=== PATIENT | female | born 1945 | race Caucasian/White ===

== ENCOUNTER 2017-08-15 09:37 | Day surgery (SDC) | payer MEDICARE, OTHER ==
[~2017-08-15 09:37] MED LIST: ALBU6.7H INH; HYCOS PO; MUCI600T PO; PRED20 PO
[2017-08-15 10:25] VITALS: BP 105/55; PULSE 77; RESP 14; TEMP 97.9; O2SAT 90
[2017-08-15 11:35] VITALS: BP 102/55; PULSE 76; RESP 18; TEMP 98.1; O2SAT 98
[2017-08-15 11:50] VITALS: BP 101/55; PULSE 75; RESP 18; O2SAT 98
[2017-08-15 12:15] VITALS: BP 106/58; PULSE 76; RESP 18; O2SAT 98
[2017-08-15 12:23] LABS: TOTAL PROTEIN,PERITONEAL FLUID 1.1 GM/DL
--- NOTE | 2017-08-15 12:52 | RADRPT ---
EXAM DATE/TIME: 08/15/2017 11:25 [place] COMPARISON: No previous studies available for comparison. INDICATIONS : Acites. MEDICAL HISTORY : Hepatitis A. Cirrhosis. GERD. SURGICAL HISTORY : Total knee replacement, left. Tonsillectomy. Cholecystectomy. Back surgery. Hysterectomy. ENCOUNTER: Subsequent ACUITY: 4 - 6 months PAIN SCORE: 0/10 LOCATION: Right lower quadrant FLUID: Total volume of 6200 cc of clear, yellow fluid was removed. Fluid was sent to lab for ordered studies. Post procedure scanning reveals no hematoma or other complication. TECHNIQUE: 1. Ultrasound guidance for abdominal paracentesis. 2. Paracentesis. The risks, benefits, and alternatives to ultrasound guided paracentesis were explained to the patient in detail including the risk of bleeding and infection. Written and verbal informed consent was obt ained. With the patient on the ultrasound table, ultrasound imaging was used to select the most appropriate approach for paracentesis. Overlying skin was prepped and draped in the usual sterile fashion and wi th a local anesthetic, a dermatotomy was made with an 11 blade scalpel. A 6 [place] [id number] ca theter was introduced into the peritoneal cavity and fluid was collected. The patient tolerated the procedure well and left the ultrasound suite in stable condition. CONCLUSION: Uncomplicated ultrasound guided paracentesis. Patient received albumin per protocol. Wilver Terrazas MD FACR on August 15, 2017 at 12:50 Board Certified Radiologist. This report was verified electronically.
[2017-08-15] MEDS ORDERED: ALBUMIN 25% INJ 0 ML IV ONE (13:00)
[2017-08-15 13:03] LABS: PERITONEAL BASO 1 %; PERITONEAL HISTIOCYTES 20 %; PERITONEAL LYMPHS 54 %; PERITONEAL MESOTHELIAL 1 %; PERITONEAL MONOS 11 %; PERITONEAL POLYS(SEGS) 13 %; PERITONEAL RBC 922 /MM3 (0-0)
[2017-08-15] MEDS ORDERED: LIDOCAINE HCL 1% 20 ML VIAL ONE (14:24)
== END 2017-08-15 13:17 | disposition home or self-care (01) ==
LOC: HRAD 09:37 → HRIP 09:39 → HRAD 13:17
PROVIDERS: ATTEND Internal Medicine Gastroenterology
DX: K74.60 Unspecified cirrhosis of liver (principal); B15.9 Hepatitis A without hepatic coma; K21.9 Gastro-esophageal reflux disease without esophagitis
CPT/HCPCS: 49083; 82042; 84157; 87070; 87205; 89051; 96365; C1729; P9047

== ENCOUNTER 2018-01-11 23:22 | Inpatient (IN) ==
[2018-01-11] MEDS ORDERED: Sod Chloride 0.9% Inj 1,000 ML IV.SIG ONE (23:38)
[2018-01-11] MEDS ORDERED: Pantoprazole Inj 40 MG Vial IV.PUSH ONE (23:38)
[2018-01-12 00:18] LABS: Baso % (Auto) 0.3 % (0.0-2.0); Eos % (Auto) 0.6 % (0.0-4.0); Hematocrit 25.8 % (35.0-46.0); Lymph # (Auto) 1.6 th/mm3 (1.0-4.8); Lymph % (Auto) 21.9 % (9.0-44.0); Mean Corpuscular HGB Conc 34.8 % (32.0-36.0); Mean Corpuscular Hemoglobin 35.5 pg (27.0-34.0); Mean Corpuscular Volume 102.2 fL (80.0-100.0); Mean Platelet Volume 8.1 fL (7.0-11.0); Mono # (Auto) 0.7 th/mm3 (0.0-0.9); Mono % (Auto) 10.3 % (0.0-8.0); Neut # (Auto) 4.8 th/mm3 (1.8-7.7); Neut % (Auto) 66.9 % (16.0-70.0); Platelet Count 87 th/mm3 (150-450); Red Blood Count 2.52 mil/mm3 (4.00-5.30); Red Cell Distribution Width 14.5 % (11.6-17.2); White Blood Count 7.1 th/mm3 (4.0-11.0)
[2018-01-12 00:23] LABS: Activated Partial Thrombo Time 21.4 sec (24.3-30.1); INR 1.3 Ratio; Prothrombin Time 13.4 sec (9.8-11.6)
[2018-01-12] MEDS: Octreotide Inj 500 MCG in Sodium Chlor 0.9% Inj 500 ML IV.CONT SCH ×3 (00:26→21:07)
[2018-01-12 00:27] LABS: Alanine Aminotransferase 36 U/L (10-53); Albumin 2.4 g/dL (3.4-5.0); Anion Gap 11 meq/L (5-15); Aspartate Aminotransferase 36 U/L (15-37); Blood Urea Nitrogen 57 mg/dL (7-18); Calcium 7.6 mg/dL (8.5-10.1); Carbon Dioxide 22.3 meq/L (21.0-32.0); Chloride 106 meq/L (98-107); Glomerular Filtration Rate 63 mL/min (>89); Glucose,Random 145 mg/dL (74-106); Lipase 158 U/L (73-393); Potassium 3.6 meq/L (3.5-5.1); Sodium 139 meq/L (136-145)
[2018-01-12 00:29] LABS: Alkaline Phosphatase 92 U/L (45-117); Total Protein 5.6 g/dL (6.4-8.2)
[2018-01-12] MEDS: Sod Chloride 0.9% Inj 1,000 ML IV.CONT SCH ×3 (00:30→16:31)
--- NOTE | 2018-01-12 00:46 | ED ---
HPI General Chief complaint: GI Bleed Stated complaint: ABD Pain Time Seen by Provider: 01/11/18 23:38 Source: patient and family Mode of arrival: EMS History of Present Illness HPI narrative: Is a 72-year-old woman with a history of cirrhosis who presents to the emergency department complaining hematemesis and melena. She is a history of cirrhosis. She has had 2 episodes of GI bleed in the past. This was attributed to gastric ulcers at the time, but she has been following up with [facility] that she had variceal bleeding. She was feeling well until earlier today she started her stools. Shortly before she called [facility], she started having vomiting of dark coffee-ground emesis. Some mild abdominal pain rating into the back accompanying this. Symptoms been worsening since onset. No other aggravating or alleviating factors. No other complaints. Related Data Home Medications Medication Instructions Recorded Confirmed amantadine HCl 100 mg PO BID 01/12/18 01/12/18 furosemide 80 mg PO DAILY 01/12/18 01/12/18 lactulose 10 g PO BID 01/12/18 01/12/18 sertraline 50 mg PO DAILY 01/12/18 01/12/18 spironolactone 200 mg PO DAILY 01/12/18 01/12/18 valacyclovir 1,000 mg PO BID 01/12/18 01/12/18 Allergies Allergy/AdvReac Type Severity Reaction Status Date / Time No Known Allergies Allergy Unverified 08/15/17 11:51 Review of Systems ROS Unobtainable All other systems reviewed negative except as stated in HPI [facility] Medical History Medical History Cirrhosis of liver (Acute) H/O: hysterectomy (Acute) Hepatitis A (Acute) Surgical History Surgical History History of back surgery (Acute) History of left knee replacement (Acute) Hx of cholecystectomy (Acute) Social History Social History Substance History: No History of Abuse Second Hand Smoke Exposure: No Smoking Status: Former smoker How Often Do You Have a Drink Containing Alcohol: Never Recent Travel in [facility] within the Last 8 Weeks: No Recent Out of Country Travel within the Last 8 Weeks: No Immunization History Tetanus Immunization: >5 Years Hx Influenza Vaccine This Season: Yes Exam Narrative Exam Narrative: GENERAL: 72-year-old woman, little bit pale appearing, nontoxic. SKIN: Focused skin assessment warm/dry. HEAD: Atraumatic. Normocephalic. EYES: Pupils equal and round. No scleral icterus. No injection or drainage. Pale conjunctiva. ENT: No nasal bleeding or discharge. Mucous membranes pink and moist. NECK: Trachea midline. No JVD. CARDIOVASCULAR: Regular rate and rhythm. No murmur appreciated. RESPIRATORY: No accessory muscle use. Clear to auscultation. Breath sounds equal bilaterally. GASTROINTESTINAL: Abdomen flat and soft. Minimal epigastric tenderness. RECTAL: Dark black stool in the rectal vault. Guaiac positive. MUSCULOSKELETAL: No obvious deformities. No clubbing. No cyanosis. No edema. NEUROLOGICAL: Awake and alert. No obvious cranial nerve deficits. Motor grossly within normal limits. Normal speech. PSYCHIATRIC: Appropriate mood and affect; insight and judgment normal. Procedures Hemaprompt Stool Procedural Steps Taken: specimen placed in appropriate test area, developer placed on specimen and control areas and controls appropriately positive and negative Hemaprompt Stool Result: positive Course Initial Documented Vital Signs Temperature 97.6 F 01/11/18 23:27 Pulse Rate 96 H 01/11/18 23:27 Respiratory Rate 15 01/11/18 23:27 Blood Pressure 89/45 L 01/11/18 23:27 Pulse Oximetry 100 01/11/18 23:27 Last Documented Vital Signs Temperature 97.6 F 01/11/18 23:27 Pulse Rate 94 H 01/12/18 01:28 Respiratory Rate 15 01/12/18 01:28 Blood Pressure 98/52 L 01/12/18 01:28 Pulse Oximetry 100 01/12/18 01:28 Medical Decision Making [facility] Narrative Medical decision making narrative: 72-year-old woman presents emergency department with. Hypotensive initially, responded well to IV fluids. Couple episodes of hematemesis since arrival. Was given PPI bolus and drip, octreotide drip, type and crossmatch for blood. Likely need transfusion, ICU admission, GI consultation. Lab Data Lab results reviewed: Yes I reviewed the patient's lab results. Result diagrams: 01/11/18 23:40 01/11/18 23:40 Lab Results 01/11/18 01/11/18 01/11/18 Range/Units 23:40 23:40 23:40 WBC 7.1 (4.0-11.0) th/mm3 RBC 2.52 L (4.00-5.30) mil/mm3 Hgb 9.0 L (11.6-15.3) gm/dL Hct 25.8 L (35.0-46.0) % MCV 102.2 H (80.0-100.0) fL MCH 35.5 H (27.0-34.0) pg MCHC 34.8 (32.0-36.0) % RDW 14.5 (11.6-17.2) % Plt Count 87 L (150-450) th/mm3 MPV 8.1 (7.0-11.0) fL Prelim Diff (Auto) Slide review pending Neut % (Auto) 66.9 (16.0-70.0) % Lymph % (Auto) 21.9 (9.0-44.0) % [place] % (Auto) 10.3 H (0.0-8.0) % Eos % (Auto) 0.6 (0.0-4.0) % Baso % (Auto) 0.3 (0.0-2.0) % Neut # (Auto) 4.8 (1.8-7.7) th/mm3 Lymph # (Auto) 1.6 (1.0-4.8) th/mm3 [place] # (Auto) 0.7 (0.0-0.9) th/mm3 Eos # (Auto) 0.0 (0.0-0.4) th/mm3 Baso # (Auto) 0.0 (0.0-0.2) th/mm3 WBC Differential . Diff Scan Auto diff confirmed Differential Comment . Platelet Estimate Low L (Normal) Platelet Morphology Normal (Normal) Ovalocytes 1+ H (None) Keratocytes Occ H (None) PT 13.4 H (9.8-11.6) sec INR 1.3 Ratio APTT 21.4 L (24.3-30.1) sec Sodium (136-145) meq/L Potassium (3.5-5.1) meq/L Chloride (98-107) meq/L Carbon Dioxide (21.0-32.0) meq/L Anion Gap (5-15) meq/L BUN (7-18) mg/dL Creatinine (0.50-1.00) mg/dL Estimated GFR (>89) mL/min Random Glucose (74-106) mg/dL Calcium (8.5-10.1) mg/dL Total Bilirubin (0.2-1.0) mg/dL AST (15-37) U/L ALT (10-53) U/L Alkaline Phosphatase (45-117) U/L Total Protein (6.4-8.2) g/dL Albumin (3.4-5.0) g/dL Lipase (73-393) U/L Blood Type O Positive Blood Type Recheck Required Antibody Screen Negative MTS Gel Crossmatch See Detail 01/11/18 Range/Units 23:40 WBC (4.0-11.0) th/mm3 RBC (4.00-5.30) mil/mm3 Hgb (11.6-15.3) gm/dL Hct (35.0-46.0) % MCV (80.0-100.0) fL MCH (27.0-34.0) pg MCHC (32.0-36.0) % RDW (11.6-17.2) % Plt Count (150-450) th/mm3 MPV (7.0-11.0) fL Prelim Diff (Auto) Neut % (Auto) (16.0-70.0) % Lymph % (Auto) (9.0-44.0) % [place] % (Auto) (0.0-8.0) % Eos % (Auto) (0.0-4.0) % Baso % (Auto) (0.0-2.0) % Neut # (Auto) (1.8-7.7) th/mm3 Lymph # (Auto) (1.0-4.8) th/mm3 [place] # (Auto) (0.0-0.9) th/mm3 Eos # (Auto) (0.0-0.4) th/mm3 Baso # (Auto) (0.0-0.2) th/mm3 WBC Differential Diff Scan Differential Comment Platelet Estimate (Normal) Platelet Morphology (Normal) Ovalocytes (None) Keratocytes (None) PT (9.8-11.6) sec INR Ratio APTT (24.3-30.1) sec Sodium 139 (136-145) meq/L Potassium 3.6 (3.5-5.1) meq/L Chloride 106 (98-107) meq/L Carbon Dioxide 22.3 (21.0-32.0) meq/L Anion Gap 11 (5-15) meq/L BUN 57 H (7-18) mg/dL Creatinine 0.88 (0.50-1.00) mg/dL Estimated GFR 63 L (>89) mL/min Random Glucose 145 H (74-106) mg/dL Calcium 7.6 L (8.5-10.1) mg/dL Total Bilirubin 0.9 (0.2-1.0) mg/dL AST 36 (15-37) U/L ALT 36 (10-53) U/L Alkaline Phosphatase 92 (45-117) U/L Total Protein 5.6 L (6.4-8.2) g/dL Albumin 2.4 L (3.4-5.0) g/dL Lipase 158 (73-393) U/L Blood Type Blood Type Recheck Antibody Screen MTS Gel Crossmatch Discharge Plan Physicians Team ED Provider: Fernandez Gottlieb Primary Care Provider: Isaias Monzon V Other Providers: Sabino Fuchs Rxs /Orders / Referrals /Forms Prescriptions: No Action amantadine HCl 100 mg Tablet 100 mg PO BID RF: 0 valacyclovir 1 gram Tablet 1,000 mg PO BID RF: 0 spironolactone 100 mg Tablet 200 mg PO DAILY RF: 0 furosemide 80 mg Tablet 80 mg PO DAILY RF: 0 sertraline 50 mg Tablet 50 mg PO DAILY RF: 0 lactulose 10 gram/15 mL Solution 10 g PO BID RF: 0 Discharge Interventions Interventions: Vital Signs Last Done: 01/12/18 01:28 Status ED Status: With Doctor
[2018-01-12 01:00] LABS: Ovalocytes 1+; Platelet Morphology Normal (Normal)
[2018-01-12] MEDS ORDERED: Acetaminophen 325 MG Tablet PO PRN (01:31)
[2018-01-12] MEDS ORDERED: Bisacodyl 10 MG Supp RECTAL PRN (01:31)
--- NOTE | 2018-01-12 01:37 | P.HPCC ---
History of Present Illness Primary Care Physician: Isaias Monzon MD History of Present Illness: 72-year-old woman with a history of liver cirrhosis presents complaining of hematemesis and melena. She has had 2 episodes of GI bleed in the past. This was attributed to gastric ulcers at the time, but she has been following up with [facility] for variceal bleeding. She was feeling well until earlier today when she has noted melanotic stool and started having vomiting of dark coffee-ground emesis. Some mild abdominal pain radiating into the her back accompanying this. Symptoms been worsening since onset. No other aggravating or alleviating factors. No other complaints. Review of Systems All other systems reviewed negative except as stated in HPI PMFSH - History History Provided By: Patient - Medical History Medical History: Medical History (Last Reviewed 01/12/18 @ 00:56 by Fernandez Gottlieb MD) Cirrhosis of liver H/O: hysterectomy Hepatitis A - Surgical History Surgical History: Surgical History (Last Reviewed 01/12/18 @ 00:56 by Fernandez Gottlieb MD) History of back surgery History of left knee replacement Hx of cholecystectomy - Tobacco History Second Hand Smoke Exposure: No Smoking Status: Former smoker - Alcohol History How Often Do You Have a Drink Containing Alcohol: Never - Substance Use History Substance History: No History of Abuse - Travel History Recent Travel in the [place] Within the Last 8 Weeks: No Recent Travel Out of the Country Within the Last 8 Weeks: No - Immunization History Tetanus Immunization: >5 Years Hx Influenza Vaccine This Season: Yes Medications and Allergies Active Medications: Active Medications Acetaminophen (Tylenol) 650 mg PO Q6H PRN PRN Reason: PAIN 1-10 AND/OR FEVER >101F Al Hydroxide/Mg Hydroxide (Milk Of Ana Liq) 30 ml PO Q12H PRN PRN Reason: Mild Constipation Albuterol (Duoneb Neb (Prn)) 1 ampul NEB Q2HR NEB PRN PRN Reason: WHEEZING Bisacodyl (Dulcolax Supp) 10 mg RECTAL DAILY PRN PRN Reason: SEVERE CONSITIPATION Chlorhexidine Gluconate (Chlorhexidine 2% Cloth) 3 pack TOPICAL DAILY@0400 SHARAN Stop: 01/17/18 03:59 Chlorhexidine Gluconate (Chlorhexidine 2% Cloth) 3 pack TOPICAL DAILY@0400 PRN PRN Reason: Extra cloth needed Stop: 01/17/18 03:59 Famotidine (Pepcid) 20 mg PO BID [facility] Pantoprazole Sodium 80 mg/ (Sodium Chloride) 100 mls @ 10 mls/hr IV.CONT CONT [facility] Octreotide Acetate 500 mcg/ (Sodium Chloride) 500.5 mls @ 50.05 mls/hr IV.CONT .Q10H SHARAN Last Admin: 01/12/18 00:26 Dose: 50 mcg/hr, 50.05 mls/hr Sodium Chloride (Ns Inj) 1,000 mls @ 154 mls/hr IV.CONT .Q6H30M [facility] Lactulose (Lactulose Liq) 30 ml PO DAILY PRN PRN Reason: SEVERE CONSITIPATION Morphine Sulfate (Morphine Inj) 2 mg IV.PUSH Q2H PRN PRN Reason: PAIN SCALE 6 TO 10 Ondansetron HCl (Zofran Inj) 4 mg IV.PUSH Q6H PRN PRN Reason: NAUSEA OR VOMITING Senna/Docusate Sodium (Mirian-Colace) 1 tab PO BID [facility] Sennosides (Senokot) 17.2 mg PO Q12H PRN PRN Reason: Moderate Constipation Sodium Chloride (Ns Flush) 2 ml IV.FLUSH PRN PRN PRN Reason: FLUSH AFTER USING IV ACCESS Sodium Chloride (Ns Flush) 2 ml IV.FLUSH BID [facility] Sodium Chloride (Ns Flush) 2 ml IV.FLUSH PRN PRN PRN Reason: FLUSH AFTER USING IV ACCESS Allergies Allergy/AdvReac Type Severity Reaction Status Date / Time No Known Allergies Allergy Unverified 08/15/17 11:51 Home Medications Medication Instructions Recorded Confirmed Type amantadine HCl 100 mg PO BID 01/12/18 01/12/18 History furosemide 80 mg PO DAILY 01/12/18 01/12/18 History lactulose 10 g PO BID 01/12/18 01/12/18 History sertraline 50 mg PO DAILY 01/12/18 01/12/18 History spironolactone 200 mg PO DAILY 01/12/18 01/12/18 History valacyclovir 1,000 mg PO BID 01/12/18 01/12/18 History Results - Labs CBC & Chem 7: 01/11/18 23:40 01/11/18 23:40 Labs: Short CBC 01/11/18 Range/Units 23:40 WBC 7.1 (4.0-11.0) th/mm3 Hgb 9.0 L (11.6-15.3) gm/dL Hct 25.8 L (35.0-46.0) % Plt Count 87 L (150-450) th/mm3 BMP 01/11/18 23:40 Sodium 139 Potassium 3.6 Chloride 106 Carbon Dioxide 22.3 BUN 57 H Creatinine 0.88 Calcium 7.6 L Liver Function 01/11/18 Range/Units 23:40 Total Bilirubin 0.9 (0.2-1.0) mg/dL AST 36 (15-37) U/L ALT 36 (10-53) U/L Alkaline Phosphatase 92 (45-117) U/L Albumin 2.4 L (3.4-5.0) g/dL Exam Vital signs: Vital Signs 01/11/18 23:27 01/11/18 23:43 01/11/18 23:44 Temperature 97.6 F Pulse Rate 96 H 94 H 96 H Respiratory Rate 15 20 Blood Pressure 89/45 L 99/54 L Pulse Oximetry 100 100 100 01/12/18 01:28 Temperature Pulse Rate 94 H Respiratory Rate 15 Blood Pressure 98/52 L Pulse Oximetry 100 Intake & Output 01/11/18 01/11/18 01/12/18 06:59 18:59 06:59 Weight 58.967 kg - Constitutional no acute distress - Routine HEENT Exam Head: Present: normocephalic, atraumatic Eye: Present: EOMI, PERRL, normal accommodation, conjunctivae pink - Routine Neck Exam Present: supple, full ROM. Absent: JVD, carotid bruit - Routine Respiratory Exam Absent: accessory muscle use, rales, respiratory distress, rhonchi, stridor, wheezes - Routine Cardiovascular Exam Present: RRR, S1, S2 - Routine Abdominal Exam Present: soft, normoactive bowel sounds. Absent: tenderness, distended - Routine Extremities Exam Absent: cyanosis, clubbing, edema - Routine Skin Exam Present: intact, dry. Absent: cyanosis, erythema - Routine Neurological Exam Present: alert, oriented X3, normal reflexes - Detailed Neurological Exam: Coma Scale Eye Opening: Spontaneous Verbal Response: Oriented Motor Response: Obey commands [place] Coma Scale Total: 15 Caprini VTE Risk Assessment Caprini VTE Risk Assessment: Moderate/High Risk (score >= 2) VTE Pharmacological Exception Reason: Hemorrhage Caprini Risk Assessment Model: Point Value = 1 Point Value = 2 Point Value = 3 Point Value = 5 Age 41-60 Minor surgery BMI > 25 kg/m2 Swollen legs Varicose veins or History of unexplained or recurrent spontaneous Oral contraceptives or hormone replacement Sepsis (< 1 month) Serious lung disease, including pneumonia (< 1 month) Abnormal pulmonary function Acute myocardial infarction Congestive heart failure (< 1 month) History of inflammatory bowel disease Medical patient at bed rest Age 61-74 Arthroscopic surgery Major open surgery (> 45 min) Laparoscopic surgery (> 45 min) Malignancy Confined to bed (> 72 hours) Immobilizing plaster cast Central venous access Age >= 75 History of VTE Family history of VTE Factor V Leiden Prothrombin [id number] Lupus anticoagulant Anticardiolipin antibodies Elevated serum homocysteine Heparin-induced thrombocytopenia Other congenital or acquired thrombophilia Stroke (< 1 month) Elective arthroplasty Hip, pelvis, or leg fracture Acute spinal cord injury (< 1 month) Prophylaxis Regimen: Total Risk Factor Score Risk Level Prophylaxis Regimen 0-1 Low Early ambulation 2 Moderate Order ONE of the following: *Sequential Compression Device (SCD) *Heparin 5000 units SQ BID 3-4 Higher Order ONE of the following medications: *Heparin 5000 units SQ TID *Enoxaparin/Lovenox 40 mg SQ daily (WT < 150 kg, CrCl > 30 mL/min) *Enoxaparin/Lovenox 30 mg SQ daily (WT < 150 kg, CrCl > 10-29 mL/min) *Enoxaparin/Lovenox 30 mg SQ BID (WT < 150 kg, CrCl > 30 mL/min) AND/OR *Sequential Compression Device (SCD) 5 or more Highest Order ONE of the following medications: *Heparin 5000 units SQ TID (Preferred with Epidurals) *Enoxaparin/Lovenox 40 mg SQ daily (WT < 150 kg, CrCl > 30 mL/min) *Enoxaparin/Lovenox 30 mg SQ daily (WT < 150 kg, CrCl > 10-29 mL/min) *Enoxaparin/Lovenox 30 mg SQ BID (WT < 150 kg, CrCl > 30 mL/min) AND *Sequential Compression Device (SCD) Assessment and Plan - Assessment and Plan Plan: Hematemesis -History of variceal bleed and liver cirrhosis -Questionable history of gastric ulcer -Protonix drip -Octreotide drip -Gastroenterology consultation -Rocephin SBP prophylaxis at the variceal bleed Anemia -Due to blood loss -Series of H&H -Transfuse to keep hemoglobin above 8 Thrombocytopenia -Underlying liver cirrhosis -Monitor trend -Transfuse if continues to bleed or platelets below 20 Hypoalbuminemia -Due to above -[employer] consultation DVT GI prophylaxis -Teds SCDs -No pharmacological DVT prophylaxis due to acute GI bleed -Protonix drip Critical Care: The total critical care time was 35 minutes. Time to perform other separately billable procedures was not included in the critical care time.
[2018-01-12] MEDS: Pantoprazole Inj 80 MG in Sodium Chlor 0.9% Inj 100 ML IV.CONT SCH ×3 (01:38→21:50)
[2018-01-12] MEDS: Chlorhexidine Gluconate 2% 1 Pack (2 Cloths) TOPICAL SCH (04:00)
[2018-01-12] MEDS ORDERED: Chlorhexidine Gluconate 2% 1 Pack (2 Cloths) TOPICAL PRN (04:00)
[2018-01-12] MEDS ORDERED: Dextrose 50% in Water 50 ML Vial IV.PUSH PRN (06:45)
[2018-01-12] MEDS: Senna/Docusate Sodium 8.6/50 MG Tablet PO SCH ×2 (08:13→21:52)
[2018-01-12] MEDS ORDERED: Famotidine 20 MG Tablet PO SCH (09:00)
--- NOTE | 2018-01-12 09:14 | P.CONGI ---
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 She has been seen by our service outpatient but currently follows up with [facility], last seen there last and is supposed to have a scheduled appt tomorrow for results regarding a MRI and labs. She states she is not a candidate for a liver transplant because she is not sick enough at this point. Pt presented to the ER last night with complaints of black, tarry stools and coffee ground emesis. Pt states she began not feeling well yesterday morning, had a gnawing, constant abdominal pain located across the entire middle of her abdomen. States pain was worse when she was about to have BM and relieved some after BMs for a short period of time. She had one episode of hematochezia and then states multiple episodes of melena that began around 10 pm last night. Also began having multiple episodes of coffee ground emesis at that time. Last EGD done by our service in Mar 2017 --> Gastritis in the antrum and hiatal hernia. Last colonoscopy in Feb 2017 --> Hemorrhoids, sigmoid diverticulosis and cecal polyp with pathology revealing tubular adenoma. Of note, pt has been taking Tylenol multiple times a day for back pain since March, states was told by [facility] to take Tylenol instead of Ibuprofen. Has not had any ETOH since March. <Thais Shipman - Last Filed: 01/12/18 09:01> Review of Systems Gastrointestinal: Reports abdominal pain, Reports black, tarry stools, Reports bright, red blood in stools, Reports nausea, Reports vomiting <Thais Shipman - Last Filed: 01/12/18 09:01> PMFSH - History History Provided By: Patient - Medical History Medical History: Medical History (Last Reviewed 01/12/18 @ 00:56 by Fernandez Gottlieb MD) Cirrhosis of liver H/O: hysterectomy Hepatitis A - Surgical History Surgical History: Surgical History (Last Reviewed 01/12/18 @ 00:56 by Fernandez Gottlieb MD) History of back surgery History of left knee replacement Hx of cholecystectomy - Tobacco History Second Hand Smoke Exposure: No Smoking Status: Former smoker - Alcohol History How Often Do You Have a Drink Containing Alcohol: Never - Substance Use History Substance History: No History of Abuse - Travel History Recent Travel in the [place] Within the Last 8 Weeks: No Recent Travel Out of the Country Within the Last 8 Weeks: No - Immunization History Tetanus Immunization: >5 Years Hx Influenza Vaccine This Season: Yes <GeriThais torres - Last Filed: 01/12/18 09:01> - Medical History Medical History: Medical History (Last Reviewed 01/12/18 @ 00:56 by Fernandez Gottlieb MD) Cirrhosis of liver H/O: hysterectomy Hepatitis A - Surgical History Surgical History: Surgical History (Last Reviewed 01/12/18 @ 00:56 by Fernandez Gottlieb MD) History of back surgery History of left knee replacement Hx of cholecystectomy <Sabino Fuchs - Last Filed: 01/12/18 14:46> Medications and Allergies Active Medications: Active Medications Acetaminophen (Tylenol) 650 mg PO Q6H PRN PRN Reason: PAIN 1-10 AND/OR FEVER >101F Al Hydroxide/Mg Hydroxide (Milk Of Ana Liliam) 30 ml PO Q12H PRN PRN Reason: Mild Constipation Albuterol (Duoneb Neb (Prn)) 1 ampul NEB Q2HR NEB PRN PRN Reason: WHEEZING Bisacodyl (Dulcolax Supp) 10 mg RECTAL DAILY PRN PRN Reason: SEVERE CONSITIPATION Chlorhexidine Gluconate (Chlorhexidine 2% Cloth) 3 pack TOPICAL DAILY@0400 [facility] Stop: 01/17/18 03:59 Last Admin: 01/12/18 04:00 Dose: 3 pack Chlorhexidine Gluconate (Chlorhexidine 2% Cloth) 3 pack TOPICAL DAILY@0400 PRN PRN Reason: Extra cloth needed Stop: 01/17/18 03:59 Dextrose (D50w Vial) 50 ml IV.PUSH UNSCH PRN PRN Reason: PER HYPOGLYCEMIA PROTOCOL Glucagon (Glucagon Inj) 1 mg OTHER PRN PRN PRN Reason: for Hypoglycemia Protocol Pantoprazole Sodium 80 mg/ (Sodium Chloride) 100 mls @ 10 mls/hr IV.CONT CONT [facility] Last Admin: 01/12/18 01:38 Dose: 10 mls/hr Octreotide Acetate 500 mcg/ (Sodium Chloride) 500.5 mls @ 50.05 mls/hr IV.CONT .Q10H [facility] Last Admin: 01/12/18 00:26 Dose: 50 mcg/hr, 50.05 mls/hr Sodium Chloride (Ns Inj) 1,000 mls @ 154 mls/hr IV.CONT .Q6H30M [facility] Last Admin: 01/12/18 08:12 Dose: 154 mls/hr Ceftriaxone Sodium 2,000 mg/ (Sodium Chloride) 100 mls @ 200 mls/hr IV.SIG Q12H [facility] Last Infusion: 01/12/18 07:25 Dose: Infused Insulin Human Regular (Novolin R Correctional Sugar Inj) 0 units SQ Q6HR [facility]; Protocol Lactulose (Lactulose Liq) 30 ml PO DAILY PRN PRN Reason: SEVERE CONSITIPATION Morphine Sulfate (Morphine Inj) 2 mg IV.PUSH Q2H PRN PRN Reason: PAIN SCALE 6 TO 10 Ondansetron HCl (Zofran Odt) 4 mg PO Q6H PRN PRN Reason: NAUSEA OR VOMITING Senna/Docusate Sodium (Mirian-Colace) 1 tab PO BID [facility] Last Admin: 01/12/18 08:13 Dose: Not Given Sennosides (Senokot) 17.2 mg PO Q12H PRN PRN Reason: Moderate Constipation Sodium Chloride (Ns Flush) 2 ml IV.FLUSH PRN PRN PRN Reason: FLUSH AFTER USING IV ACCESS Sodium Chloride (Ns Flush) 2 ml IV.FLUSH BID [facility] Last Admin: 01/12/18 08:13 Dose: 2 ml Sodium Chloride (Ns Flush) 2 ml IV.FLUSH PRN PRN PRN Reason: FLUSH AFTER USING IV ACCESS <Thais Shipman - Last Filed: 01/12/18 09:01> Active Medications: Active Medications Acetaminophen (Tylenol) 650 mg PO Q6H PRN PRN Reason: PAIN 1-10 AND/OR FEVER >101F Al Hydroxide/Mg Hydroxide (Milk Of Magnesia Liq) 30 ml PO Q12H PRN PRN Reason: Mild Constipation Albuterol (Duoneb Neb (Prn)) 1 ampul NEB Q2HR NEB PRN PRN Reason: WHEEZING Bisacodyl (Dulcolax Supp) 10 mg RECTAL DAILY PRN PRN Reason: SEVERE CONSITIPATION Chlorhexidine Gluconate (Chlorhexidine 2% Cloth) 3 pack TOPICAL DAILY@0400 [facility] Stop: 01/17/18 03:59 Last Admin: 01/12/18 04:00 Dose: 3 pack Chlorhexidine Gluconate (Chlorhexidine 2% Cloth) 3 pack TOPICAL DAILY@0400 PRN PRN Reason: Extra cloth needed Stop: 01/17/18 03:59 Dextrose (D50w Vial) 50 ml IV.PUSH UNSCH PRN PRN Reason: PER HYPOGLYCEMIA PROTOCOL Glucagon (Glucagon Inj) 1 mg OTHER PRN PRN PRN Reason: for Hypoglycemia Protocol Pantoprazole Sodium 80 mg/ (Sodium Chloride) 100 mls @ 10 mls/hr IV.CONT CONT [facility] Last Admin: 01/12/18 11:08 Dose: 10 mls/hr Octreotide Acetate 500 mcg/ (Sodium Chloride) 500.5 mls @ 50.05 mls/hr IV.CONT .Q10H [facility] Last Admin: 01/12/18 11:07 Dose: 50 mcg/hr, 50.05 mls/hr Sodium Chloride (Ns Inj) 1,000 mls @ 75 mls/hr IV.CONT .[id number] [facility] Last Infusion: 01/12/18 12:10 Dose: 154 mls/hr Ceftriaxone Sodium 2,000 mg/ (Sodium Chloride) 100 mls @ 200 mls/hr IV.SIG Q12H [facility] Last Admin: 01/12/18 14:01 Dose: 200 mls/hr Insulin Human Regular (Novolin R Correctional Sugar Inj) 0 units SQ Q6HR [facility]; Protocol Last Admin: 01/12/18 13:58 Dose: Not Given Lactulose (Lactulose Liq) 30 ml PO DAILY PRN PRN Reason: SEVERE CONSITIPATION Miscellaneous Information (Misc Nursing Information) 1 each OTHER UNSCH PRN PRN Reason: SEE LABEL COMMENTS Stop: 01/13/18 12:20 Morphine Sulfate (Morphine Inj) 2 mg IV.PUSH Q2H PRN PRN Reason: PAIN SCALE 6 TO 10 Ondansetron HCl (Zofran Odt) 4 mg PO Q6H PRN PRN Reason: NAUSEA OR VOMITING Senna/Docusate Sodium (Mirian-Colace) 1 tab PO BID [facility] Last Admin: 01/12/18 08:13 Dose: Not Given Sennosides (Senokot) 17.2 mg PO Q12H PRN PRN Reason: Moderate Constipation Sodium Chloride (Ns Flush) 2 ml IV.FLUSH BID [facility] Last Admin: 01/12/18 08:13 Dose: 2 ml Sodium Chloride (Ns Flush) 2 ml IV.FLUSH PRN PRN PRN Reason: FLUSH AFTER USING IV ACCESS <Sabino Fuchs - Last Filed: 01/12/18 14:46> Allergies Allergy/AdvReac Type Severity Reaction Status Date / Time No Known Allergies Allergy Unverified 08/15/17 11:51 Home Medications Medication Instructions Recorded Confirmed Type amantadine HCl 100 mg PO BID 01/12/18 01/12/18 History furosemide 80 mg PO DAILY 01/12/18 01/12/18 History lactulose 10 g PO BID 01/12/18 01/12/18 History sertraline 50 mg PO DAILY 01/12/18 01/12/18 History spironolactone 200 mg PO DAILY 01/12/18 01/12/18 History valacyclovir 1,000 mg PO BID 01/12/18 01/12/18 History Exam Vital signs: Vital Signs 01/11/18 23:27 01/11/18 23:43 01/11/18 23:44 Temperature 97.6 F Pulse Rate 96 H 94 H 96 H Respiratory Rate 15 20 Blood Pressure 89/45 L 99/54 L Pulse Oximetry 100 100 100 01/12/18 01:28 01/12/18 01:56 01/12/18 04:00 Temperature 98.5 F Pulse Rate 94 H 97 H 96 H Respiratory Rate 15 15 17 Blood Pressure 98/52 L 101/54 L 104/56 L Pulse Oximetry 100 99 100 01/12/18 07:00 Temperature Pulse Rate Respiratory Rate Blood Pressure Pulse Oximetry 100 Intake & Output 01/11/18 01/12/18 01/12/18 18:59 06:59 18:59 Intake Total 1000 / 1000 1100 / 1100 Output Total 400 / 400 Balance 600 / 600 1100 / 1100 Weight 66 kg Intake: IV 1000 / 1000 1100 / 1100 NS Inj 1,000 ML @ 154 mls/hr IV 1000 / 1000 .CONT .Q6H30M [facility] Rx#:[id number] NS Inj 1,000 ML @ Wide Open IV. 1000 / 1000 SIG [facility] Rx#:[id number] Rocephin Inj 2,000 MG In NS Inj 100 / 100 100 ML @ 200 mls/hr IV.SIG Q12H [facility] Rx#:[id number] Output: Urine 400 / 400 Other: Date of Last Bowel Movement 01/11/18 Weight On Admission 66 kg - Routine HEENT Exam Head: Present: normocephalic, atraumatic - Routine Respiratory Exam Absent: accessory muscle use - Routine Cardiovascular Exam Present: RRR - Routine Abdominal Exam Present: soft, normoactive bowel sounds, distended. Absent: tenderness Comments: NG to LIWS - Routine Skin Exam Present: dry, warm - Routine Neurological Exam Present: alert, oriented X3 <Thais Shipman - Last Filed: 01/12/18 09:01> Vital signs: Vital Signs 01/11/18 23:27 01/11/18 23:43 01/11/18 23:44 Temperature 97.6 F Pulse Rate 96 H 94 H 96 H Respiratory Rate 15 20 Blood Pressure 89/45 L 99/54 L Pulse Oximetry 100 100 100 01/12/18 01:28 01/12/18 01:56 01/12/18 04:00 Temperature 98.5 F Pulse Rate 94 H 97 H 96 H Respiratory Rate 15 15 17 Blood Pressure 98/52 L 101/54 L 104/56 L Pulse Oximetry 100 99 100 01/12/18 07:00 01/12/18 08:00 01/12/18 09:00 Temperature 97.7 F Pulse Rate 89 93 H Respiratory Rate Blood Pressure 101/58 L Pulse Oximetry 100 100 01/12/18 09:04 01/12/18 11:26 01/12/18 12:17 Temperature 98.4 F 97.7 F Pulse Rate 105 H 89 Respiratory Rate 12 20 Blood Pressure 100/54 L 99/54 L Pulse Oximetry 99 100 95 01/12/18 12:30 01/12/18 12:40 Temperature 97.7 F Pulse Rate 90 107 H Respiratory Rate 20 20 Blood Pressure 95/48 L 105/53 L Pulse Oximetry 95 95 Intake & Output 01/11/18 01/12/18 01/12/18 18:59 06:59 18:59 Intake Total 1000 / 1000 1900.5 / 1900.5 Output Total 400 / 400 Balance 600 / 600 1900.5 / 1900.5 Weight 66 kg Intake: IV 1000 / 1000 1900.5 / 1900.5 SandoSTATIN Inj 500 MCG In NS 500.5 / 500.5 Inj 500 ML @ 50 MCG/HR 50.05 mls/hr IV.CONT .Q10H [facility] Rx#: [id number] Protonix Inj 80 MG In NS Inj 100 / 100 100 ML @ 10 mls/hr IV.CONT CONT [facility] Rx#:[id number] NS Inj 1,000 ML @ 154 mls/hr IV 1200 / 1200 .CONT .Q6H30M [facility] Rx#:[id number] NS Inj 1,000 ML @ Wide Open IV. 1000 / 1000 SIG BOLUS ONE Rx#:[id number] Rocephin Inj 2,000 MG In NS Inj 100 / 100 100 ML @ 200 mls/hr IV.SIG Q12H [facility] Rx#:[id number] Output: Urine 400 / 400 Other: Date of Last Bowel Movement 01/11/18 01/11/18 Weight On Admission 66 kg <Sabino Fuchs - Last Filed: 01/12/18 14:46> Results - Labs CBC & Chem 7: 01/11/18 23:40 01/11/18 23:40 Labs: Laboratory Results - last 24 hr 01/11/18 01/11/18 01/11/18 23:40 23:40 23:40 WBC 7.1 RBC 2.52 L Hgb 9.0 L Hct 25.8 L MCV 102.2 H MCH 35.5 H MCHC 34.8 RDW 14.5 Plt Count 87 L MPV 8.1 Prelim Diff (Auto) Slide review pending Neut % (Auto) 66.9 Lymph % (Auto) 21.9 [place] % (Auto) 10.3 H Eos % (Auto) 0.6 Baso % (Auto) 0.3 Neut # (Auto) 4.8 Lymph # (Auto) 1.6 [place] # (Auto) 0.7 Eos # (Auto) 0.0 Baso # (Auto) 0.0 WBC Differential . Diff Scan Auto diff confirmed Differential Comment . Platelet Estimate Low L Platelet Morphology Normal Ovalocytes 1+ H Keratocytes Occ H PT 13.4 H INR 1.3 APTT 21.4 L Sodium Potassium Chloride Carbon Dioxide Anion Gap BUN Creatinine Estimated GFR Random Glucose Calcium Total Bilirubin AST ALT Alkaline Phosphatase Total Protein Albumin Lipase Nasal Screen MRSA (PCR) Blood Type O Positive Blood Type Recheck Required Antibody Screen Negative MTS Gel Crossmatch See Detail 01/11/18 01/12/18 23:40 03:40 WBC RBC Hgb Hct MCV MCH MCHC RDW Plt Count MPV Prelim Diff (Auto) Neut % (Auto) Lymph % (Auto) [place] % (Auto) Eos % (Auto) Baso % (Auto) Neut # (Auto) Lymph # (Auto) [place] # (Auto) Eos # (Auto) Baso # (Auto) WBC Differential Diff Scan Differential Comment Platelet Estimate Platelet Morphology Ovalocytes Keratocytes PT INR APTT Sodium 139 Potassium 3.6 Chloride 106 Carbon Dioxide 22.3 Anion Gap 11 BUN 57 H Creatinine 0.88 Estimated GFR 63 L Random Glucose 145 H Calcium 7.6 L Total Bilirubin 0.9 AST 36 ALT 36 Alkaline Phosphatase 92 Total Protein 5.6 L Albumin 2.4 L Lipase 158 Nasal Screen MRSA (PCR) Not detected Blood Type Blood Type Recheck Antibody Screen MTS Gel Crossmatch <Thais Shipman - Last Filed: 01/12/18 09:01> - Labs CBC & Chem 7: 01/12/18 09:50 01/12/18 09:50 Labs: Laboratory Results - last 24 hr 01/11/18 01/11/18 01/11/18 23:40 23:40 23:40 WBC 7.1 RBC 2.52 L Hgb 9.0 L Hct 25.8 L MCV 102.2 H MCH 35.5 H MCHC 34.8 RDW 14.5 Plt Count 87 L MPV 8.1 Prelim Diff (Auto) Slide review pending Neut % (Auto) 66.9 Lymph % (Auto) 21.9 [place] % (Auto) 10.3 H Eos % (Auto) 0.6 Baso % (Auto) 0.3 Neut # (Auto) 4.8 Lymph # (Auto) 1.6 [place] # (Auto) 0.7 Eos # (Auto) 0.0 Baso # (Auto) 0.0 WBC Differential . Diff Scan Auto diff confirmed Differential Comment . Platelet Estimate Low L Platelet Morphology Normal Ovalocytes 1+ H Keratocytes Occ H PT 13.4 H INR 1.3 APTT 21.4 L Sodium Potassium Chloride Carbon Dioxide Anion Gap BUN Creatinine Estimated GFR POC Glucose Random Glucose Calcium Phosphorus Magnesium Total Bilirubin AST ALT Alkaline Phosphatase Total Protein Albumin Lipase Nasal Screen MRSA (PCR) Acetaminophen Blood Type O Positive Blood Type Recheck Required Antibody Screen Negative MTS Gel Crossmatch See Detail 01/11/18 01/12/18 01/12/18 23:40 03:40 09:50 WBC 6.9 RBC 2.34 L Hgb 8.3 L Hct 24.2 L MCV 103.0 H MCH 35.5 H MCHC 34.4 RDW 14.4 Plt Count 82 L MPV 8.3 Prelim Diff (Auto) Slide review pending Neut % (Auto) 60.6 Lymph % (Auto) 25.7 [place] % (Auto) 12.8 H Eos % (Auto) 0.6 Baso % (Auto) 0.3 Neut # (Auto) 4.1 Lymph # (Auto) 1.8 [place] # (Auto) 0.9 Eos # (Auto) 0.0 Baso # (Auto) 0.0 WBC Differential . Diff Scan Auto diff confirmed Differential Comment . Platelet Estimate Platelet Morphology Ovalocytes Keratocytes PT INR APTT Sodium 139 Potassium 3.6 Chloride 106 Carbon Dioxide 22.3 Anion Gap 11 BUN 57 H Creatinine 0.88 Estimated GFR 63 L POC Glucose Random Glucose 145 H Calcium 7.6 L Phosphorus Magnesium Total Bilirubin 0.9 AST 36 ALT 36 Alkaline Phosphatase 92 Total Protein 5.6 L Albumin 2.4 L Lipase 158 Nasal Screen MRSA (PCR) Not detected Acetaminophen Blood Type Blood Type Recheck Antibody Screen MTS Gel Crossmatch 01/12/18 01/12/18 01/12/18 09:50 09:50 12:32 WBC RBC Hgb Hct MCV MCH MCHC RDW Plt Count MPV Prelim Diff (Auto) Neut % (Auto) Lymph % (Auto) [place] % (Auto) Eos % (Auto) Baso % (Auto) Neut # (Auto) Lymph # (Auto) [place] # (Auto) Eos # (Auto) Baso # (Auto) WBC Differential Diff Scan Differential Comment Platelet Estimate Platelet Morphology Ovalocytes Keratocytes PT INR APTT Sodium 140 Potassium 4.3 Chloride 108 H Carbon Dioxide 22.7 Anion Gap 9 BUN 57 H Creatinine 0.74 Estimated GFR 77 L POC Glucose 119 H Random Glucose 134 H Calcium 7.6 L Phosphorus 3.0 Magnesium 1.8 Total Bilirubin 0.6 AST 39 H ALT 38 Alkaline Phosphatase 86 Total Protein 5.9 L Albumin 2.6 L Lipase Nasal Screen MRSA (PCR) Acetaminophen Less than 2.0 L Blood Type Blood Type Recheck Antibody Screen MTS Gel Crossmatch <Sabino Fuchs Filed: 01/12/18 14:46> Assessment and Plan - Plan Assessment: - GIB Presented to the ER last night with complaints of black, tarry stools and coffee ground emesis. Pt states she began not feeling well yesterday morning, had a gnawing, constant abdominal pain located across the entire middle of her abdomen. States pain was worse when she was about to have BM and relieved some after BMs for a short period of time. She had one episode of hematochezia and then states multiple episodes of melena that began around 10 pm last night. Also began having multiple episodes of coffee ground emesis at that time. EGD done by our service in Mar 2017 --> Gastritis in the antrum and hiatal hernia. Colonoscopy in Feb 2017 --> Hemorrhoids, sigmoid diverticulosis and cecal polyp with pathology revealing tubular adenoma. Of note, pt has been taking Tylenol multiple times a day for back pain since March, states was told by [facility] to take Tylenol instead of Ibuprofen. Has not had any ETOH since March. - Cirrhosis with portal HTN- secondary to ETOH and she states Hepatitis A as a child Has been followed by our service outpatient but most recently seen by [facility] last and was supposed to have a follow up appt regarding lab and MRI results tomorrow. States not a candidate for a liver transplant because she is not sick enough - Thrombocytopenia- secondary to above - platelets 87 Plan: EGD today Obtain consent Keep NPO NG to LIWS Protonix gtt Octreotide gtt Monitor H/H Stool studies Further recommendations to follow Pt has been seen and examined by myself and Dr. Fuchs and this note is written on his behalf <Thais Shipman - Last Filed: 01/12/18 09:01> - Plan Agree with above. Monitor labs. EGD today. PPI/Octreotide drip. - Attending Attestation The exam, history, and the medical decision-making described in the above note were completed with the assistance of the mid-level provider. I reviewed and agree with the findings presented. I attest that I had a [id number] encounter with the patient on the same day, and personally performed and documented my assessment and findings in the medical record. <Sabino Fuchs - Last Filed: 01/12/18 14:46>
[2018-01-12 11:20] LABS: Baso % (Auto) 0.3 % (0.0-2.0); Eos % (Auto) 0.6 % (0.0-4.0); Hematocrit 24.2 % (35.0-46.0); Hemoglobin 8.3 gm/dL (11.6-15.3); Lymph # (Auto) 1.8 th/mm3 (1.0-4.8); Lymph % (Auto) 25.7 % (9.0-44.0); Mean Corpuscular HGB Conc 34.4 % (32.0-36.0); Mean Corpuscular Hemoglobin 35.5 pg (27.0-34.0); Mean Platelet Volume 8.3 fL (7.0-11.0); Mono # (Auto) 0.9 th/mm3 (0.0-0.9); Mono % (Auto) 12.8 % (0.0-8.0); Neut # (Auto) 4.1 th/mm3 (1.8-7.7); Neut % (Auto) 60.6 % (16.0-70.0); Platelet Count 82 th/mm3 (150-450); Red Blood Count 2.34 mil/mm3 (4.00-5.30); Red Cell Distribution Width 14.4 % (11.6-17.2); White Blood Count 6.9 th/mm3 (4.0-11.0)
[2018-01-12 11:41] LABS: Alanine Aminotransferase 38 U/L (10-53); Albumin 2.6 g/dL (3.4-5.0); Anion Gap 9 meq/L (5-15); Aspartate Aminotransferase 39 U/L (15-37); Blood Urea Nitrogen 57 mg/dL (7-18); Calcium 7.6 mg/dL (8.5-10.1); Carbon Dioxide 22.7 meq/L (21.0-32.0); Chloride 108 meq/L (98-107); Glomerular Filtration Rate 77 mL/min (>89); Glucose,Random 134 mg/dL (74-106); Magnesium 1.8 mg/dL (1.5-2.5); Potassium 4.3 meq/L (3.5-5.1); Sodium 140 meq/L (136-145)
[2018-01-12 11:43] LABS: Alkaline Phosphatase 86 U/L (45-117); Total Protein 5.9 g/dL (6.4-8.2)
[2018-01-12] MEDS ORDERED: Succinylcholine Inj 100 MG/5 ML Syringe IV.PUSH ONE (12:00)
[2018-01-12] MEDS ORDERED: Lidocaine PF 1% Inj 5 ML Syringe INFILTRATN ONE (12:00)
--- NOTE | 2018-01-12 12:08 | GIPROC ---
[facility] [address] [facility]. [facility], [address] EGD PROCEDURE REPORT EXAM DATE: 01/12/2018 PATIENT NAME: Court Pierce MR #: [id number] BIRTHDATE: 1945 ATTENDING: Sabino Fuchs MD ORDER #: [id number] COMPUTER ENGINEERING PROFESSOR: Teetee Cardoso and Renetta Leigh STATUS: inpatient INDICATIONS: The patient is a 72 yr old female here for an EGD due to acute post hemorrhagic anemia and melena PROCEDURE PERFORMED: EGD, diagnostic MEDICATIONS: None and Per Anesthesia. TOPICAL ANESTHETIC: CONSENT: The patient understands the risks and benefits of the procedure and understands that these risks include, but are not limited to: sedation, allergic reaction, infection, perforation and/or bleeding. Alternative means of evaluation and treatment include, among others: physical exam, x-rays, and/or surgical intervention. The patient elects to proceed with this endoscopic procedure. medical equipment was checked for proper function. Hand hygiene and appropriate measures for infection prevention was taken. After the risks, benefits and alternatives of the procedure were thoroughly explained, Informed consent was verified, confirmed and timeout was successfully executed by the treatment team. The patient was anesthetized with topical anesthesia and the Pentax [id number] endoscope was introduced through the mouth and advanced to the second portion of the duodenum. Retroflexed views revealed large food bolus with old blood The gastroscope was then slowly withdrawn and removed. ESOPHAGUS: There was a single small varix in the distal esophagus. There was evidence of prior scarring. STOMACH: Coffee grounds and large food bolus mixed with old blood in the fundus/body. No active bleeding seen. ADVERSE EVENTS: There were no complications. IMPRESSIONS: 1. Coffee grounds and large food bolus mixed with old blood in the fundus/body. No active bleeding seen 2. Retroflexed views revealed large food bolus with old blood RECOMMENDATIONS: 1. Anti-reflux regimen 2. Continue PPI PATIENT CONDITION: stable DISPOSITION: Inpatient REPEAT EXAM: Return 1 day EGD Sabino Fuchs MD eSigned: Sabino Fuchs MD 01/12/2018 12:08 PM cc: PATIENT NAME: Court Pierce MR#: [id number]
[2018-01-12] MEDS ORDERED: fentaNYL Citrate Inj 100 MCG/2 ML Ampul ONE (12:43)
[2018-01-12] MEDS: Insulin NovoLIN Regular Correctional Sugar Inj SQ SCH ×2 (13:58→18:17)
[2018-01-12 19:33] LABS: Hematocrit 24.9 % (35.0-46.0); Hemoglobin 8.5 gm/dL (11.6-15.3)
[2018-01-13] MEDS: Insulin NovoLIN Regular Correctional Sugar Inj SQ SCH ×4 (00:53→18:08)
[2018-01-13] MEDS: Chlorhexidine Gluconate 2% 1 Pack (2 Cloths) TOPICAL SCH (06:10)
[2018-01-13] MEDS: Sod Chloride 0.9% Inj 1,000 ML IV.CONT SCH ×2 (06:11→18:12)
[2018-01-13] MEDS: Octreotide Inj 500 MCG in Sodium Chlor 0.9% Inj 500 ML IV.CONT SCH ×2 (06:21→17:07)
[2018-01-13 06:24] LABS: Baso % (Auto) 0.2 % (0.0-2.0); Eos % (Auto) 0.1 % (0.0-4.0); Hematocrit 21.7 % (35.0-46.0); Hemoglobin 7.3 gm/dL (11.6-15.3); Lymph # (Auto) 1.3 th/mm3 (1.0-4.8); Lymph % (Auto) 17.6 % (9.0-44.0); Mean Corpuscular HGB Conc 33.8 % (32.0-36.0); Mean Corpuscular Hemoglobin 34.9 pg (27.0-34.0); Mean Corpuscular Volume 103.1 fL (80.0-100.0); Mean Platelet Volume 7.7 fL (7.0-11.0); Mono # (Auto) 0.7 th/mm3 (0.0-0.9); Mono % (Auto) 9.9 % (0.0-8.0); Neut # (Auto) 5.4 th/mm3 (1.8-7.7); Neut % (Auto) 72.2 % (16.0-70.0); Platelet Count 79 th/mm3 (150-450); Red Blood Count 2.11 mil/mm3 (4.00-5.30); Red Cell Distribution Width 14.9 % (11.6-17.2); White Blood Count 7.4 th/mm3 (4.0-11.0)
[2018-01-13 06:25] LABS: Activated Partial Thrombo Time 25.7 sec (24.3-30.1); INR 1.2 Ratio; Prothrombin Time 12.4 sec (9.8-11.6)
[2018-01-13 07:04] LABS: Alanine Aminotransferase 38 U/L (10-53); Albumin 2.6 g/dL (3.4-5.0); Alkaline Phosphatase 77 U/L (45-117); Anion Gap 9 meq/L (5-15); Aspartate Aminotransferase 39 U/L (15-37); Blood Urea Nitrogen 35 mg/dL (7-18); Calcium 7.7 mg/dL (8.5-10.1); Carbon Dioxide 20.7 meq/L (21.0-32.0); Chloride 110 meq/L (98-107); Glomerular Filtration Rate 75 mL/min (>89); Glucose,Random 134 mg/dL (74-106); Magnesium 1.8 mg/dL (1.5-2.5); Phosphorus 2.6 mg/dL (2.5-4.9); Potassium 4.1 meq/L (3.5-5.1); Sodium 140 meq/L (136-145); Total Protein 6.1 g/dL (6.4-8.2)
[2018-01-13 07:45] LABS: Platelet Morphology Normal (Normal)
[2018-01-13] MEDS: Senna/Docusate Sodium 8.6/50 MG Tablet PO SCH ×2 (08:37→22:23)
[2018-01-13] MEDS: Pantoprazole Inj 80 MG in Sodium Chlor 0.9% Inj 100 ML IV.CONT SCH ×2 (08:55→22:23)
--- NOTE | 2018-01-13 10:24 | P.PNCC ---
Subjective Subjective Remarks/Hospital Course: 72-year-old woman with a history of liver cirrhosis presents complaining of hematemesis and melena. She has had 2 episodes of GI bleed in the past. This was attributed to gastric ulcers at the time, but she has been following up with [place] for variceal bleeding. She was feeling well until earlier today when she has noted melanotic stool and started having vomiting of dark coffee-ground emesis. Some mild abdominal pain radiating into the her back accompanying this. Symptoms been worsening since onset. No other aggravating or alleviating factors. No other complaints. Subjective 01/13: Patient complaining of headache, intermittent chest pain, abdominal pain and insomnia. Notified of small varix esophagus overnight with old blood/coffee -ground. No acute signs of bleeding. Plan for colonoscopy today. Objective Vital Signs / I&O: Vital Signs 01/12/18 11:26 01/12/18 12:17 01/12/18 12:30 Temperature 98.4 F 97.7 F Pulse Rate 105 H 89 90 Respiratory Rate 12 20 20 Blood Pressure 100/54 L 99/54 L 95/48 L Pulse Oximetry 100 95 95 01/12/18 12:40 01/12/18 16:00 01/12/18 19:00 Temperature 97.7 F 97.6 F Pulse Rate 107 H 89 Respiratory Rate 20 Blood Pressure 105/53 L 103/54 L Pulse Oximetry 95 100 100 01/12/18 20:00 01/13/18 00:00 01/13/18 04:00 Temperature 97.4 F L 98.5 F 98.2 F Pulse Rate 91 H 96 H 91 H Respiratory Rate 22 21 16 Blood Pressure 111/55 L 121/60 115/58 L Pulse Oximetry 100 98 98 01/13/18 07:00 01/13/18 08:00 01/13/18 09:00 Temperature 98.5 F Pulse Rate 92 H 95 H Respiratory Rate 25 H Blood Pressure 92/54 L Pulse Oximetry 100 95 Intake & Output 01/12/18 01/13/18 01/13/18 18:59 06:59 18:59 Intake Total 3280.5 / 3280.5 2200 / 2200 100 / 100 Output Total 1200 / 1200 400 / 400 Balance 2080.5 / 2080.5 1800 / 1800 100 / 100 Weight 70.5 kg Intake: IV 2800.5 / 2800.5 2200 / 2200 100 / 100 SandoSTATIN Inj 500 MCG In NS 500.5 / 500.5 1000 / 1000 Inj 500 ML @ 50 MCG/HR 50.05 mls/hr IV.CONT .Q10H [facility] Rx#: [id number] Protonix Inj 80 MG In NS Inj 100 / 100 100 / 100 100 / 100 100 ML @ 10 mls/hr IV.CONT CONT [facility] Rx#:[id number] NS Inj 1,000 ML @ 75 mls/hr IV. 1999 1000 / 1000 CONT .[id number] [facility] Rx#:[id number] Rocephin Inj 2,000 MG In NS Inj 200 / 200 100 / 100 100 ML @ 200 mls/hr IV.SIG Q12H [facility] Rx#:[id number] Oral 480 / 480 Output: Urine 1200 / 1200 400 / 400 Stool 0 / 0 0 / 0 Other: Date of Last Bowel Movement 01/11/18 01/11/18 01/11/18 # Incontinent Bowel Movements 0 Result Diagrams: 01/13/18 05:58 01/13/18 05:58 Objective Remarks: GENERAL: 72 year female resting in bed on room air no acute distress with halitosis SKIN: Warm and dry. No rash HEAD: Atraumatic. Normocephalic. EYES: Pupils equal and round. No scleral icterus. No injection or drainage. ENT: No nasal bleeding or discharge. Mucous membranes pink and moist. NECK: Trachea midline. No JVD. CARDIOVASCULAR: Regular rate and rhythm. S1, S2. No S4. RESPIRATORY: No accessory muscle use. Clear to auscultation. Breath sounds equal bilaterally. GASTROINTESTINAL: Abdomen soft, non-tender, nondistended. Hepatic and splenic margins not palpable. MUSCULOSKELETAL: Extremities trace bilateral lower extremity edema. No obvious deformities. NEUROLOGICAL: Awake and alert. No obvious cranial nerve deficits. Motor grossly within normal limits. Five out of 5 muscle strength in the arms and legs. Normal speech. PSYCHIATRIC: Appropriate mood and affect; insight and judgment normal. Assessment and Plan - Assessment and Plan Plan: Neuro/Psych: Insomnia Acetaminophen 650 mg p.o. every 6 hours as needed fever Melatonin 5 mg at night as needed insomnia. Will give diphenhydramine 25 mg in a as needed breakthrough insomnia per patient request Patient states she does not take sertraline 50 mg daily. CV: Lactic acidosis Currently on normal saline at 84 cc an hour Not requiring antihypertensives and/or vasopressors Serial lactates until cleared Resp: Nasal cannula to maintain saturations greater than equal 92% Incentive spirometry while awake Albuterol/ipratropium aerosols every 4 hours with albuterol aerosols every 2 hours as needed for dyspnea GI: Hematemesis Single distal esophageal varix Hiatal hernia Liver cirrhosis History of hepatitis A History of tubular adenoma History of sigmoid diverticulosis Hypoalbuminemia Low total protein Elevated AST Abdominal ascites EGD 01/12 revealed distal esophageal varix. Coffee-ground. Food bolus. No overt bleeding. Plan for colonoscopy 01/13 Continue pantoprazole drip at 8 mg/h and octreotide drip at 50 mcg an hour N.p.o. status currently. Advance diet per GI Holding furosemide 80 mg daily and spironolactone 200 mg daily. Resume when clinically indicated : No indication for Stout catheter Endo: aCute hyperglycemia Sliding scale insulin with novulin r with every 6 Accu-Cheks to maintain euglycemia Renal: Creatinine currently within normal limits Heme: Acute blood loss anemia/macrocytic History of thrombocytopenia We will transfuse one PRBC now. Recheck hemoglobin at 1800 hrs. and in a.m. ID: Patient states she is currently not on valacyclovir or amantadine Monitor for signs and since hematology infection Continue ceftriaxone 1 g daily prophylaxis daily 7 days currently day #2 FEN: Replace electrolytes as clinically indicated MSK: Access -Utilize peripheral IV. Central line if indicated Prophylaxis -GI -pantoprazole drip. -DVT -SCD/pharmacological prophylaxis contraindicated with acute bleeding Level 3 follow-up
[2018-01-13] MEDS ORDERED: Lidocaine PF 1% Inj 5 ML Syringe INFILTRATN ONE (12:00)
--- NOTE | 2018-01-13 13:00 | GIPROC ---
[facility] [address] [facility]. 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 TOPICAL ANESTHETIC: CONSENT: The patient understands the risks and benefits of the procedure and understands that these risks include, but are not limited to: sedation, allergic reaction, infection, perforation and/or bleeding. Alternative means of evaluation and treatment include, among others: physical exam, x-rays, and/or surgical intervention. The patient elects to proceed with this endoscopic procedure. medical equipment was checked for proper function. Hand hygiene and appropriate measures for infection prevention was taken. After the risks, benefits and alternatives of the procedure were thoroughly explained, Informed consent was verified, confirmed and timeout was successfully executed by the treatment team. The patient was anesthetized with topical anesthesia and the Pentax EG-[id number] endoscope was introduced through the mouth and advanced to the second portion of the duodenum. Retroflexed views revealed no abnormalities The gastroscope was then slowly withdrawn and removed. ESOPHAGUS: There were 2 columns of small varices in the distal esophagus. There was evidence of prior scarring. STOMACH: There was erythematous moderate gastritis in the gastric antrum. A biopsy was performed using cold forceps. Sample sent for histology. Moderate portal hypertensive gastropathy was found in the gastric antrum and gastric fundus. DUODENUM: The duodenal mucosa appeared normal in the bulb and second portion of the duodenum. ADVERSE EVENTS: There were no complications. IMPRESSIONS: 1. There was erythematous gastritis in the gastric antrum; biopsy was performed 2. Portal hypertensive gastropathy was found in the gastric antrum and gastric fundus 3. Normal duodenal mucosa in the bulb and second portion of the duodenum 4. Retroflexed views revealed no abnormalities RECOMMENDATIONS: 1. Await biopsy results. Biopsy results will not be ready for 7-10 days. If you don't hear from us in two weeks, call our office for biopsy results. 2. Continue PPI 3. Avoid NSAIDS 4. Colonoscopy if H/H drops further PATIENT CONDITION: stable DISPOSITION: Inpatient REPEAT EXAM: Return 6 months EGD pending biopsy results Sabino Fuchs MD eSigned: Sabino Fuchs MD 01/13/2018 12:59 PM cc: PATIENT NAME: Court Pierce MR#: [id number]
[2018-01-13 20:55] LABS: Hematocrit 26.8 % (35.0-46.0); Hemoglobin 9.1 gm/dL (11.6-15.3); Mean Corpuscular HGB Conc 34.1 % (32.0-36.0); Mean Corpuscular Volume 99.6 fL (80.0-100.0); Mean Platelet Volume 7.8 fL (7.0-11.0); Platelet Count 84 th/mm3 (150-450); Red Blood Count 2.69 mil/mm3 (4.00-5.30); Red Cell Distribution Width 17.9 % (11.6-17.2); White Blood Count 8.2 th/mm3 (4.0-11.0)
[2018-01-13] MEDS ORDERED: Non-Formulary Drug (Valacyclovir [Valacyclovir] 1,000 MG) PO SCH (21:00)
[2018-01-13] MEDS ORDERED: AMANTADINE HCL 100 MG PO SCH (21:00)
[2018-01-14] MEDS: Insulin NovoLIN Regular Correctional Sugar Inj SQ SCH ×4 (00:36→18:15)
[2018-01-14] MEDS: Octreotide Inj 500 MCG in Sodium Chlor 0.9% Inj 500 ML IV.CONT SCH ×2 (03:54→15:05)
[2018-01-14] MEDS: Chlorhexidine Gluconate 2% 1 Pack (2 Cloths) TOPICAL SCH (03:56)
[2018-01-14] MEDS: Sod Chloride 0.9% Inj 1,000 ML IV.CONT SCH ×2 (06:24→19:59)
--- NOTE | 2018-01-14 07:14 | P.PNCC ---
Subjective Subjective Remarks/Hospital Course: 72-year-old woman with a history of liver cirrhosis presents complaining of hematemesis and melena. She has had 2 episodes of GI bleed in the past. This was attributed to gastric ulcers at the time, but she has been following up with [place] for variceal bleeding. She was feeling well until earlier today when she has noted melanotic stool and started having vomiting of dark coffee-ground emesis. Some mild abdominal pain radiating into the her back accompanying this. Symptoms been worsening since onset. No other aggravating or alleviating factors. No other complaints. Subjective 01/13: Patient complaining of headache, intermittent chest pain, abdominal pain and insomnia. Notified of small varix esophagus overnight with old blood/coffee -ground. No acute signs of bleeding. Plan for colonoscopy today. 01/14 No events overnight. On Protonix and Octreotide drips. Afebrile. Objective Vital Signs / I&O: Vital Signs 01/13/18 08:00 01/13/18 09:00 01/13/18 10:22 Temperature 98.5 F Pulse Rate 92 H 95 H Respiratory Rate 25 H Blood Pressure 92/54 L Pulse Oximetry 95 97 01/13/18 11:23 01/13/18 12:47 01/13/18 12:51 Temperature 97.8 F Pulse Rate 89 85 Respiratory Rate 22 Blood Pressure 102/53 L 111/55 L 108/55 L Pulse Oximetry 97 96 01/13/18 12:54 01/13/18 12:57 01/13/18 13:00 Temperature Pulse Rate 86 86 84 Respiratory Rate Blood Pressure 105/55 L 94/46 L 111/51 L Pulse Oximetry 97 100 100 01/13/18 13:08 01/13/18 13:12 01/13/18 13:15 Temperature Pulse Rate 85 84 83 Respiratory Rate 16 18 Blood Pressure 102/50 L 93/51 L 97/49 L Pulse Oximetry 94 L 100 99 01/13/18 13:18 01/13/18 13:21 01/13/18 13:24 Temperature Pulse Rate 85 83 81 Respiratory Rate 21 18 21 Blood Pressure 104/51 L 98/52 L 95/49 L Pulse Oximetry 98 100 100 01/13/18 13:27 01/13/18 13:30 01/13/18 13:40 Temperature Pulse Rate 81 79 83 Respiratory Rate 21 19 22 Blood Pressure 95/49 L 99/50 L 98/53 L Pulse Oximetry 100 100 100 01/13/18 13:42 01/13/18 13:45 01/13/18 13:48 Temperature Pulse Rate 82 85 82 Respiratory Rate 20 20 17 Blood Pressure 107/53 L 100/56 L 103/55 L Pulse Oximetry 100 100 100 01/13/18 13:51 01/13/18 13:54 01/13/18 13:57 Temperature Pulse Rate 85 83 83 Respiratory Rate 22 20 20 Blood Pressure 100/57 L 97/53 L 97/55 L Pulse Oximetry 100 100 100 01/13/18 14:00 01/13/18 14:10 01/13/18 14:12 Temperature 98.5 F Pulse Rate 85 85 87 Respiratory Rate 23 20 23 Blood Pressure 108/53 L 108/53 L Pulse Oximetry 100 100 100 01/13/18 14:16 01/13/18 14:25 01/13/18 14:28 Temperature 98.0 F Pulse Rate 91 H 86 86 Respiratory Rate 27 H 22 24 Blood Pressure 108/53 L 104/54 L 104/54 L Pulse Oximetry 100 100 01/13/18 15:00 01/13/18 16:00 01/13/18 16:15 Temperature 99.0 F Pulse Rate 86 88 86 Respiratory Rate 21 24 26 H Blood Pressure 96/46 L 98/53 L Pulse Oximetry 100 100 01/13/18 19:00 01/13/18 20:00 01/13/18 20:26 Temperature 98.5 F Pulse Rate 91 H 90 Respiratory Rate 24 16 Blood Pressure 113/54 L Pulse Oximetry 100 100 01/14/18 00:00 01/14/18 04:00 Temperature 98.7 F 98.6 F Pulse Rate 91 H 82 Respiratory Rate 20 20 Blood Pressure 98/52 L 101/51 L Pulse Oximetry 100 98 Intake & Output 01/13/18 01/14/18 01/14/18 18:59 06:59 18:59 Intake Total 2730 / 2730 1800 / 1800 Output Total 925 / 925 800 / 800 Balance 1805 / 1805 1000 / 1000 Intake: IV 1800 / 1800 1500 / 1500 SandoSTATIN Inj 500 MCG In NS 500 / 500 500 / 500 Inj 500 ML @ 50 MCG/HR 50.05 mls/hr IV.CONT .Q10H [facility] Rx#: [id number] Protonix Inj 80 MG In NS Inj 200 / 200 100 ML @ 10 mls/hr IV.CONT CONT [facility] Rx#:[id number] NS Inj 1,000 ML @ 75 mls/hr IV. 1000 / 1000 1000 / 1000 CONT .[id number] [facility] Rx#:[id number] Rocephin Inj 1,000 MG In NS Inj 100 / 100 100 ML @ 200 mls/hr IV.SIG Q24H [facility] Rx#:[id number] Oral 480 / 480 300 / 300 Anesthesia Amount 50 / 50 Intake (Blood Product) Amt 400 / 400 Rbc As-3 Leukoreduced Unit 400 / 400 [id number] Output: Urine 925 / 925 800 / 800 Stool 0 / 0 0 / 0 Other: Date of Last Bowel Movement 01/11/18 01/11/18 # Bowel Movements 0 # Incontinent Bowel Movements 0 Result Diagrams: 01/14/18 06:58 01/14/18 06:58 Other Results: Laboratory Results - last 12 hr 01/13/18 01/14/18 01/14/18 20:21 00:32 06:19 WBC 8.2 RBC 2.69 L Hgb 9.1 L Hct 26.8 L MCV 99.6 D MCH 34.0 MCHC 34.1 RDW 17.9 H D Plt Count 84 L MPV 7.8 POC Glucose 153 H 145 H Objective Remarks: GENERAL: 72 year female resting in bed on room air no acute distress with halitosis SKIN: Warm and dry. No rash HEAD: Atraumatic. Normocephalic. EYES: Pupils equal and round. No scleral icterus. No injection or drainage. ENT: No nasal bleeding or discharge. Mucous membranes pink and moist. NECK: Trachea midline. No JVD. CARDIOVASCULAR: Regular rate and rhythm. S1, S2. No S4. RESPIRATORY: No accessory muscle use. Clear to auscultation. Breath sounds equal bilaterally. GASTROINTESTINAL: Mild tenderness on palpation, distended MUSCULOSKELETAL: Extremities trace bilateral lower extremity edema. No obvious deformities. NEUROLOGICAL: Awake and alert. No obvious cranial nerve deficits. Motor grossly within normal limits. Five out of 5 muscle strength in the arms and legs. Normal speech. PSYCHIATRIC: Appropriate mood and affect; insight and judgment normal. Assessment and Plan - Assessment and Plan Plan: Neuro/Psych: Insomnia Acetaminophen 650 mg p.o. every 6 hours as needed fever Melatonin 5 mg at night as needed insomnia. diphenhydramine 25 mg in a as needed breakthrough insomnia per patient request CV: Mild Lactic acidosis Currently on normal saline at 84 cc an hour Monitor HR and BP keep MAP>65mmHg Serial lactates until cleared Resp: Continue with oxygen keep sats > 92% Incentive spirometry while awake Albuterol/ipratropium aerosols every 4 hours with albuterol aerosols every 2 hours as needed for dyspnea GI: Hematemesis Single distal esophageal varix Hiatal hernia Liver cirrhosis History of hepatitis A History of tubular adenoma History of sigmoid diverticulosis Hypoalbuminemia Low total protein Elevated AST Abdominal ascites EGD 01/12 revealed distal esophageal varix. Coffee-ground. Food bolus. No overt bleeding. Repeat EGD 01/13: There was erythematous gastritis in the gastric antrum; Portal hypertensive gastropathy was found in the gastric antrum and gastric fundus Normal duodenal mucosa in the bulb and second portion of the duodenum Continue pantoprazole drip at 8 mg/h and octreotide drip at 50 mcg an hour N.p.o. status currently. Holding furosemide 80 mg daily and spironolactone 200 mg daily. Resume when clinically indicated Place NGT to LIWS, check CT abd/pelvis : No indication for Stout catheter Monitor renal function, electrolytes replacement per protocol. Endo: aCute hyperglycemia Sliding scale insulin with novulin r with every 6 Accu-Cheks to maintain euglycemia Heme: Acute blood loss anemia/macrocytic History of thrombocytopenia Monitor CBC s/p transfusion 1u PRBC 01/13 ID: Patient states she is currently not on valacyclovir or amantadine Monitor for signs of infection Continue ceftriaxone 1 g daily prophylaxis daily 7 days MSK: Access -Utilize peripheral IV. Central line if indicated Prophylaxis -GI -pantoprazole drip. -DVT -SCD/pharmacological prophylaxis contraindicated with acute bleeding Level 2 follow-up Follow up on labs
[2018-01-14 07:16] LABS: Baso % (Auto) 0.3 % (0.0-2.0); Eos # (Auto) 0.1 th/mm3 (0.0-0.4); Eos % (Auto) 1.5 % (0.0-4.0); Hematocrit 23.7 % (35.0-46.0); Hemoglobin 8.2 gm/dL (11.6-15.3); Lymph # (Auto) 1.7 th/mm3 (1.0-4.8); Lymph % (Auto) 29.3 % (9.0-44.0); Mean Corpuscular HGB Conc 34.6 % (32.0-36.0); Mean Corpuscular Hemoglobin 34.5 pg (27.0-34.0); Mean Corpuscular Volume 99.9 fL (80.0-100.0); Mean Platelet Volume 7.2 fL (7.0-11.0); Mono # (Auto) 0.6 th/mm3 (0.0-0.9); Neut # (Auto) 3.3 th/mm3 (1.8-7.7); Neut % (Auto) 57.9 % (16.0-70.0); Platelet Count 63 th/mm3 (150-450); Red Blood Count 2.38 mil/mm3 (4.00-5.30); Red Cell Distribution Width 18.1 % (11.6-17.2); White Blood Count 5.7 th/mm3 (4.0-11.0)
[2018-01-14 07:27] LABS: Activated Partial Thrombo Time 24.7 sec (24.3-30.1); INR 1.3 Ratio; Prothrombin Time 13.2 sec (9.8-11.6)
[2018-01-14 07:52] LABS: Alanine Aminotransferase 45 U/L (10-53); Albumin 2.5 g/dL (3.4-5.0); Alkaline Phosphatase 87 U/L (45-117); Anion Gap 9 meq/L (5-15); Aspartate Aminotransferase 46 U/L (15-37); Blood Urea Nitrogen 24 mg/dL (7-18); Calcium 7.5 mg/dL (8.5-10.1); Carbon Dioxide 20.1 meq/L (21.0-32.0); Chloride 112 meq/L (98-107); Glomerular Filtration Rate 84 mL/min (>89); Glucose,Random 123 mg/dL (74-106); Magnesium 1.8 mg/dL (1.5-2.5); Phosphorus 2.3 mg/dL (2.5-4.9); Potassium 3.7 meq/L (3.5-5.1); Sodium 141 meq/L (136-145); Total Protein 5.5 g/dL (6.4-8.2)
[2018-01-14 08:40] LABS: Acanthocytes Occ; Platelet Morphology Normal (Normal)
[2018-01-14] MEDS ORDERED: Sertraline 50 MG Tablet PO SCH (09:00)
[2018-01-14] MEDS: Senna/Docusate Sodium 8.6/50 MG Tablet PO SCH ×2 (09:12→19:59)
[2018-01-14] MEDS: Pantoprazole Inj 80 MG in Sodium Chlor 0.9% Inj 100 ML IV.CONT SCH ×2 (09:16→22:03)
--- NOTE | 2018-01-14 10:34 | P.PNGI ---
Subjective Interval history: Pt sitting up in bed, appears to be in mild distress. Complaining of a pain in her stomach and chest that radiates into her ear. Denies nausea and vomiting, was able to tolerate breakfast this morning. Unsure when the last time she passed gas was, has not had a BM since admission. <Thais Shipman - Last Filed: 01/14/18 10:27> Physical Exam Vital signs: Vital Signs 01/13/18 11:23 01/13/18 12:47 01/13/18 12:51 Temperature 97.8 F Pulse Rate 89 85 Respiratory Rate 22 Blood Pressure 102/53 L 111/55 L 108/55 L Pulse Oximetry 97 96 01/13/18 12:54 01/13/18 12:57 01/13/18 13:00 Temperature Pulse Rate 86 86 84 Respiratory Rate Blood Pressure 105/55 L 94/46 L 111/51 L Pulse Oximetry 97 100 100 01/13/18 13:08 01/13/18 13:12 01/13/18 13:15 Temperature Pulse Rate 85 84 83 Respiratory Rate 16 18 Blood Pressure 102/50 L 93/51 L 97/49 L Pulse Oximetry 94 L 100 99 01/13/18 13:18 01/13/18 13:21 01/13/18 13:24 Temperature Pulse Rate 85 83 81 Respiratory Rate 21 18 21 Blood Pressure 104/51 L 98/52 L 95/49 L Pulse Oximetry 98 100 100 01/13/18 13:27 01/13/18 13:30 01/13/18 13:40 Temperature Pulse Rate 81 79 83 Respiratory Rate 21 19 22 Blood Pressure 95/49 L 99/50 L 98/53 L Pulse Oximetry 100 100 100 01/13/18 13:42 01/13/18 13:45 01/13/18 13:48 Temperature Pulse Rate 82 85 82 Respiratory Rate 20 20 17 Blood Pressure 107/53 L 100/56 L 103/55 L Pulse Oximetry 100 100 100 01/13/18 13:51 01/13/18 13:54 01/13/18 13:57 Temperature Pulse Rate 85 83 83 Respiratory Rate 22 20 20 Blood Pressure 100/57 L 97/53 L 97/55 L Pulse Oximetry 100 100 100 01/13/18 14:00 01/13/18 14:10 01/13/18 14:12 Temperature 98.5 F Pulse Rate 85 85 87 Respiratory Rate 23 20 23 Blood Pressure 108/53 L 108/53 L Pulse Oximetry 100 100 100 01/13/18 14:16 01/13/18 14:25 01/13/18 14:28 Temperature 98.0 F Pulse Rate 91 H 86 86 Respiratory Rate 27 H 22 24 Blood Pressure 108/53 L 104/54 L 104/54 L Pulse Oximetry 100 100 01/13/18 15:00 01/13/18 16:00 01/13/18 16:15 Temperature 99.0 F Pulse Rate 86 88 86 Respiratory Rate 21 24 26 H Blood Pressure 96/46 L 98/53 L Pulse Oximetry 100 100 01/13/18 19:00 01/13/18 20:00 01/13/18 20:26 Temperature 98.5 F Pulse Rate 91 H 90 Respiratory Rate 24 16 Blood Pressure 113/54 L Pulse Oximetry 100 100 01/14/18 00:00 01/14/18 04:00 01/14/18 07:00 Temperature 98.7 F 98.6 F Pulse Rate 91 H 82 Respiratory Rate 20 20 Blood Pressure 98/52 L 101/51 L Pulse Oximetry 100 98 100 01/14/18 08:00 01/14/18 09:00 Temperature Pulse Rate 80 80 Respiratory Rate Blood Pressure Pulse Oximetry 98 Intake & Output 01/13/18 01/14/18 01/14/18 18:59 06:59 18:59 Intake Total 2730 / 2730 1800 / 1800 100 / 100 Output Total 925 / 925 800 / 800 Balance 1805 / 1805 1000 / 1000 100 / 100 Intake: IV 1800 / 1800 1500 / 1500 100 / 100 SandoSTATIN Inj 500 MCG In NS 500 / 500 500 / 500 Inj 500 ML @ 50 MCG/HR 50.05 mls/hr IV.CONT .Q10H [facility] Rx#: [id number] Protonix Inj 80 MG In NS Inj 200 / 200 100 / 100 100 ML @ 10 mls/hr IV.CONT CONT [facility] Rx#:[id number] NS Inj 1,000 ML @ 75 mls/hr IV. 1000 / 1000 1000 / 1000 CONT .[id number] [facility] Rx#:[id number] Rocephin Inj 1,000 MG In NS Inj 100 / 100 100 ML @ 200 mls/hr IV.SIG Q24H [facility] Rx#:[id number] Oral 480 / 480 300 / 300 Anesthesia Amount 50 / 50 Intake (Blood Product) Amt 400 / 400 Rbc As-3 Leukoreduced Unit 400 / 400 [id number] Output: Urine 925 / 925 800 / 800 Stool 0 / 0 0 / 0 Other: Date of Last Bowel Movement 01/11/18 01/11/18 01/11/18 # Bowel Movements 0 # Incontinent Bowel Movements 0 - Constitutional mild distress - Routine HEENT Exam Head: Present: normocephalic, atraumatic - Routine Respiratory Exam Comments: tachypneic - Routine Abdominal Exam Present: soft, normoactive bowel sounds, distended. Absent: tenderness - Routine Skin Exam Present: dry, warm - Routine Neurological Exam Present: alert, oriented X3 <Thais Shipman - Last Filed: 01/14/18 10:27> Vital signs: Vital Signs 01/13/18 16:00 01/13/18 16:15 01/13/18 19:00 Temperature 99.0 F Pulse Rate 88 86 Respiratory Rate 24 26 H Blood Pressure 98/53 L Pulse Oximetry 100 100 01/13/18 20:00 01/13/18 20:26 01/14/18 00:00 Temperature 98.5 F 98.7 F Pulse Rate 91 H 90 91 H Respiratory Rate 24 16 20 Blood Pressure 113/54 L 98/52 L Pulse Oximetry 100 100 01/14/18 04:00 01/14/18 07:00 01/14/18 08:00 Temperature 98.6 F 98.4 F Pulse Rate 82 80 Respiratory Rate 20 15 Blood Pressure 101/51 L 105/55 L Pulse Oximetry 98 100 100 01/14/18 09:00 Temperature Pulse Rate 80 Respiratory Rate Blood Pressure Pulse Oximetry Intake & Output 01/13/18 01/14/18 01/14/18 18:59 06:59 18:59 Intake Total 2730 / 2730 1800 / 1800 600 / 600 Output Total 925 / 925 800 / 800 Balance 1805 / 1805 1000 / 1000 600 / 600 Intake: IV 1800 / 1800 1500 / 1500 600 / 600 SandoSTATIN Inj 500 MCG In NS 500 / 500 500 / 500 500 / 500 Inj 500 ML @ 50 MCG/HR 50.05 mls/hr IV.CONT .Q10H [facility] Rx#: [id number] Protonix Inj 80 MG In NS Inj 200 / 200 100 / 100 100 ML @ 10 mls/hr IV.CONT CONT [facility] Rx#:[id number] NS Inj 1,000 ML @ 75 mls/hr IV. 1000 / 1000 1000 / 1000 CONT .[id number] [facility] Rx#:[id number] Rocephin Inj 1,000 MG In NS Inj 100 / 100 100 ML @ 200 mls/hr IV.SIG Q24H [facility] Rx#:[id number] Oral 480 / 480 300 / 300 Anesthesia Amount 50 / 50 Intake (Blood Product) Amt 400 / 400 Rbc As-3 Leukoreduced Unit 400 / 400 [id number] Output: Urine 925 / 925 800 / 800 Stool 0 / 0 0 / 0 Other: Date of Last Bowel Movement 01/11/18 01/11/18 01/11/18 # Bowel Movements 0 # Incontinent Bowel Movements 0 <Sabino Fuchs - Last Filed: 01/14/18 15:24> Results - Labs CBC & Chem 7: 01/14/18 06:58 01/14/18 06:58 Laboratory Results - last 24 hr 01/11/18 01/13/18 01/13/18 23:40 17:30 20:21 WBC 8.2 RBC 2.69 L Hgb 9.1 L Hct 26.8 L MCV 99.6 D MCH 34.0 MCHC 34.1 RDW 17.9 H D Plt Count 84 L MPV 7.8 Prelim Diff (Auto) Neut % (Auto) Lymph % (Auto) [place] % (Auto) Eos % (Auto) Baso % (Auto) Neut # (Auto) Lymph # (Auto) [place] # (Auto) Eos # (Auto) Baso # (Auto) WBC Differential Diff Scan Differential Comment Platelet Estimate Platelet Morphology Polychromasia Acanthocytes (Spur) PT INR APTT Sodium Potassium Chloride Carbon Dioxide Anion Gap BUN Creatinine Estimated GFR POC Glucose 124 H Random Glucose Lactic Acid Calcium Phosphorus Magnesium Total Bilirubin AST ALT Alkaline Phosphatase Ammonia Total Protein Albumin Blood Type O Positive Blood Type Recheck Required Antibody Screen Negative MTS Gel Crossmatch See Detail 01/14/18 01/14/18 01/14/18 00:32 06:19 06:58 WBC 5.7 RBC 2.38 L Hgb 8.2 L Hct 23.7 L MCV 99.9 MCH 34.5 H MCHC 34.6 RDW 18.1 H Plt Count 63 L MPV 7.2 Prelim Diff (Auto) Slide review pending Neut % (Auto) 57.9 Lymph % (Auto) 29.3 [place] % (Auto) 11.0 H Eos % (Auto) 1.5 Baso % (Auto) 0.3 Neut # (Auto) 3.3 Lymph # (Auto) 1.7 [place] # (Auto) 0.6 Eos # (Auto) 0.1 Baso # (Auto) 0.0 WBC Differential . Diff Scan Auto diff confirmed Differential Comment . Platelet Estimate Low L Platelet Morphology Normal Polychromasia 2.0 H Acanthocytes (Spur) Occ H PT INR APTT Sodium Potassium Chloride Carbon Dioxide Anion Gap BUN Creatinine Estimated GFR POC Glucose 153 H 145 H Random Glucose Lactic Acid Calcium Phosphorus Magnesium Total Bilirubin AST ALT Alkaline Phosphatase Ammonia Total Protein Albumin Blood Type Blood Type Recheck Antibody Screen MTS Gel Crossmatch 01/14/18 01/14/18 01/14/18 06:58 06:58 06:58 WBC RBC Hgb Hct MCV MCH MCHC RDW Plt Count MPV Prelim Diff (Auto) Neut % (Auto) Lymph % (Auto) [place] % (Auto) Eos % (Auto) Baso % (Auto) Neut # (Auto) Lymph # (Auto) [place] # (Auto) Eos # (Auto) Baso # (Auto) WBC Differential Diff Scan Differential Comment Platelet Estimate Platelet Morphology Polychromasia Acanthocytes (Spur) PT 13.2 H INR 1.3 APTT 24.7 Sodium 141 Potassium 3.7 Chloride 112 H Carbon Dioxide 20.1 L Anion Gap 9 BUN 24 H Creatinine 0.69 Estimated GFR 84 L POC Glucose Random Glucose 123 H Lactic Acid Calcium 7.5 L Phosphorus 2.3 L Magnesium 1.8 Total Bilirubin 0.7 AST 46 H ALT 45 Alkaline Phosphatase 87 Ammonia 36 H Total Protein 5.5 L D Albumin 2.5 L Blood Type Blood Type Recheck Antibody Screen MTS Gel Crossmatch 01/14/18 06:58 WBC RBC Hgb Hct MCV MCH MCHC RDW Plt Count MPV Prelim Diff (Auto) Neut % (Auto) Lymph % (Auto) [place] % (Auto) Eos % (Auto) Baso % (Auto) Neut # (Auto) Lymph # (Auto) [place] # (Auto) Eos # (Auto) Baso # (Auto) WBC Differential Diff Scan Differential Comment Platelet Estimate Platelet Morphology Polychromasia Acanthocytes (Spur) PT INR APTT Sodium Potassium Chloride Carbon Dioxide Anion Gap BUN Creatinine Estimated GFR POC Glucose Random Glucose Lactic Acid 1.6 Calcium Phosphorus Magnesium Total Bilirubin AST ALT Alkaline Phosphatase Ammonia Total Protein Albumin Blood Type Blood Type Recheck Antibody Screen MTS Gel Crossmatch <Thais Shipman - Last Filed: 01/14/18 10:27> - Labs CBC & Chem 7: 01/14/18 13:28 01/14/18 06:58 Laboratory Results - last 24 hr 01/11/18 01/13/18 01/13/18 23:40 17:30 20:21 WBC 8.2 RBC 2.69 L Hgb 9.1 L Hct 26.8 L MCV 99.6 D MCH 34.0 MCHC 34.1 RDW 17.9 H D Plt Count 84 L MPV 7.8 Prelim Diff (Auto) Neut % (Auto) Lymph % (Auto) [place] % (Auto) Eos % (Auto) Baso % (Auto) Neut # (Auto) Lymph # (Auto) [place] # (Auto) Eos # (Auto) Baso # (Auto) WBC Differential Diff Scan Differential Comment Platelet Estimate Platelet Morphology Polychromasia Acanthocytes (Spur) PT INR APTT Sodium Potassium Chloride Carbon Dioxide Anion Gap BUN Creatinine Estimated GFR POC Glucose 124 H Random Glucose Lactic Acid Calcium Phosphorus Magnesium Total Bilirubin AST ALT Alkaline Phosphatase Ammonia Total Protein Albumin MTS Gel Crossmatch See Detail 01/14/18 01/14/18 01/14/18 00:32 06:19 06:58 WBC 5.7 RBC 2.38 L Hgb 8.2 L Hct 23.7 L MCV 99.9 MCH 34.5 H MCHC 34.6 RDW 18.1 H Plt Count 63 L MPV 7.2 Prelim Diff (Auto) Slide review pending Neut % (Auto) 57.9 Lymph % (Auto) 29.3 [place] % (Auto) 11.0 H Eos % (Auto) 1.5 Baso % (Auto) 0.3 Neut # (Auto) 3.3 Lymph # (Auto) 1.7 [place] # (Auto) 0.6 Eos # (Auto) 0.1 Baso # (Auto) 0.0 WBC Differential . Diff Scan Auto diff confirmed Differential Comment . Platelet Estimate Low L Platelet Morphology Normal Polychromasia 2.0 H Acanthocytes (Spur) Occ H PT INR APTT Sodium Potassium Chloride Carbon Dioxide Anion Gap BUN Creatinine Estimated GFR POC Glucose 153 H 145 H Random Glucose Lactic Acid Calcium Phosphorus Magnesium Total Bilirubin AST ALT Alkaline Phosphatase Ammonia Total Protein Albumin MTS Gel Crossmatch 01/14/18 01/14/18 01/14/18 06:58 06:58 06:58 WBC RBC Hgb Hct MCV MCH MCHC RDW Plt Count MPV Prelim Diff (Auto) Neut % (Auto) Lymph % (Auto) [place] % (Auto) Eos % (Auto) Baso % (Auto) Neut # (Auto) Lymph # (Auto) [place] # (Auto) Eos # (Auto) Baso # (Auto) WBC Differential Diff Scan Differential Comment Platelet Estimate Platelet Morphology Polychromasia Acanthocytes (Spur) PT 13.2 H INR 1.3 APTT 24.7 Sodium 141 Potassium 3.7 Chloride 112 H Carbon Dioxide 20.1 L Anion Gap 9 BUN 24 H Creatinine 0.69 Estimated GFR 84 L POC Glucose Random Glucose 123 H Lactic Acid Calcium 7.5 L Phosphorus 2.3 L Magnesium 1.8 Total Bilirubin 0.7 AST 46 H ALT 45 Alkaline Phosphatase 87 Ammonia 36 H Total Protein 5.5 L D Albumin 2.5 L MTS Gel Crossmatch 01/14/18 01/14/18 01/14/18 06:58 13:28 13:51 WBC RBC Hgb 9.5 L Hct 27.5 L MCV MCH MCHC RDW Plt Count MPV Prelim Diff (Auto) Neut % (Auto) Lymph % (Auto) [place] % (Auto) Eos % (Auto) Baso % (Auto) Neut # (Auto) Lymph # (Auto) [place] # (Auto) Eos # (Auto) Baso # (Auto) WBC Differential Diff Scan Differential Comment Platelet Estimate Platelet Morphology Polychromasia Acanthocytes (Spur) PT INR APTT Sodium Potassium Chloride Carbon Dioxide Anion Gap BUN Creatinine Estimated GFR POC Glucose 145 H Random Glucose Lactic Acid 1.6 Calcium Phosphorus Magnesium Total Bilirubin AST ALT Alkaline Phosphatase Ammonia Total Protein Albumin MTS Gel Crossmatch <Sabino Fuchs - Last Filed: 01/14/18 15:24> Assessment and Plan - Plan Assessment: - GIB Presented to the ER last night with complaints of black, tarry stools and coffee ground emesis. Pt states she began not feeling well yesterday morning, had a gnawing, constant abdominal pain located across the entire middle of her abdomen. States pain was worse when she was about to have BM and relieved some after BMs for a short period of time. She had one episode of hematochezia and then states multiple episodes of melena that began around 10 pm last night. Also began having multiple episodes of coffee ground emesis at that time. EGD done by our service in Mar 2017 --> Gastritis in the antrum and hiatal hernia. Colonoscopy in Feb 2017 --> Hemorrhoids, sigmoid diverticulosis and cecal polyp with pathology revealing tubular adenoma. Of note, pt has been taking Tylenol multiple times a day for back pain since March, states was told by [place] to take Tylenol instead of Ibuprofen. Has not had any ETOH since March. 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 States not a candidate for a liver transplant because she is not sick enough - Thrombocytopenia- secondary to above - platelets 87 (01/14) Pt now S/P EGD x 2- the first one revealed coffee ground material and food bolus so procedure was repeated yesterday which revealed --> There was erythematous gastritis in the gastric antrum; biopsy was performed. Portal hypertensive gastropathy was found in the gastric antrum and gastric fundus. Normal duodenal mucosa in the bulb and second portion of the duodenum. Retroflexed views revealed no abnormalities. Pt appears in mild distress today, complaining of abdominal and chest pain radiating up to her ear. Abdomen is distended, she is unsure when the last time she passed gas was. Last BM was prior to admission. H/H trended down more today. Pt denies nausea, vomiting. Tolerated full liquid breakfast Plan: STAT CT Abdomen and pelvis Colonoscopy tomorrow if above negative Obtain consent Clear liquids today Golytely prep NPO after MN Monitor H/H Further recommendations to follow Pt has been seen and examined by myself and Dr. Fuchs and this note is written on his behalf <Thais Shipman - Last Filed: 01/14/18 10:27> - Plan Seen and examined, more abdominal distension today. STAT CT ordered. ? colonoscopy this week if ct -ve. NG to L.I.S - Attending Attestation The exam, history, and the medical decision-making described in the above note were completed with the assistance of the mid-level provider. I reviewed and agree with the findings presented. I attest that I had a [id number] encounter with the patient on the same day, and personally performed and documented my assessment and findings in the medical record. <Sabino Fuchs - Last Filed: 01/14/18 15:24>
[2018-01-14] MEDS ORDERED: Diatrizoate Meglum/Diatrizoate Sod Liq 9 ML UDC PO SCH (11:45)
[2018-01-14] MEDS: Morphine Sulfate Inj 2 MG/ML Vial IV.PUSH PRN ×4 (11:52→23:27)
[2018-01-14 13:38] LABS: Hematocrit 27.5 % (35.0-46.0); Hemoglobin 9.5 gm/dL (11.6-15.3)
--- NOTE | 2018-01-14 16:07 | CT ---
EXAM DATE: 01/14/2018 3:59 PM EDT AGE/SEX: 72 years / Female INDICATIONS: Abdomen pain and distention CLINICAL DATA: This is the patient's initial encounter. Patient reports that signs and symptoms have been present for 1 day and indicates a pain score of 6/10. MEDICAL/SURGICAL HISTORY: Cirrhosis. Hepatitis A. Hysterectomy. back surgery ORAL CONTRAST: No oral contrast ingested. RADIATION DOSE: 7.77 CTDI (mGy) COMPARISON: No prior exams available for comparison. TECHNIQUE: Multiple contiguous axial images were obtained through the abdomen and pelvis following b olus infusion of 80 ml Omnipaque 350 (iohexol) nonionic water-soluble contrast as a single exam dos e. No oral contrast ingested. Using automated exposure control and adjustment of the mA and/or kV ac cording to patient size, radiation dose was kept as low as reasonably achievable to obtain optimal di agnostic quality images. DICOM format image data is available electronically for review and comparis on. FINDINGS: There is consolidation within the lower lobes, cirrhosis and portal hypertension with cirrhotic appea ring liver, splenomegaly, large volume of ascites. There is scarring at the midpole of the left kidne y with focal parenchymal thinning seen. The pancreas, adrenal glands are unremarkable. NG tube is see n within the stomach. There is gastric wall thickening suspected, and gastric varices are suspected b ut not well evaluated on this study. There are varices in the periesophageal region and gastrohepatic ligament. There is a right inguinal hernia containing peritoneal fluid. There is no evidence of homero l obstruction. There is diverticulosis throughout the colon without definite evidence of diverticulit is. Atherosclerotic calcifications of the aorta and iliac vessels are seen. There are varices seen in the retroperitoneum. Body wall edema. Osseous structures are intact. Postsurgical changes and degen erative changes are noted of the lower lumbar spine. Status post hysterectomy. CONCLUSION: 1. Cirrhosis and portal hypertension with large volume of ascites. 2. Bilateral lower lobe consolidation. Electronically signed by: Montez Carson MD 01/14/2018 4:06 PM EDT
[2018-01-15] MEDS: Insulin NovoLIN Regular Correctional Sugar Inj SQ SCH ×4 (00:49→18:34)
[2018-01-15] MEDS: Octreotide Inj 500 MCG in Sodium Chlor 0.9% Inj 500 ML IV.CONT SCH ×2 (00:50→02:50)
[2018-01-15] MEDS: Morphine Sulfate Inj 2 MG/ML Vial IV.PUSH PRN ×3 (03:39→23:46)
[2018-01-15] MEDS: Chlorhexidine Gluconate 2% 1 Pack (2 Cloths) TOPICAL SCH (03:39)
[2018-01-15 04:44] LABS: Baso % (Auto) 0.4 % (0.0-2.0); Eos # (Auto) 0.1 th/mm3 (0.0-0.4); Eos % (Auto) 2.1 % (0.0-4.0); Hematocrit 25.7 % (35.0-46.0); Hemoglobin 8.9 gm/dL (11.6-15.3); Lymph # (Auto) 1.4 th/mm3 (1.0-4.8); Mean Corpuscular HGB Conc 34.7 % (32.0-36.0); Mean Corpuscular Hemoglobin 34.7 pg (27.0-34.0); Mean Corpuscular Volume 100.2 fL (80.0-100.0); Mean Platelet Volume 7.7 fL (7.0-11.0); Mono # (Auto) 0.7 th/mm3 (0.0-0.9); Mono % (Auto) 12.2 % (0.0-8.0); Neut # (Auto) 3.2 th/mm3 (1.8-7.7); Neut % (Auto) 59.3 % (16.0-70.0); Platelet Count 79 th/mm3 (150-450); Red Blood Count 2.57 mil/mm3 (4.00-5.30); Red Cell Distribution Width 17.7 % (11.6-17.2); White Blood Count 5.5 th/mm3 (4.0-11.0)
[2018-01-15 05:03] LABS: Alanine Aminotransferase 51 U/L (10-53); Albumin 2.6 g/dL (3.4-5.0); Anion Gap 9 meq/L (5-15); Aspartate Aminotransferase 49 U/L (15-37); Blood Urea Nitrogen 17 mg/dL (7-18); Calcium 7.7 mg/dL (8.5-10.1); Carbon Dioxide 20.8 meq/L (21.0-32.0); Chloride 109 meq/L (98-107); Glomerular Filtration Rate Greater Than 89 mL/min (>89); Glucose,Random 114 mg/dL (74-106); Magnesium 1.8 mg/dL (1.5-2.5); Phosphorus 2.3 mg/dL (2.5-4.9); Potassium 3.7 meq/L (3.5-5.1); Sodium 139 meq/L (136-145)
[2018-01-15 05:06] LABS: Alkaline Phosphatase 98 U/L (45-117); Total Protein 5.8 g/dL (6.4-8.2)
[2018-01-15 05:37] LABS: Platelet Morphology Normal (Normal)
[2018-01-15] MEDS ORDERED: Potassium Chloride 25 MEQ Effervescent Tablet PO PRN (07:19)
[2018-01-15] MEDS ORDERED: Magnesium Sulfate Inj 4 GM in Sodium Chlor 0.9% Inj 92 ML IV.SIG PRN (07:19)
[2018-01-15] MEDS ORDERED: Potassium Chlor 40 mEq Premix 40 MEQ/100 ML PIGGYBACK IV.SIG PRN ×2 (07:19)
[2018-01-15] MEDS ORDERED: Potassium Chlor 20 mEq Premix 20 MEQ/100 ML PIGGYBACK IV.SIG PRN ×2 (07:19)
[2018-01-15] MEDS ORDERED: Sodium Phosphate Inj 30 MMOL in Sodium Chlor 0.9% Inj 250 ML IV.SIG PRN (07:19)
[2018-01-15] MEDS ORDERED: Magnesium Oxide 400 MG Tablet PO PRN (07:19)
[2018-01-15] MEDS ORDERED: Magnesium Sulfate Inj 2 GM in Sodium Chlor 0.9% Inj 96 ML IV.SIG PRN (07:19)
[2018-01-15] MEDS ORDERED: Potassium Phosphate 500 MG Soluble Tablet PO PRN (07:19)
[2018-01-15] MEDS ORDERED: Potassium Phosphate Inj 30 MMOL in Sodium Chlor 0.9% Inj 250 ML IV.SIG PRN (07:19)
--- NOTE | 2018-01-15 07:19 | P.PNCC ---
Subjective Subjective Remarks/Hospital Course: 72-year-old woman with a history of liver cirrhosis presents complaining of hematemesis and melena. She has had 2 episodes of GI bleed in the past. This was attributed to gastric ulcers at the time, but she has been following up with [facility] for variceal bleeding. She was feeling well until earlier today when she has noted melanotic stool and started having vomiting of dark coffee-ground emesis. Some mild abdominal pain radiating into the her back accompanying this. Symptoms been worsening since onset. No other aggravating or alleviating factors. No other complaints. Subjective 01/13: Patient complaining of headache, intermittent chest pain, abdominal pain and insomnia. Notified of small varix esophagus overnight with old blood/coffee -ground. No acute signs of bleeding. Plan for colonoscopy today. 01/14 No events overnight. On Protonix and Octreotide drips. Afebrile. 01/15 No events overnight. For Protonix and Octreotide drips. Afebrile. CT abdomen /pelvis showed cirrhosis of liver, portal HTN and ascites. Objective Vital Signs / I&O: Vital Signs 01/14/18 08:00 01/14/18 09:00 01/14/18 10:00 Temperature 98.4 F Pulse Rate 81 76 82 Respiratory Rate 20 14 25 H Blood Pressure 102/51 L 113/55 L 105/55 L Pulse Oximetry 93 L 95 98 01/14/18 11:00 01/14/18 12:00 01/14/18 13:00 Temperature Pulse Rate 81 76 82 Respiratory Rate 24 33 H 20 Blood Pressure 114/58 L 109/59 L 119/63 Pulse Oximetry 97 95 96 01/14/18 14:00 01/14/18 15:00 01/14/18 16:00 Temperature Pulse Rate 81 83 87 Respiratory Rate 23 14 13 Blood Pressure 111/59 L 112/57 L 102/53 L Pulse Oximetry 96 96 95 01/14/18 16:02 01/14/18 17:00 01/14/18 18:00 Temperature Pulse Rate 86 84 85 Respiratory Rate 14 16 18 Blood Pressure 102/53 L 105/59 L 113/59 L Pulse Oximetry 95 93 L 93 L 01/14/18 19:00 01/14/18 20:00 01/14/18 21:00 Temperature 97.6 F Pulse Rate 82 80 81 Respiratory Rate 16 17 20 Blood Pressure 108/55 L 107/57 L Pulse Oximetry 95 97 97 01/14/18 21:01 01/14/18 22:00 01/14/18 23:00 Temperature Pulse Rate 83 81 81 Respiratory Rate 17 18 15 Blood Pressure 126/59 L 109/57 L 111/56 L Pulse Oximetry 97 97 94 L 01/15/18 00:00 01/15/18 01:00 01/15/18 02:00 Temperature 98 F Pulse Rate 79 81 82 Respiratory Rate 13 11 L 22 Blood Pressure 110/56 L 129/60 105/56 L Pulse Oximetry 95 100 99 01/15/18 03:00 01/15/18 04:00 Temperature 98.2 F Pulse Rate 79 80 Respiratory Rate 23 37 H Blood Pressure 122/56 L 117/61 Pulse Oximetry 98 97 Intake & Output 01/14/18 01/15/18 01/15/18 18:59 06:59 18:59 Intake Total 1660 / 1660 2080 / 2080 Output Total 1050 / 1050 600 / 600 Balance 610 / 610 1480 / 1480 Weight 79 kg Intake: IV 700 / 700 1600 / 1600 SandoSTATIN Inj 500 MCG In NS 500 / 500 500 / 500 Inj 500 ML @ 50 MCG/HR 50.05 mls/hr IV.CONT .Q10H [facility] Rx#: [id number] Protonix Inj 80 MG In NS Inj 100 / 100 100 / 100 100 ML @ 10 mls/hr IV.CONT CONT SHARAN Rx#:[id number] NS Inj 1,000 ML @ 75 mls/hr IV. 1000 / 1000 CONT .[id number] SHARAN Rx#:[id number] Rocephin Inj 1,000 MG In NS Inj 100 / 100 100 ML @ 200 mls/hr IV.SIG Q24H SHARAN Rx#:[id number] Oral 960 / 960 480 / 480 Output: Urine 800 / 800 Gastric Drainage 250 / 250 600 / 600 Right Nare Orogastric Tube 250 / 250 600 / 600 Other: # Voids 1 Date of Last Bowel Movement 01/11/18 01/11/18 # Bowel Movements 0 Result Diagrams: 01/15/18 03:30 01/15/18 03:30 Other Results: Abnormal Lab Results 01/11/18 01/14/18 01/14/18 23:40 06:58 06:58 WBC 5.7 RBC 2.38 L Hgb 8.2 L Hct 23.7 L MCV 99.9 MCH 34.5 H MCHC 34.6 RDW 18.1 H Plt Count 63 L MPV 7.2 Prelim Diff (Auto) Slide review pending Neut % (Auto) 57.9 Lymph % (Auto) 29.3 [place] % (Auto) 11.0 H Eos % (Auto) 1.5 Baso % (Auto) 0.3 Neut # (Auto) 3.3 Lymph # (Auto) 1.7 [place] # (Auto) 0.6 Eos # (Auto) 0.1 Baso # (Auto) 0.0 WBC Differential . Diff Scan Auto diff confirmed Differential Comment . Platelet Estimate Low L Platelet Morphology Normal Polychromasia 2.0 H Acanthocytes (Spur) Occ H PT 13.2 H INR 1.3 APTT 24.7 Sodium Potassium Chloride Carbon Dioxide Anion Gap BUN Creatinine Estimated GFR POC Glucose Random Glucose Lactic Acid Calcium Phosphorus Magnesium Total Bilirubin AST ALT Alkaline Phosphatase Ammonia Total Protein Albumin MTS Gel Crossmatch See Detail 01/14/18 01/14/18 01/14/18 06:58 06:58 06:58 WBC RBC Hgb Hct MCV MCH MCHC RDW Plt Count MPV Prelim Diff (Auto) Neut % (Auto) Lymph % (Auto) [place] % (Auto) Eos % (Auto) Baso % (Auto) Neut # (Auto) Lymph # (Auto) [place] # (Auto) Eos # (Auto) Baso # (Auto) WBC Differential Diff Scan Differential Comment Platelet Estimate Platelet Morphology Polychromasia Acanthocytes (Spur) PT INR APTT Sodium 141 Potassium 3.7 Chloride 112 H Carbon Dioxide 20.1 L Anion Gap 9 BUN 24 H Creatinine 0.69 Estimated GFR 84 L POC Glucose Random Glucose 123 H Lactic Acid 1.6 Calcium 7.5 L Phosphorus 2.3 L Magnesium 1.8 Total Bilirubin 0.7 AST 46 H ALT 45 Alkaline Phosphatase 87 Ammonia 36 H Total Protein 5.5 L D Albumin 2.5 L MTS Gel Crossmatch 01/14/18 01/14/18 01/14/18 13:28 13:51 18:02 WBC RBC Hgb 9.5 L Hct 27.5 L MCV MCH MCHC RDW Plt Count MPV Prelim Diff (Auto) Neut % (Auto) Lymph % (Auto) [place] % (Auto) Eos % (Auto) Baso % (Auto) Neut # (Auto) Lymph # (Auto) [place] # (Auto) Eos # (Auto) Baso # (Auto) WBC Differential Diff Scan Differential Comment Platelet Estimate Platelet Morphology Polychromasia Acanthocytes (Spur) PT INR APTT Sodium Potassium Chloride Carbon Dioxide Anion Gap BUN Creatinine Estimated GFR POC Glucose 145 H 127 H Random Glucose Lactic Acid Calcium Phosphorus Magnesium Total Bilirubin AST ALT Alkaline Phosphatase Ammonia Total Protein Albumin MTS Gel Crossmatch 01/15/18 01/15/18 01/15/18 00:06 03:30 03:30 WBC 5.5 RBC 2.57 L Hgb 8.9 L Hct 25.7 L MCV 100.2 H MCH 34.7 H MCHC 34.7 RDW 17.7 H Plt Count 79 L MPV 7.7 Prelim Diff (Auto) Slide review pending Neut % (Auto) 59.3 Lymph % (Auto) 26.0 [place] % (Auto) 12.2 H Eos % (Auto) 2.1 Baso % (Auto) 0.4 Neut # (Auto) 3.2 Lymph # (Auto) 1.4 [place] # (Auto) 0.7 Eos # (Auto) 0.1 Baso # (Auto) 0.0 WBC Differential . Diff Scan Differential Comment . Platelet Estimate Low L Platelet Morphology Normal Polychromasia Acanthocytes (Spur) PT INR APTT Sodium 139 Potassium 3.7 Chloride 109 H Carbon Dioxide 20.8 L Anion Gap 9 BUN 17 Creatinine 0.60 Estimated GFR Greater than 89 POC Glucose 118 H Random Glucose 114 H Lactic Acid Calcium 7.7 L Phosphorus 2.3 L Magnesium 1.8 Total Bilirubin 0.8 AST 49 H ALT 51 Alkaline Phosphatase 98 Ammonia Total Protein 5.8 L Albumin 2.6 L MTS Gel Crossmatch 01/15/18 05:20 WBC RBC Hgb Hct MCV MCH MCHC RDW Plt Count MPV Prelim Diff (Auto) Neut % (Auto) Lymph % (Auto) [place] % (Auto) Eos % (Auto) Baso % (Auto) Neut # (Auto) Lymph # (Auto) [place] # (Auto) Eos # (Auto) Baso # (Auto) WBC Differential Diff Scan Differential Comment Platelet Estimate Platelet Morphology Polychromasia Acanthocytes (Spur) PT INR APTT Sodium Potassium Chloride Carbon Dioxide Anion Gap BUN Creatinine Estimated GFR POC Glucose 126 H Random Glucose Lactic Acid Calcium Phosphorus Magnesium Total Bilirubin AST ALT Alkaline Phosphatase Ammonia Total Protein Albumin MTS Gel Crossmatch Imaging: Abdomen/Pelvis CT 01/14/18 10:31 CONCLUSION: 1. Cirrhosis and portal hypertension with large volume of ascites. 2. Bilateral lower lobe consolidation. Objective Remarks: GENERAL: 72 year female resting in bed on room air no acute distress with halitosis SKIN: Warm and dry. No rash HEAD: Atraumatic. Normocephalic. EYES: Pupils equal and round. No scleral icterus. No injection or drainage. ENT: No nasal bleeding or discharge. Mucous membranes pink and moist. NECK: Trachea midline. No JVD. CARDIOVASCULAR: Regular rate and rhythm. S1, S2. No S4. RESPIRATORY: No accessory muscle use. Clear to auscultation. Breath sounds equal bilaterally. GASTROINTESTINAL: Mild tenderness on palpation, distended MUSCULOSKELETAL: Extremities trace bilateral lower extremity edema. No obvious deformities. NEUROLOGICAL: Awake and alert. No obvious cranial nerve deficits. Motor grossly within normal limits. Five out of 5 muscle strength in the arms and legs. Normal speech. PSYCHIATRIC: Appropriate mood and affect; insight and judgment normal. Assessment and Plan - Assessment and Plan Plan: Neuro/Psych: Insomnia Acetaminophen 650 mg p.o. every 6 hours as needed fever Melatonin 5 mg at night as needed insomnia. diphenhydramine 25 mg in a as needed breakthrough insomnia per patient request CV: Mild Lactic acidosis Monitor HR and BP keep MAP>65mmHg Lactic acid 1.6 Resp: Continue with oxygen keep sats > 92% Incentive spirometry while awake Albuterol/ipratropium aerosols every 4 hours with albuterol aerosols every 2 hours as needed for dyspnea GI: Hematemesis Single distal esophageal varix Hiatal hernia Liver cirrhosis History of hepatitis A History of tubular adenoma History of sigmoid diverticulosis Hypoalbuminemia Low total protein Elevated AST Abdominal ascites EGD 01/12 revealed distal esophageal varix. Coffee-ground. Food bolus. No overt bleeding. Repeat EGD 01/13: There was erythematous gastritis in the gastric antrum; Portal hypertensive gastropathy was found in the gastric antrum and gastric fundus Normal duodenal mucosa in the bulb and second portion of the duodenum Continue pantoprazole drip at 8 mg/h and octreotide drip at 50 mcg an hour NGT to [facility], CT abdomen/pelvis showed cirrhosis of liver, portal HTN and ascites. s/p US guided paracentesis today with removal 4.4L, place on Albumin, follow up fluid analysis/cx : No indication for Stout catheter Monitor renal function, electrolytes replacement per protocol. d/c IVF, diurese with Lasix 40mg x1 Endo: Acute hyperglycemia Sliding scale insulin with novulin r with every 6 Accu-Cheks to maintain euglycemia Heme: Acute blood loss anemia/macrocytic History of thrombocytopenia Monitor CBC s/p transfusion 1u PRBC 01/13 ID: Patient states she is currently not on valacyclovir or amantadine Monitor for signs of infection Continue ceftriaxone 1 g daily prophylaxis daily 7 days MSK: Access -Utilize peripheral IV. Central line if indicated Prophylaxis -GI -pantoprazole drip. -DVT -SCD/pharmacological prophylaxis contraindicated with acute bleeding Level 2 follow-up
[2018-01-15] MEDS ORDERED: Lidocaine PF 1% Inj 10 ML Amp ONE (08:57)
--- NOTE | 2018-01-15 09:33 | US ---
EXAM DATE: 01/15/2018 9:18 AM EDT AGE/SEX: 72 years / Female INDICATIONS: Ascites. CLINICAL DATA: This is the patient's subsequent encounter. Patient reports that signs and symptoms h ave been present for 2 months and indicates a pain score of 0/10. MEDICAL/SURGICAL HISTORY: Cirrhosis. Hepatitis A. Hysterectomy. Total knee replacement, left. Cholecystectomy. Back surgery. COMPARISON: [facility] – [place], CT ABDOMEN & PELVIS W CONTRAST, 01/14/2018. . FLUID: Total volume of 4400 cc of clear, yellow fluid was removed. Fluid was sent to lab for ordered studies . . . TECHNIQUE: Ultrasound guidance for abdominal paracentesis. Paracentesis. The risks, benefits, and alternatives to ultrasound guided paracentesis were explained to the patient in detail including the risk of bleeding and infection. Written and verbal informed consent was obt ained. With the patient on the ultrasound table, ultrasound imaging was used to select the most appropriate approach for paracentesis. Overlying skin was prepped and draped in the usual sterile fashion and wi th a local anesthetic, a dermatotomy was made with an 11 blade scalpel. A 6 Telugu Xpx-[id number]-baimcyam ca theter was introduced into the peritoneal cavity and fluid was collected. Post procedure scanning reveals no hematoma or other complication. The patient tolerated the procedu re well and left the ultrasound suite in stable condition. FINDINGS: Large amount of ascites. CONCLUSION: 1. Uncomplicated ultrasound-guided paracentesis. Electronically signed by: Adan Farooq MD 01/15/2018 9:32 AM EDT
[2018-01-15] MEDS: Albumin Human 5% Inj 250 ML IV.SIG SCH ×2 (10:21→20:03)
[2018-01-15] MEDS: Senna/Docusate Sodium 8.6/50 MG Tablet PO SCH ×2 (10:22→20:04)
[2018-01-15 10:50] LABS: Total Protein,Peritoneal Fluid 0.2 gm/dL
[2018-01-15 10:53] LABS: Neutrophils,Peritoneal Fluid 21 %; RBC,Peritoneal Fluid 74 /mm3 (0-0)
--- NOTE | 2018-01-15 13:24 | P.PNGI ---
Subjective Interval history: Pt sitting up in bed, appears to be more comfortable today. Had CT yesterday which showed large volume ascites, went for paracentesis this morning and had over 4 liters of fluid removed, feeling much better. Denies nausea, vomiting. Tolerating clear liquid and would like diet advanced. No BM in 2 days. Does not want colonoscopy at this time. <Thais Shipman - Last Filed: 01/15/18 13:11> Physical Exam Vital signs: Vital Signs 01/14/18 14:00 01/14/18 15:00 01/14/18 16:00 Temperature Pulse Rate 81 83 87 Respiratory Rate 23 14 13 Blood Pressure 111/59 L 112/57 L 102/53 L Pulse Oximetry 96 96 95 01/14/18 16:02 01/14/18 17:00 01/14/18 18:00 Temperature Pulse Rate 86 84 85 Respiratory Rate 14 16 18 Blood Pressure 102/53 L 105/59 L 113/59 L Pulse Oximetry 95 93 L 93 L 01/14/18 19:00 01/14/18 20:00 01/14/18 21:00 Temperature 97.6 F Pulse Rate 82 80 81 Respiratory Rate 16 17 20 Blood Pressure 108/55 L 107/57 L Pulse Oximetry 95 97 97 01/14/18 21:01 01/14/18 22:00 01/14/18 23:00 Temperature Pulse Rate 83 81 81 Respiratory Rate 17 18 15 Blood Pressure 126/59 L 109/57 L 111/56 L Pulse Oximetry 97 97 94 L 01/15/18 00:00 01/15/18 01:00 01/15/18 02:00 Temperature 98 F Pulse Rate 79 81 82 Respiratory Rate 13 11 L 22 Blood Pressure 110/56 L 129/60 105/56 L Pulse Oximetry 95 100 99 01/15/18 03:00 01/15/18 04:00 01/15/18 07:00 Temperature 98.2 F Pulse Rate 79 80 Respiratory Rate 23 37 H Blood Pressure 122/56 L 117/61 Pulse Oximetry 98 97 100 01/15/18 08:00 01/15/18 08:24 01/15/18 09:15 Temperature 98.9 F Pulse Rate 84 82 86 Respiratory Rate 16 18 16 Blood Pressure 124/66 122/66 Pulse Oximetry 100 96 98 01/15/18 09:32 01/15/18 12:00 Temperature 98.4 F 98.4 F Pulse Rate 90 93 H Respiratory Rate 18 17 Blood Pressure 114/64 125/59 L Pulse Oximetry 97 96 Intake & Output 01/14/18 01/15/18 01/15/18 18:59 06:59 18:59 Intake Total 1660 / 1660 2080 / 2080 Output Total 1050 / 1050 600 / 600 Balance 610 / 610 1480 / 1480 Weight 79 kg Intake: IV 700 / 700 1600 / 1600 SandoSTATIN Inj 500 MCG In NS 500 / 500 500 / 500 Inj 500 ML @ 50 MCG/HR 50.05 mls/hr IV.CONT .Q10H [facility] Rx#: [id number] Protonix Inj 80 MG In NS Inj 100 / 100 100 / 100 100 ML @ 10 mls/hr IV.CONT CONT [facility] Rx#:[id number] NS Inj 1,000 ML @ 75 mls/hr IV. 1000 / 1000 CONT .[id number] [facility] Rx#:[id number] Rocephin Inj 1,000 MG In NS Inj 100 / 100 100 ML @ 200 mls/hr IV.SIG Q24H [facility] Rx#:[id number] Oral 960 / 960 480 / 480 Output: Urine 800 / 800 Gastric Drainage 250 / 250 600 / 600 Right Nare Orogastric Tube 250 / 250 600 / 600 Other: # Voids 1 Date of Last Bowel Movement 01/11/18 01/11/18 01/11/18 # Bowel Movements 0 - Constitutional no acute distress - Routine HEENT Exam Head: Present: normocephalic, atraumatic - Routine Respiratory Exam Absent: accessory muscle use - Routine Abdominal Exam Present: soft, normoactive bowel sounds, distended. Absent: tenderness - Routine Skin Exam Present: dry, warm - Routine Neurological Exam Present: alert, oriented X3 <Thais Shipman - Last Filed: 01/15/18 13:11> Vital signs: Vital Signs 01/14/18 18:00 01/14/18 19:00 01/14/18 20:00 Temperature 97.6 F Pulse Rate 85 82 80 Respiratory Rate 18 16 17 Blood Pressure 113/59 L 108/55 L 107/57 L Pulse Oximetry 93 L 95 97 01/14/18 21:00 01/14/18 21:01 01/14/18 22:00 Temperature Pulse Rate 81 83 81 Respiratory Rate 20 17 18 Blood Pressure 126/59 L 109/57 L Pulse Oximetry 97 97 97 01/14/18 23:00 01/15/18 00:00 01/15/18 01:00 Temperature 98 F Pulse Rate 81 79 81 Respiratory Rate 15 13 11 L Blood Pressure 111/56 L 110/56 L 129/60 Pulse Oximetry 94 L 95 100 01/15/18 02:00 01/15/18 03:00 01/15/18 04:00 Temperature 98.2 F Pulse Rate 82 79 80 Respiratory Rate 22 23 37 H Blood Pressure 105/56 L 122/56 L 117/61 Pulse Oximetry 99 98 97 01/15/18 07:00 01/15/18 08:00 01/15/18 08:24 Temperature 98.9 F Pulse Rate 84 82 Respiratory Rate 16 18 Blood Pressure 124/66 Pulse Oximetry 100 100 96 01/15/18 09:15 01/15/18 09:32 01/15/18 12:00 Temperature 98.4 F 98.4 F Pulse Rate 86 90 93 H Respiratory Rate 16 18 17 Blood Pressure 122/66 114/64 125/59 L Pulse Oximetry 98 97 96 01/15/18 16:00 Temperature Pulse Rate 96 H Respiratory Rate 15 Blood Pressure 105/58 L Pulse Oximetry 97 Intake & Output 01/14/18 01/15/18 01/15/18 18:59 06:59 18:59 Intake Total 1660 / 1660 2080 / 2080 250 / 250 Output Total 1050 / 1050 600 / 600 Balance 610 / 610 1480 / 1480 250 / 250 Weight 79 kg Intake: IV 700 / 700 1600 / 1600 250 / 250 SandoSTATIN Inj 500 MCG In NS 500 / 500 500 / 500 Inj 500 ML @ 50 MCG/HR 50.05 mls/hr IV.CONT .Q10H [facility] Rx#: [id number] Protonix Inj 80 MG In NS Inj 100 / 100 100 / 100 100 ML @ 10 mls/hr IV.CONT CONT [facility] Rx#:[id number] NS Inj 1,000 ML @ 75 mls/hr IV. 1000 / 1000 CONT .[id number] [facility] Rx#:[id number] Buminate 5% Inj 250 ML @ 250 250 / 250 mls/hr IV.SIG Q12H [facility] Rx#: [id number] Rocephin Inj 1,000 MG In NS Inj 100 / 100 100 ML @ 200 mls/hr IV.SIG Q24H [facility] Rx#:[id number] Oral 960 / 960 480 / 480 Output: Urine 800 / 800 Gastric Drainage 250 / 250 600 / 600 Right Nare Orogastric Tube 250 / 250 600 / 600 Other: # Voids 1 Date of Last Bowel Movement 01/11/18 01/11/18 01/11/18 # Bowel Movements 0 <Sabino Fuchs - Last Filed: 01/15/18 17:15> Results - Labs CBC & Chem 7: 01/15/18 03:30 01/15/18 03:30 Laboratory Results - last 24 hr 01/14/18 01/14/18 01/14/18 13:28 13:51 18:02 WBC RBC Hgb 9.5 L Hct 27.5 L MCV MCH MCHC RDW Plt Count MPV Prelim Diff (Auto) Neut % (Auto) Lymph % (Auto) [place] % (Auto) Eos % (Auto) Baso % (Auto) Neut # (Auto) Lymph # (Auto) [place] # (Auto) Eos # (Auto) Baso # (Auto) WBC Differential Differential Comment Platelet Estimate Platelet Morphology Sodium Potassium Chloride Carbon Dioxide Anion Gap BUN Creatinine Estimated GFR POC Glucose 145 H 127 H Random Glucose Calcium Phosphorus Magnesium Total Bilirubin AST ALT Alkaline Phosphatase Total Protein Albumin Peritoneal RBC Periton Nuc Cells Periton Neutrophils Periton Lymphocytes Peritoneal Monocytes Periton Histiocytes Peritoneal Tot Protein Peritoneal LDH Peritoneal Glucose 01/15/18 01/15/18 01/15/18 00:06 03:30 03:30 WBC 5.5 RBC 2.57 L Hgb 8.9 L Hct 25.7 L MCV 100.2 H MCH 34.7 H MCHC 34.7 RDW 17.7 H Plt Count 79 L MPV 7.7 Prelim Diff (Auto) Slide review pending Neut % (Auto) 59.3 Lymph % (Auto) 26.0 [place] % (Auto) 12.2 H Eos % (Auto) 2.1 Baso % (Auto) 0.4 Neut # (Auto) 3.2 Lymph # (Auto) 1.4 [place] # (Auto) 0.7 Eos # (Auto) 0.1 Baso # (Auto) 0.0 WBC Differential . Differential Comment . Platelet Estimate Low L Platelet Morphology Normal Sodium 139 Potassium 3.7 Chloride 109 H Carbon Dioxide 20.8 L Anion Gap 9 BUN 17 Creatinine 0.60 Estimated GFR Greater than 89 POC Glucose 118 H Random Glucose 114 H Calcium 7.7 L Phosphorus 2.3 L Magnesium 1.8 Total Bilirubin 0.8 AST 49 H ALT 51 Alkaline Phosphatase 98 Total Protein 5.8 L Albumin 2.6 L Peritoneal RBC Periton Nuc Cells Periton Neutrophils Periton Lymphocytes Peritoneal Monocytes Periton Histiocytes Peritoneal Tot Protein Peritoneal LDH Peritoneal Glucose 01/15/18 01/15/18 01/15/18 05:20 08:46 08:46 WBC RBC Hgb Hct MCV MCH MCHC RDW Plt Count MPV Prelim Diff (Auto) Neut % (Auto) Lymph % (Auto) [place] % (Auto) Eos % (Auto) Baso % (Auto) Neut # (Auto) Lymph # (Auto) [place] # (Auto) Eos # (Auto) Baso # (Auto) WBC Differential Differential Comment Platelet Estimate Platelet Morphology Sodium Potassium Chloride Carbon Dioxide Anion Gap BUN Creatinine Estimated GFR POC Glucose 126 H Random Glucose Calcium Phosphorus Magnesium Total Bilirubin AST ALT Alkaline Phosphatase Total Protein Albumin Peritoneal RBC 74 H Periton Nuc Cells 40 H Periton Neutrophils 21 Periton Lymphocytes 43 Peritoneal Monocytes 21 Periton Histiocytes 15 Peritoneal Tot Protein 0.2 Peritoneal LDH 16 Peritoneal Glucose 127 01/15/18 11:16 WBC RBC Hgb Hct MCV MCH MCHC RDW Plt Count MPV Prelim Diff (Auto) Neut % (Auto) Lymph % (Auto) [place] % (Auto) Eos % (Auto) Baso % (Auto) Neut # (Auto) Lymph # (Auto) [place] # (Auto) Eos # (Auto) Baso # (Auto) WBC Differential Differential Comment Platelet Estimate Platelet Morphology Sodium Potassium Chloride Carbon Dioxide Anion Gap BUN Creatinine Estimated GFR POC Glucose 122 H Random Glucose Calcium Phosphorus Magnesium Total Bilirubin AST ALT Alkaline Phosphatase Total Protein Albumin Peritoneal RBC Periton Nuc Cells Periton Neutrophils Periton Lymphocytes Peritoneal Monocytes Periton Histiocytes Peritoneal Tot Protein Peritoneal LDH Peritoneal Glucose - Imaging Impressions Abdomen/Pelvis CT 01/14/18 10:31 CONCLUSION: 1. Cirrhosis and portal hypertension with large volume of ascites. 2. Bilateral lower lobe consolidation. Paracentesis Ultrasound 01/15/18 00:00 CONCLUSION: 1. Uncomplicated ultrasound-guided paracentesis. <Thais Shipman - Last Filed: 01/15/18 13:11> - Labs CBC & Chem 7: 01/15/18 03:30 01/15/18 03:30 Laboratory Results - last 24 hr 01/14/18 01/15/18 01/15/18 18:02 00:06 03:30 WBC 5.5 RBC 2.57 L Hgb 8.9 L Hct 25.7 L MCV 100.2 H MCH 34.7 H MCHC 34.7 RDW 17.7 H Plt Count 79 L MPV 7.7 Prelim Diff (Auto) Slide review pending Neut % (Auto) 59.3 Lymph % (Auto) 26.0 [place] % (Auto) 12.2 H Eos % (Auto) 2.1 Baso % (Auto) 0.4 Neut # (Auto) 3.2 Lymph # (Auto) 1.4 [place] # (Auto) 0.7 Eos # (Auto) 0.1 Baso # (Auto) 0.0 WBC Differential . Differential Comment . Platelet Estimate Low L Platelet Morphology Normal Sodium Potassium Chloride Carbon Dioxide Anion Gap BUN Creatinine Estimated GFR POC Glucose 127 H 118 H Random Glucose Calcium Phosphorus Magnesium Total Bilirubin AST ALT Alkaline Phosphatase Total Protein Albumin Peritoneal RBC Periton Nuc Cells Periton Neutrophils Periton Lymphocytes Peritoneal Monocytes Periton Histiocytes Peritoneal Tot Protein Peritoneal LDH Peritoneal Glucose 01/15/18 01/15/18 01/15/18 03:30 05:20 08:46 WBC RBC Hgb Hct MCV MCH MCHC RDW Plt Count MPV Prelim Diff (Auto) Neut % (Auto) Lymph % (Auto) [place] % (Auto) Eos % (Auto) Baso % (Auto) Neut # (Auto) Lymph # (Auto) [place] # (Auto) Eos # (Auto) Baso # (Auto) WBC Differential Differential Comment Platelet Estimate Platelet Morphology Sodium 139 Potassium 3.7 Chloride 109 H Carbon Dioxide 20.8 L Anion Gap 9 BUN 17 Creatinine 0.60 Estimated GFR Greater than 89 POC Glucose 126 H Random Glucose 114 H Calcium 7.7 L Phosphorus 2.3 L Magnesium 1.8 Total Bilirubin 0.8 AST 49 H ALT 51 Alkaline Phosphatase 98 Total Protein 5.8 L Albumin 2.6 L Peritoneal RBC Periton Nuc Cells Periton Neutrophils Periton Lymphocytes Peritoneal Monocytes Periton Histiocytes Peritoneal Tot Protein 0.2 Peritoneal LDH 16 Peritoneal Glucose 127 01/15/18 01/15/18 08:46 11:16 WBC RBC Hgb Hct MCV MCH MCHC RDW Plt Count MPV Prelim Diff (Auto) Neut % (Auto) Lymph % (Auto) [place] % (Auto) Eos % (Auto) Baso % (Auto) Neut # (Auto) Lymph # (Auto) [place] # (Auto) Eos # (Auto) Baso # (Auto) WBC Differential Differential Comment Platelet Estimate Platelet Morphology Sodium Potassium Chloride Carbon Dioxide Anion Gap BUN Creatinine Estimated GFR POC Glucose 122 H Random Glucose Calcium Phosphorus Magnesium Total Bilirubin AST ALT Alkaline Phosphatase Total Protein Albumin Peritoneal RBC 74 H Periton Nuc Cells 40 H Periton Neutrophils 21 Periton Lymphocytes 43 Peritoneal Monocytes 21 Periton Histiocytes 15 Peritoneal Tot Protein Peritoneal LDH Peritoneal Glucose - Imaging Impressions Paracentesis Ultrasound 01/15/18 00:00 CONCLUSION: 1. Uncomplicated ultrasound-guided paracentesis. <Sabino Fuchs - Last Filed: 01/15/18 17:15> Assessment and Plan - Plan Assessment: - GIB Presented to the ER last night with complaints of black, tarry stools and coffee ground emesis. Pt states she began not feeling well yesterday morning, had a gnawing, constant abdominal pain located across the entire middle of her abdomen. States pain was worse when she was about to have BM and relieved some after BMs for a short period of time. She had one episode of hematochezia and then states multiple episodes of melena that began around 10 pm last night. Also began having multiple episodes of coffee ground emesis at that time. EGD done by our service in Mar 2017 --> Gastritis in the antrum and hiatal hernia. Colonoscopy in Feb 2017 --> Hemorrhoids, sigmoid diverticulosis and cecal polyp with pathology revealing tubular adenoma. Of note, pt has been taking Tylenol multiple times a day for back pain since March, states was told by [facility] to take Tylenol instead of Ibuprofen. Has not had any ETOH since March. - Cirrhosis with portal HTN- secondary to ETOH and she states Hepatitis A as a child Has been followed by our service outpatient but most recently seen by [facility] last and was supposed to have a follow up appt regarding lab and MRI results tomorrow. States not a candidate for a liver transplant because she is not sick enough - Thrombocytopenia- secondary to above - platelets 87 (01/14) Pt now S/P EGD x 2- the first one revealed coffee ground material and food bolus so procedure was repeated yesterday which revealed --> There was erythematous gastritis in the gastric antrum; biopsy was performed. Portal hypertensive gastropathy was found in the gastric antrum and gastric fundus. Normal duodenal mucosa in the bulb and second portion of the duodenum. Retroflexed views revealed no abnormalities. Pt appears in mild distress today, complaining of abdominal and chest pain radiating up to her ear. Abdomen is distended, she is unsure when the last time she passed gas was. Last BM was prior to admission. H/H trended down more today. Pt denies nausea, vomiting. Tolerated full liquid breakfast (01/15) Pt S/P CT abdomen and pelvis W IV contrast --> Cirrhosis and portal hypertension with large volume of ascites. Pt had US paracentesis this morning with 4400 mL of fluid removed. Pt is much more comfortable today. Denies any nausea, vomiting, abdominal pain. No BM since admission. Does not want colonoscopy. EGD biopsy (stomach antrum) gastric fundic-type mucosa without significant histologic abnormality. Plan: Advance diet Restart her on her diuretics (Spironolactone, Lasix) Inderal Lactulose DC Octreotide gtt DC Protonix gtt Protonix PO No colonoscopy at this time Repeat EGD in 6 months Our service will sign off, please reconsult as needed Pt follow up with [facility] for GI Pt has been seen and examined by myself and Dr. Fuchs and this note is written on his behalf <Thais Shipman - Last Filed: 01/15/18 13:11> - Plan Seen and examined with [facility], no bleeding reported. S/P paracentesis. Does not want colonoscopy at this time. DC octreotidde, advance diet. GI will sign off, [facility] as scheduled. Thankyou - Attending Attestation The exam, history, and the medical decision-making described in the above note were completed with the assistance of the mid-level provider. I reviewed and agree with the findings presented. I attest that I had a [id number] encounter with the patient on the same day, and personally performed and documented my assessment and findings in the medical record. <Sabino Fuchs - Last Filed: 01/15/18 17:15>
[2018-01-16] MEDS: Insulin NovoLIN Regular Correctional Sugar Inj SQ SCH ×4 (00:09→17:20)
[2018-01-16] MEDS: Chlorhexidine Gluconate 2% 1 Pack (2 Cloths) TOPICAL SCH (05:06)
[2018-01-16 06:00] LABS: Baso % (Auto) 0.6 % (0.0-2.0); Eos # (Auto) 0.1 th/mm3 (0.0-0.4); Eos % (Auto) 2.1 % (0.0-4.0); Hematocrit 24.1 % (35.0-46.0); Hemoglobin 8.3 gm/dL (11.6-15.3); Lymph # (Auto) 1.2 th/mm3 (1.0-4.8); Lymph % (Auto) 28.7 % (9.0-44.0); Mean Corpuscular HGB Conc 34.6 % (32.0-36.0); Mean Corpuscular Hemoglobin 34.3 pg (27.0-34.0); Mean Corpuscular Volume 99.3 fL (80.0-100.0); Mean Platelet Volume 7.6 fL (7.0-11.0); Mono # (Auto) 0.5 th/mm3 (0.0-0.9); Mono % (Auto) 12.7 % (0.0-8.0); Neut # (Auto) 2.3 th/mm3 (1.8-7.7); Neut % (Auto) 55.9 % (16.0-70.0); Platelet Count 73 th/mm3 (150-450); Red Blood Count 2.43 mil/mm3 (4.00-5.30); Red Cell Distribution Width 17.6 % (11.6-17.2); White Blood Count 4.2 th/mm3 (4.0-11.0)
[2018-01-16 06:16] LABS: Albumin 2.7 g/dL (3.4-5.0); Anion Gap 9 meq/L (5-15); Aspartate Aminotransferase 42 U/L (15-37); Blood Urea Nitrogen 14 mg/dL (7-18); Calcium 7.5 mg/dL (8.5-10.1); Carbon Dioxide 22.6 meq/L (21.0-32.0); Chloride 108 meq/L (98-107); Glomerular Filtration Rate Greater Than 89 mL/min (>89); Glucose,Random 117 mg/dL (74-106); Magnesium 1.9 mg/dL (1.5-2.5); Potassium 3.4 meq/L (3.5-5.1); Sodium 140 meq/L (136-145)
[2018-01-16 06:20] LABS: Alanine Aminotransferase 42 U/L (10-53); Alkaline Phosphatase 99 U/L (45-117); Phosphorus 3.2 mg/dL (2.5-4.9); Total Protein 5.6 g/dL (6.4-8.2)
[2018-01-16 08:05] LABS: Platelet Morphology Normal (Normal)
[2018-01-16] MEDS: Albumin Human 5% Inj 250 ML IV.SIG SCH ×2 (08:59→20:04)
[2018-01-16] MEDS: Spironolactone 50 MG Tablet PO SCH (08:59)
[2018-01-16] MEDS: Furosemide 20 MG Tablet PO SCH (08:59)
[2018-01-16] MEDS: Senna/Docusate Sodium 8.6/50 MG Tablet PO SCH ×2 (08:59→20:05)
[2018-01-16 09:18] VITALS: RESP 14
--- NOTE | 2018-01-16 15:56 | P.PN ---
Physical Exam Vital signs: Vital Signs 01/15/18 16:00 01/15/18 17:00 01/15/18 17:01 Temperature Pulse Rate 83 88 89 Respiratory Rate 26 H 31 H 41 H Blood Pressure 105/58 L 120/48 L Pulse Oximetry 100 97 96 01/15/18 18:00 01/15/18 19:00 01/15/18 20:00 Temperature 99.1 F Pulse Rate 79 92 H 84 Respiratory Rate 16 25 H 21 Blood Pressure 109/72 118/60 101/52 L Pulse Oximetry 99 95 100 01/15/18 20:01 01/15/18 21:00 01/15/18 22:00 Temperature Pulse Rate 84 84 90 Respiratory Rate 25 H 41 H 22 Blood Pressure 101/52 L 111/59 L 105/53 L Pulse Oximetry 100 96 97 01/15/18 23:00 01/16/18 00:00 01/16/18 01:00 Temperature 99.2 F Pulse Rate 89 87 80 Respiratory Rate 29 H 24 11 L Blood Pressure 111/53 L 98/51 L 90/53 L Pulse Oximetry 98 98 97 01/16/18 02:00 01/16/18 03:00 01/16/18 04:00 Temperature 98.7 F Pulse Rate 83 80 78 Respiratory Rate 14 11 L 11 L Blood Pressure 102/53 L 96/52 L 90/54 L Pulse Oximetry 97 96 94 L 01/16/18 07:00 01/16/18 07:47 01/16/18 08:00 Temperature 98.2 F Pulse Rate 80 Respiratory Rate 14 Blood Pressure 91/56 L Pulse Oximetry 98 98 100 01/16/18 09:00 01/16/18 12:00 Temperature 98.3 F Pulse Rate 80 78 Respiratory Rate 16 Blood Pressure 92/55 L Pulse Oximetry 98 Intake & Output 01/15/18 01/16/18 01/16/18 18:59 06:59 18:59 Intake Total 770 / 770 250 / 250 250 / 250 Output Total 1650 / 1650 400 / 400 Balance -880 / -880 -150 / -150 250 / 250 Weight 72.6 kg Intake: IV 350 / 350 250 / 250 250 / 250 Buminate 5% Inj 250 ML @ 250 250 / 250 250 / 250 250 / 250 mls/hr IV.SIG Q12H [facility] Rx#: [id number] Rocephin Inj 1,000 MG In NS Inj 100 / 100 100 ML @ 200 mls/hr IV.SIG Q24H [facility] Rx#:[id number] Oral 420 / 420 Output: Urine 1650 / 1650 400 / 400 Other: # Voids 1 Date of Last Bowel Movement 01/11/18 01/11/18 01/11/18 # Bowel Movements 0 Narrative: Subjective Subjective Remarks/Hospital Course: 72-year-old woman with a history of liver cirrhosis presents complaining of hematemesis and melena. She has had 2 episodes of GI bleed in the past. This was attributed to gastric ulcers at the time, but she has been following up with [facility] for variceal bleeding. She was feeling well until earlier today when she has noted melanotic stool and started having vomiting of dark coffee-ground emesis. Some mild abdominal pain radiating into the her back accompanying this. Symptoms been worsening since onset. No other aggravating or alleviating factors. No other complaints. Subjective 01/13: Patient complaining of headache, intermittent chest pain, abdominal pain and insomnia. Notified of small varix esophagus overnight with old blood/coffee -ground. No acute signs of bleeding. Plan for colonoscopy today. 01/14 No events overnight. On Protonix and Octreotide drips. Afebrile. 01/15 No events overnight. For Protonix and Octreotide drips. Afebrile. CT abdomen /pelvis showed cirrhosis of liver, portal HTN and ascites. 8 Feels better. However still with abd pain, diffuse. Some nausea but no vomiting. No BM. No fever or chills. Physical exam GENERAL: 72 year female resting in bed on room air no acute distress with halitosis CARDIOVASCULAR: Regular rate and rhythm. S1, S2. No S4. RESPIRATORY: No accessory muscle use. Clear to auscultation. Breath sounds equal bilaterally. GASTROINTESTINAL: Mild tenderness on palpation, distended MUSCULOSKELETAL: Extremities trace bilateral lower extremity edema. No obvious deformities. NEUROLOGICAL: Awake and alert. No obvious cranial nerve deficits. Motor grossly within normal limits. Five out of 5 muscle strength in the arms and legs. Normal speech. PSYCHIATRIC: Appropriate mood and affect; insight and judgment normal. Assessment and Plan Neuro/Psych: Insomnia Acetaminophen 650 mg p.o. every 6 hours as needed fever Melatonin 5 mg at night as needed insomnia. diphenhydramine 25 mg in a as needed breakthrough insomnia per patient request CV: Mild Lactic acidosis. Resolved Monitor HR and BP keep MAP>65mmHg Lactic acid 1.6 Resp: Continue with oxygen keep sats > 92% Incentive spirometry while awake Albuterol/ipratropium aerosols every 4 hours with albuterol aerosols every 2 hours as needed for dyspnea GI: Hematemesis Single distal esophageal varix Hiatal hernia Liver cirrhosis History of hepatitis A History of tubular adenoma History of sigmoid diverticulosis Hypoalbuminemia Low total protein Elevated AST Abdominal ascites EGD 01/12 revealed distal esophageal varix. Coffee-ground. Food bolus. No overt bleeding. Repeat EGD 01/13: There was erythematous gastritis in the gastric antrum; Portal hypertensive gastropathy was found in the gastric antrum and gastric fundus Normal duodenal mucosa in the bulb and second portion of the duodenum Continue pantoprazole drip at 8 mg/h and octreotide drip at 50 mcg an hour NGT to [facility], CT abdomen/pelvis showed cirrhosis of liver, portal HTN and ascites. s/p US guided paracentesis 01/15 with removal 4.4L, place on Albumin, follow up fluid analysis/cx : No indication for Stout catheter Monitor renal function, electrolytes replacement per protocol. d/c IVF, diurese with Lasix 40mg x1 Endo: Acute hyperglycemia Sliding scale insulin with novulin r with every 6 Accu-Cheks to maintain euglycemia Heme: Acute blood loss anemia/macrocytic History of thrombocytopenia Monitor CBC s/p transfusion 1u PRBC 01/13 ID: Patient states she is currently not on valacyclovir or amantadine Monitor for signs of infection Continue ceftriaxone 1 g daily prophylaxis daily 7 days MSK: Access -Utilize peripheral IV. Central line if indicated Prophylaxis -GI -pantoprazole drip. -DVT -SCD/pharmacological prophylaxis contraindicated with acute bleeding Transfer to med/surg floor Results - Labs CBC & Chem 7: 01/16/18 04:23 01/16/18 04:23 Laboratory Results - last 24 hr 01/15/18 01/16/18 01/16/18 18:16 00:02 04:23 WBC 4.2 RBC 2.43 L Hgb 8.3 L Hct 24.1 L MCV 99.3 MCH 34.3 H MCHC 34.6 RDW 17.6 H Plt Count 73 L MPV 7.6 Prelim Diff (Auto) Slide review pending Neut % (Auto) 55.9 Lymph % (Auto) 28.7 [place] % (Auto) 12.7 H Eos % (Auto) 2.1 Baso % (Auto) 0.6 Neut # (Auto) 2.3 Lymph # (Auto) 1.2 [place] # (Auto) 0.5 Eos # (Auto) 0.1 Baso # (Auto) 0.0 WBC Differential . Diff Scan Auto diff confirmed Differential Comment . Platelet Estimate Low L Platelet Morphology Normal Sodium Potassium Chloride Carbon Dioxide Anion Gap BUN Creatinine Estimated GFR POC Glucose 187 H 147 H Random Glucose Calcium Phosphorus Magnesium Total Bilirubin AST ALT Alkaline Phosphatase Total Protein Albumin 01/16/18 01/16/18 01/16/18 04:23 06:03 11:22 WBC RBC Hgb Hct MCV MCH MCHC RDW Plt Count MPV Prelim Diff (Auto) Neut % (Auto) Lymph % (Auto) [place] % (Auto) Eos % (Auto) Baso % (Auto) Neut # (Auto) Lymph # (Auto) [place] # (Auto) Eos # (Auto) Baso # (Auto) WBC Differential Diff Scan Differential Comment Platelet Estimate Platelet Morphology Sodium 140 Potassium 3.4 L Chloride 108 H Carbon Dioxide 22.6 Anion Gap 9 BUN 14 Creatinine 0.55 Estimated GFR Greater than 89 POC Glucose 129 H 136 H Random Glucose 117 H Calcium 7.5 L Phosphorus 3.2 Magnesium 1.9 Total Bilirubin 0.9 AST 42 H ALT 42 Alkaline Phosphatase 99 Total Protein 5.6 L Albumin 2.7 L
[2018-01-16] MEDS ORDERED: Simethicone 125 MG Chew Tablet PO PRN (21:20)
[2018-01-16] MEDS ORDERED: Simethicone 125 MG Chew Tablet PO ONE (21:20)
[2018-01-16] MEDS ORDERED: fentaNYL Citrate Inj 100 MCG/2 ML Ampul ONE (21:56)
[2018-01-16] MEDS ORDERED: Morphine Inj 4 MG/ML Vial ONE (21:56)
[2018-01-17] MEDS: Insulin NovoLIN Regular Correctional Sugar Inj SQ SCH ×4 (01:29→23:56)
[2018-01-17] MEDS: Melatonin 5 MG Tablet PO PRN ×2 (02:04→21:13)
--- NOTE | 2018-01-17 08:30 | P.PN ---
Physical Exam Vital signs: Vital Signs 01/16/18 09:00 01/16/18 12:00 01/16/18 16:00 Temperature 98.3 F 98.3 F Pulse Rate 80 78 68 Respiratory Rate 16 14 Blood Pressure 92/55 L 90/53 L Pulse Oximetry 98 98 01/16/18 20:00 01/16/18 20:10 01/17/18 00:00 Temperature 99 F 99.2 F Pulse Rate 70 74 Respiratory Rate 16 20 Blood Pressure 90/54 L 92/53 L Pulse Oximetry 100 100 98 01/17/18 04:00 Temperature 98.8 F Pulse Rate 73 Respiratory Rate 18 Blood Pressure 86/49 L Pulse Oximetry 97 Intake & Output 01/16/18 01/17/18 01/17/18 18:59 06:59 18:59 Intake Total 730 / 730 850 / 850 Output Total 800 / 800 500 / 500 Balance -70 / -70 350 / 350 Weight 70 kg Intake: IV 250 / 250 250 / 250 Buminate 5% Inj 250 ML @ 250 250 / 250 250 / 250 mls/hr IV.SIG Q12H [facility] Rx#: [id number] Oral 480 / 480 600 / 600 Output: Urine 800 / 800 500 / 500 Other: # Voids 2 Date of Last Bowel Movement 01/11/18 01/11/18 # Bowel Movements 0 Narrative: Subjective Subjective Remarks/Hospital Course: 72-year-old woman with a history of liver cirrhosis presents complaining of hematemesis and melena. She has had 2 episodes of GI bleed in the past. This was attributed to gastric ulcers at the time, but she has been following up with [place] for variceal bleeding. She was feeling well until earlier today when she has noted melanotic stool and started having vomiting of dark coffee-ground emesis. Some mild abdominal pain radiating into the her back accompanying this. Symptoms been worsening since onset. No other aggravating or alleviating factors. No other complaints. Subjective 01/13: Patient complaining of headache, intermittent chest pain, abdominal pain and insomnia. Notified of small varix esophagus overnight with old blood/coffee -ground. No acute signs of bleeding. Plan for colonoscopy today. 01/14 No events overnight. On Protonix and Octreotide drips. Afebrile. 01/15 No events overnight. For Protonix and Octreotide drips. Afebrile. CT abdomen /pelvis showed cirrhosis of liver, portal HTN and ascites. 01/16 Feels better. However still with abd pain, diffuse. Some nausea but no vomiting. No BM. No fever or chills. 01/17/18 In bed says she is still with nausea did not vomit. With diffuse abd pain. No fever or chills. Feesl weak . Not eating much . Consult severity of illness coordinator Physical exam GENERAL: 72 year female resting in bed on room air no acute distress with halitosis CARDIOVASCULAR: Regular rate and rhythm. S1, S2. No S4. RESPIRATORY: No accessory muscle use. Clear to auscultation. Breath sounds equal bilaterally. GASTROINTESTINAL: Mild tenderness on palpation, distended MUSCULOSKELETAL: Extremities trace bilateral lower extremity edema. No obvious deformities. NEUROLOGICAL: Awake and alert. No obvious cranial nerve deficits. Motor grossly within normal limits. Five out of 5 muscle strength in the arms and legs. Normal speech. PSYCHIATRIC: Appropriate mood and affect; insight and judgment normal. Assessment and Plan Neuro/Psych: Insomnia Acetaminophen 650 mg p.o. every 6 hours as needed fever Melatonin 5 mg at night as needed insomnia. diphenhydramine 25 mg in a as needed breakthrough insomnia per patient request CV: Mild Lactic acidosis. Resolved Monitor HR and BP keep MAP>65mmHg Lactic acid 1.6 Resp: Continue with oxygen keep sats > 92% Incentive spirometry while awake Albuterol/ipratropium aerosols every 4 hours with albuterol aerosols every 2 hours as needed for dyspnea GI: Hematemesis Single distal esophageal varix Hiatal hernia Liver cirrhosis History of hepatitis A History of tubular adenoma History of sigmoid diverticulosis Hypoalbuminemia Low total protein Elevated AST Abdominal ascites EGD 01/12 revealed distal esophageal varix. Coffee-ground. Food bolus. No overt bleeding. Repeat EGD 01/13: There was erythematous gastritis in the gastric antrum; Portal hypertensive gastropathy was found in the gastric antrum and gastric fundus Normal duodenal mucosa in the bulb and second portion of the duodenum Continue pantoprazole drip at 8 mg/h and octreotide drip at 50 mcg an hour NGT to [facility], CT abdomen/pelvis showed cirrhosis of liver, portal HTN and ascites. s/p US guided paracentesis 01/15 with removal 4.4L, place on Albumin, follow up fluid analysis/cx : No indication for Stout catheter Monitor renal function, electrolytes replacement per protocol. d/c IVF, diurese with Lasix 40mg x1 Endo: Acute hyperglycemia Sliding scale insulin with novulin r with every 6 Accu-Cheks to maintain euglycemia Heme: Acute blood loss anemia/macrocytic History of thrombocytopenia Monitor CBC s/p transfusion 1u PRBC 01/13 ID: Patient states she is currently not on valacyclovir or amantadine Monitor for signs of infection Continue ceftriaxone 1 g daily prophylaxis daily 7 days MSK: Access -Utilize peripheral IV. Central line if indicated Prophylaxis -GI -pantoprazole drip. -DVT -SCD/pharmacological prophylaxis contraindicated with acute bleeding Transfer to med/surg floor Results - Labs CBC & Chem 7: 01/17/18 09:18 01/17/18 09:18 Laboratory Results - last 24 hr 01/16/18 01/16/18 01/17/18 11:22 23:07 06:44 POC Glucose 136 H 143 H 140 H
[2018-01-17] MEDS: Albumin Human 5% Inj 250 ML IV.SIG SCH ×2 (08:42→20:46)
[2018-01-17] MEDS: Senna/Docusate Sodium 8.6/50 MG Tablet PO SCH ×2 (08:43→20:46)
[2018-01-17] MEDS: Furosemide 20 MG Tablet PO SCH (08:43)
[2018-01-17] MEDS: Spironolactone 50 MG Tablet PO SCH (08:44)
[2018-01-17] MEDS: Morphine Sulfate Inj 2 MG/ML Vial IV.PUSH PRN ×3 (08:45→17:31)
[2018-01-17 10:24] LABS: Baso % (Auto) 0.5 % (0.0-2.0); Eos # (Auto) 0.1 th/mm3 (0.0-0.4); Eos % (Auto) 2.1 % (0.0-4.0); Hematocrit 26.4 % (35.0-46.0); Hemoglobin 8.9 gm/dL (11.6-15.3); Lymph # (Auto) 1.2 th/mm3 (1.0-4.8); Lymph % (Auto) 29.2 % (9.0-44.0); Mean Corpuscular HGB Conc 33.9 % (32.0-36.0); Mean Corpuscular Hemoglobin 33.8 pg (27.0-34.0); Mean Corpuscular Volume 99.8 fL (80.0-100.0); Mean Platelet Volume 7.7 fL (7.0-11.0); Mono # (Auto) 0.5 th/mm3 (0.0-0.9); Mono % (Auto) 12.1 % (0.0-8.0); Neut # (Auto) 2.3 th/mm3 (1.8-7.7); Neut % (Auto) 56.1 % (16.0-70.0); Platelet Count 90 th/mm3 (150-450); Red Blood Count 2.64 mil/mm3 (4.00-5.30); Red Cell Distribution Width 17.1 % (11.6-17.2); White Blood Count 4.2 th/mm3 (4.0-11.0)
[2018-01-17 10:41] LABS: Anion Gap 10 meq/L (5-15); Aspartate Aminotransferase 37 U/L (15-37); Blood Urea Nitrogen 14 mg/dL (7-18); Calcium 8.1 mg/dL (8.5-10.1); Carbon Dioxide 21.5 meq/L (21.0-32.0); Chloride 108 meq/L (98-107); Glomerular Filtration Rate Greater Than 89 mL/min (>89); Glucose,Random 137 mg/dL (74-106); Magnesium 1.9 mg/dL (1.5-2.5); Potassium 3.6 meq/L (3.5-5.1); Sodium 139 meq/L (136-145)
[2018-01-17 10:42] LABS: Alanine Aminotransferase 41 U/L (10-53); Phosphorus 2.3 mg/dL (2.5-4.9)
[2018-01-17 10:44] LABS: Alkaline Phosphatase 118 U/L (45-117)
[2018-01-17] MEDS: Potassium Phosphate 500 MG Soluble Tablet PO PRN ×2 (11:46→17:32)
[2018-01-17 12:31] LABS: Ovalocytes 1+
[2018-01-17 12:32] LABS: Platelet Morphology Normal (Normal); Polychromasia 2.4 % (0.0-1.9)
[2018-01-18] MEDS: Insulin NovoLIN Regular Correctional Sugar Inj SQ SCH (06:14)
[2018-01-18] MEDS: Spironolactone 50 MG Tablet PO SCH (08:57)
[2018-01-18] MEDS: Albumin Human 5% Inj 250 ML IV.SIG SCH (08:57)
[2018-01-18] MEDS: Senna/Docusate Sodium 8.6/50 MG Tablet PO SCH (08:58)
[2018-01-18] MEDS: Furosemide 20 MG Tablet PO SCH (08:58)
--- NOTE | 2018-01-18 09:24 | P.PN ---
Physical Exam Vital signs: Vital Signs 01/17/18 09:29 01/17/18 10:00 01/17/18 10:01 Temperature Pulse Rate 70 73 71 Respiratory Rate 21 22 24 Blood Pressure 87/52 L 103/58 L Pulse Oximetry 99 99 99 01/17/18 11:00 01/17/18 12:00 01/17/18 13:00 Temperature 98 F Pulse Rate 73 74 76 Respiratory Rate 20 24 27 H Blood Pressure 95/52 L 95/50 L 102/57 L Pulse Oximetry 97 97 93 L 01/17/18 14:00 01/17/18 15:00 01/17/18 16:00 Temperature 97.6 F Pulse Rate 75 75 78 Respiratory Rate 25 H 22 28 H Blood Pressure 91/50 L 98/54 L Pulse Oximetry 97 99 96 01/17/18 16:15 01/17/18 17:00 01/17/18 18:00 Temperature Pulse Rate 74 73 73 Respiratory Rate 26 H 21 19 Blood Pressure 98/54 L 96/55 L 80/43 L Pulse Oximetry 100 100 98 01/17/18 18:10 01/17/18 19:00 01/17/18 20:00 Temperature 97.8 F Pulse Rate 73 79 79 Respiratory Rate 21 24 24 Blood Pressure 91/53 L 94/53 L 85/50 L Pulse Oximetry 99 93 L 98 01/17/18 21:00 01/17/18 21:45 01/17/18 22:00 Temperature Pulse Rate 77 75 Respiratory Rate 24 13 Blood Pressure 91/54 L 106/53 L Pulse Oximetry 99 96 96 01/17/18 23:00 01/18/18 00:00 01/18/18 01:00 Temperature 98.6 F Pulse Rate 75 76 73 Respiratory Rate 15 15 15 Blood Pressure 94/55 L 89/51 L 90/52 L Pulse Oximetry 96 98 98 01/18/18 02:00 01/18/18 03:00 01/18/18 04:00 Temperature 98.8 F Pulse Rate 76 72 76 Respiratory Rate 15 15 14 Blood Pressure 89/54 L 93/52 L Pulse Oximetry 97 97 97 01/18/18 04:02 01/18/18 05:00 01/18/18 05:01 Temperature Pulse Rate 75 72 74 Respiratory Rate 14 15 18 Blood Pressure 98/51 L 95/53 L Pulse Oximetry 98 98 97 01/18/18 06:00 01/18/18 06:01 Temperature Pulse Rate 79 71 Respiratory Rate 19 14 Blood Pressure 105/50 L Pulse Oximetry 92 L 95 Intake & Output 01/17/18 01/18/18 01/18/18 18:59 06:59 18:59 Intake Total 1125 / 1125 1050 / 1050 Output Total 1700 / 1700 500 / 500 Balance -575 / -575 550 / 550 Weight 76 kg Intake: IV 250 / 250 250 / 250 Buminate 5% Inj 250 ML @ 250 250 / 250 250 / 250 mls/hr IV.SIG Q12H [facility] Rx#: [id number] Oral 825 / 825 800 / 800 Anesthesia Amount 50 / 50 Output: Urine 1100 / 1100 500 / 500 Stool 0 / 0 Gastric Drainage 600 / 600 Right Nare Orogastric Tube 600 / 600 Other: # Voids 3 Date of Last Bowel Movement 01/17/18 01/17/18 # Bowel Movements 1 1 # Incontinent Bowel Movements 0 Narrative: Subjective Subjective Remarks/Hospital Course: 72-year-old woman with a history of liver cirrhosis presents complaining of hematemesis and melena. She has had 2 episodes of GI bleed in the past. This was attributed to gastric ulcers at the time, but she has been following up with [place] for variceal bleeding. She was feeling well until earlier today when she has noted melanotic stool and started having vomiting of dark coffee-ground emesis. Some mild abdominal pain radiating into the her back accompanying this. Symptoms been worsening since onset. No other aggravating or alleviating factors. No other complaints. Subjective 01/13: Patient complaining of headache, intermittent chest pain, abdominal pain and insomnia. Notified of small varix esophagus overnight with old blood/coffee -ground. No acute signs of bleeding. Plan for colonoscopy today. 01/14 No events overnight. On Protonix and Octreotide drips. Afebrile. 01/15 No events overnight. For Protonix and Octreotide drips. Afebrile. CT abdomen /pelvis showed cirrhosis of liver, portal HTN and ascites. 01/16 Feels better. However still with abd pain, diffuse. Some nausea but no vomiting. No BM. No fever or chills. 01/17/18 In bed says she is still with nausea did not vomit. With diffuse abd pain. No fever or chills. Feesl weak . Not eating much . Consult inspector tubes 01/18 feels much better . Abdominal pain improved. No fever or chills overnight. Blood pressure into the lower side. No nausea or vomiting is eating fairly well. Feels comfortable to go home today. Physical exam GENERAL: 72 year female resting in bed on room air no acute distress with halitosis CARDIOVASCULAR: Regular rate and rhythm. S1, S2. No S4. RESPIRATORY: No accessory muscle use. Clear to auscultation. Breath sounds equal bilaterally. GASTROINTESTINAL: Mild tenderness on palpation, distended MUSCULOSKELETAL: Extremities trace bilateral lower extremity edema. No obvious deformities. NEUROLOGICAL: Awake and alert. No obvious cranial nerve deficits. Motor grossly within normal limits. Five out of 5 muscle strength in the arms and legs. Normal speech. PSYCHIATRIC: Appropriate mood and affect; insight and judgment normal. Assessment and Plan Neuro/Psych: Insomnia Acetaminophen 650 mg p.o. every 6 hours as needed fever Melatonin 5 mg at night as needed insomnia. diphenhydramine 25 mg in a as needed breakthrough insomnia per patient request CV: Mild Lactic acidosis. Resolved Monitor HR and BP keep MAP>65mmHg Lactic acid 1.6 Resp: Continue with oxygen keep sats > 92% Incentive spirometry while awake Albuterol/ipratropium aerosols every 4 hours with albuterol aerosols every 2 hours as needed for dyspnea GI: Hematemesis Single distal esophageal varix Hiatal hernia Liver cirrhosis History of hepatitis A History of tubular adenoma History of sigmoid diverticulosis Hypoalbuminemia Low total protein Elevated AST Abdominal ascites EGD 01/12 revealed distal esophageal varix. Coffee-ground. Food bolus. No overt bleeding. Repeat EGD 01/13: There was erythematous gastritis in the gastric antrum; Portal hypertensive gastropathy was found in the gastric antrum and gastric fundus Normal duodenal mucosa in the bulb and second portion of the duodenum Continue pantoprazole drip at 8 mg/h and octreotide drip at 50 mcg an hour NGT to [facility], CT abdomen/pelvis showed cirrhosis of liver, portal HTN and ascites. s/p US guided paracentesis 01/15 with removal 4.4L, place on Albumin, follow up fluid analysis/cx : No indication for Stout catheter Monitor renal function, electrolytes replacement per protocol. d/c IVF, diurese with Lasix 40mg x1 Endo: Acute hyperglycemia Sliding scale insulin with novulin r with every 6 Accu-Cheks to maintain euglycemia Heme: Acute blood loss anemia/macrocytic History of thrombocytopenia Monitor CBC s/p transfusion 1u PRBC 01/13 ID: Patient states she is currently not on valacyclovir or amantadine Monitor for signs of infection Continue ceftriaxone 1 g daily prophylaxis daily 7 days MSK: Access -Utilize peripheral IV. Central line if indicated Prophylaxis -GI -pantoprazole drip. -DVT -SCD/pharmacological prophylaxis contraindicated with acute bleeding Discharge home with home health to follow-up with PCP and consultants as outpatient. The patient is improving Results - Labs CBC & Chem 7: 01/17/18 09:18 01/17/18 09:18 Laboratory Results - last 24 hr 01/17/18 01/17/18 01/17/18 09:18 09:18 11:44 WBC 4.2 RBC 2.64 L Hgb 8.9 L Hct 26.4 L MCV 99.8 MCH 33.8 MCHC 33.9 RDW 17.1 Plt Count 90 L MPV 7.7 Prelim Diff (Auto) Slide review pending Neut % (Auto) 56.1 Lymph % (Auto) 29.2 [place] % (Auto) 12.1 H Eos % (Auto) 2.1 Baso % (Auto) 0.5 Neut # (Auto) 2.3 Lymph # (Auto) 1.2 [place] # (Auto) 0.5 Eos # (Auto) 0.1 Baso # (Auto) 0.0 WBC Differential . Diff Scan Auto diff confirmed Differential Comment . Platelet Estimate Low L Platelet Morphology Normal Polychromasia 2.4 H Ovalocytes 1+ H Sodium 139 Potassium 3.6 Chloride 108 H Carbon Dioxide 21.5 Anion Gap 10 BUN 14 Creatinine 0.62 Estimated GFR Greater than 89 POC Glucose 116 H Random Glucose 137 H Calcium 8.1 L Phosphorus 2.3 L Magnesium 1.9 Total Bilirubin 0.9 AST 37 ALT 41 Alkaline Phosphatase 118 H Total Protein 6.0 L Albumin 3.0 L 01/17/18 01/17/18 01/18/18 17:14 23:51 06:03 WBC RBC Hgb Hct MCV MCH MCHC RDW Plt Count MPV Prelim Diff (Auto) Neut % (Auto) Lymph % (Auto) [place] % (Auto) Eos % (Auto) Baso % (Auto) Neut # (Auto) Lymph # (Auto) [place] # (Auto) Eos # (Auto) Baso # (Auto) WBC Differential Diff Scan Differential Comment Platelet Estimate Platelet Morphology Polychromasia Ovalocytes Sodium Potassium Chloride Carbon Dioxide Anion Gap BUN Creatinine Estimated GFR POC Glucose 172 H 181 H 120 H Random Glucose Calcium Phosphorus Magnesium Total Bilirubin AST ALT Alkaline Phosphatase Total Protein Albumin
--- NOTE | 2018-01-18 10:18 | P.DCO ---
- Physical Therapy Order: Evaluate and treat - Home Health Nursing Order: Medical education, Signs/symptoms of disease process, Medication education-adverse effect, Nursing assessment with vital signs, IV medication administration, Telehealth - Certification I have seen patient Court Pierce on 01/18/18. My clinical findings support the need for the requested home health care services because: Limited mobility due to disease progression, Deconditioned with increased weakness I certify that my clinical findings support that this patient is homebound because: Post-op weakness
--- NOTE | 2018-01-18 10:18 | P.DS ---
Date of admission: 01/12/18 01:54 Primary care physician: Isaias Monzon MD Brief History from admission: 72-year-old woman with a history of liver cirrhosis presents complaining of hematemesis and melena. She has had 2 episodes of GI bleed in the past. This was attributed to gastric ulcers at the time, but she has been following up with [place] for variceal bleeding. She was feeling well until earlier today when she has noted melanotic stool and started having vomiting of dark coffee-ground emesis. Some mild abdominal pain radiating into the her back accompanying this. Symptoms been worsening since onset. No other aggravating or alleviating factors. No other complaints. DS: Diagnosis - Discharge Diagnosis (1) Upper gastrointestinal hemorrhage Status: Acute DS: Medications - Discharge Medications Prescriptions: furosemide 20 mg PO DAILY #30 tab pantoprazole 40 mg PO DAILY #30 tab propranolol 20 mg PO DAILY #30 tab spironolactone 50 mg PO DAILY #30 tab DS: Summary Hospital Course: 72-year-old woman with a history of liver cirrhosis presents complaining of hematemesis and melena. She has had 2 episodes of GI bleed in the past. This was attributed to gastric ulcers at the time, but she has been following up with [place] for variceal bleeding. She was feeling well until earlier today when she has noted melanotic stool and started having vomiting of dark coffee-ground emesis. Some mild abdominal pain radiating into the her back accompanying this. Symptoms been worsening since onset. No other aggravating or alleviating factors. No other complaints. Patient has EGD on 01/12 revealed distal esophageal varix no overt bleeding repeat EGD on 01/13 with erythematous gastritis in the gastric antrum. Patient with portal hypertension gastropathy. Patient was placed on PPIs. She had NG tube to low intermittent suction removed as patient was improving. CT abdomen showed cirrhotic liver portal hypertension and ascites. Patient had ultrasound guided paracentesis on 01/15 with removal of 4.4 L she received albumin is noted with low blood pressure. Is also on Lasix and Aldactone. Patient improved significantly she was discharged home with home health to follow-up with PCP and consultants as outpatient Neuro/Psych: Insomnia Acetaminophen 650 mg p.o. every 6 hours as needed fever Melatonin 5 mg at night as needed insomnia. diphenhydramine 25 mg in a as needed breakthrough insomnia per patient request CV: Mild Lactic acidosis. Resolved Monitor HR and BP keep MAP>65mmHg Lactic acid 1.6 Resp: Continue with oxygen keep sats > 92% Incentive spirometry while awake Albuterol/ipratropium aerosols every 4 hours with albuterol aerosols every 2 hours as needed for dyspnea GI: Hematemesis Single distal esophageal varix Hiatal hernia Liver cirrhosis History of hepatitis A History of tubular adenoma History of sigmoid diverticulosis Hypoalbuminemia Low total protein Elevated AST Abdominal ascites EGD 01/12 revealed distal esophageal varix. Coffee-ground. Food bolus. No overt bleeding. Repeat EGD 01/13: There was erythematous gastritis in the gastric antrum; Portal hypertensive gastropathy was found in the gastric antrum and gastric fundus Normal duodenal mucosa in the bulb and second portion of the duodenum Continue pantoprazole drip at 8 mg/h and octreotide drip at 50 mcg an hour NGT to [facility], CT abdomen/pelvis showed cirrhosis of liver, portal HTN and ascites. s/p US guided paracentesis 01/15 with removal 4.4L, place on Albumin, follow up fluid analysis/cx : No indication for Stout catheter Monitor renal function, electrolytes replacement per protocol. d/c IVF, diurese with Lasix 40mg x1 Endo: Acute hyperglycemia Sliding scale insulin with novulin r with every 6 Accu-Cheks to maintain euglycemia Heme: Acute blood loss anemia/macrocytic History of thrombocytopenia Monitor CBC s/p transfusion 1u PRBC 01/13 ID: Patient states she is currently not on valacyclovir or amantadine Monitor for signs of infection Continue ceftriaxone 1 g daily prophylaxis daily 7 days MSK: Access -Utilize peripheral IV. Central line if indicated Prophylaxis -GI -pantoprazole drip. -DVT -SCD/pharmacological prophylaxis contraindicated with acute bleeding The patient improved. Discharge home with home health in stable condition to follow-up with PCP and consultants as outpatient. - Time Spent with Patient Total time spent providing and/or coordinating discharge services: Greater than 30 minutes Exam Vital signs: Vital Signs 01/17/18 11:00 01/17/18 12:00 01/17/18 13:00 Temperature 98 F Pulse Rate 73 74 76 Respiratory Rate 20 24 27 H Blood Pressure 95/52 L 95/50 L 102/57 L Pulse Oximetry 97 97 93 L 01/17/18 14:00 01/17/18 15:00 01/17/18 16:00 Temperature 97.6 F Pulse Rate 75 75 78 Respiratory Rate 25 H 22 28 H Blood Pressure 91/50 L 98/54 L Pulse Oximetry 97 99 96 01/17/18 16:15 01/17/18 17:00 01/17/18 18:00 Temperature Pulse Rate 74 73 73 Respiratory Rate 26 H 21 19 Blood Pressure 98/54 L 96/55 L 80/43 L Pulse Oximetry 100 100 98 01/17/18 18:10 01/17/18 19:00 01/17/18 20:00 Temperature 97.8 F Pulse Rate 73 79 79 Respiratory Rate 21 24 24 Blood Pressure 91/53 L 94/53 L 85/50 L Pulse Oximetry 99 93 L 98 01/17/18 21:00 01/17/18 21:45 01/17/18 22:00 Temperature Pulse Rate 77 75 Respiratory Rate 24 13 Blood Pressure 91/54 L 106/53 L Pulse Oximetry 99 96 96 01/17/18 23:00 01/18/18 00:00 01/18/18 01:00 Temperature 98.6 F Pulse Rate 75 76 73 Respiratory Rate 15 15 15 Blood Pressure 94/55 L 89/51 L 90/52 L Pulse Oximetry 96 98 98 01/18/18 02:00 01/18/18 03:00 01/18/18 04:00 Temperature 98.8 F Pulse Rate 76 72 76 Respiratory Rate 15 15 14 Blood Pressure 89/54 L 93/52 L Pulse Oximetry 97 97 97 01/18/18 04:02 01/18/18 05:00 01/18/18 05:01 Temperature Pulse Rate 75 72 74 Respiratory Rate 14 15 18 Blood Pressure 98/51 L 95/53 L Pulse Oximetry 98 98 97 01/18/18 06:00 01/18/18 06:01 Temperature Pulse Rate 79 71 Respiratory Rate 19 14 Blood Pressure 105/50 L Pulse Oximetry 92 L 95 Intake & Output 01/17/18 01/18/18 01/18/18 18:59 06:59 18:59 Intake Total 1125 / 1125 1050 / 1050 Output Total 1700 / 1700 500 / 500 Balance -575 / -575 550 / 550 Weight 76 kg Intake: IV 250 / 250 250 / 250 Buminate 5% Inj 250 ML @ 250 250 / 250 250 / 250 mls/hr IV.SIG Q12H [facility] Rx#: [id number] Oral 825 / 825 800 / 800 Anesthesia Amount 50 / 50 Output: Urine 1100 / 1100 500 / 500 Stool 0 / 0 Gastric Drainage 600 / 600 Right Nare Orogastric Tube 600 / 600 Other: # Voids 3 Date of Last Bowel Movement 01/17/18 01/17/18 # Bowel Movements 1 1 # Incontinent Bowel Movements 0 Narrative: GENERAL: 72 year female resting in bed on room air no acute distress with halitosis CARDIOVASCULAR: Regular rate and rhythm. S1, S2. No S4. RESPIRATORY: No accessory muscle use. Clear to auscultation. Breath sounds equal bilaterally. GASTROINTESTINAL: Mild tenderness on palpation, distended MUSCULOSKELETAL: Extremities trace bilateral lower extremity edema. No obvious deformities. NEUROLOGICAL: Awake and alert. No obvious cranial nerve deficits. Motor grossly within normal limits. Five out of 5 muscle strength in the arms and legs. Normal speech. PSYCHIATRIC: Appropriate mood and affect; insight and judgment normal. Results Procedures completed during hospitalization: EGD x2 Paracentesis Completed studies during hospitalization: Pending at discharge 01/13/18 14:44 Surgical [PTH] Routine Labs on day of discharge: Labs from last 24 hours 01/18/18 01/17/18 01/17/18 06:03 23:51 17:14 WBC RBC Hgb Hct MCV MCH MCHC RDW Plt Count MPV Prelim Diff (Auto) Neut % (Auto) Lymph % (Auto) [place] % (Auto) Eos % (Auto) Baso % (Auto) Neut # (Auto) Lymph # (Auto) [place] # (Auto) Eos # (Auto) Baso # (Auto) WBC Differential Diff Scan Differential Comment Platelet Estimate Platelet Morphology Polychromasia Ovalocytes Sodium Potassium Chloride Carbon Dioxide Anion Gap BUN Creatinine Estimated GFR POC Glucose 120 H 181 H 172 H Random Glucose Calcium Phosphorus Magnesium Total Bilirubin AST ALT Alkaline Phosphatase Total Protein Albumin 01/17/18 01/17/18 01/17/18 11:44 09:18 09:18 WBC 4.2 RBC 2.64 L Hgb 8.9 L Hct 26.4 L MCV 99.8 MCH 33.8 MCHC 33.9 RDW 17.1 Plt Count 90 L MPV 7.7 Prelim Diff (Auto) Slide review pending Neut % (Auto) 56.1 Lymph % (Auto) 29.2 [place] % (Auto) 12.1 H Eos % (Auto) 2.1 Baso % (Auto) 0.5 Neut # (Auto) 2.3 Lymph # (Auto) 1.2 [place] # (Auto) 0.5 Eos # (Auto) 0.1 Baso # (Auto) 0.0 WBC Differential . Diff Scan Auto diff confirmed Differential Comment . Platelet Estimate Low L Platelet Morphology Normal Polychromasia 2.4 H Ovalocytes 1+ H Sodium 139 Potassium 3.6 Chloride 108 H Carbon Dioxide 21.5 Anion Gap 10 BUN 14 Creatinine 0.62 Estimated GFR Greater than 89 POC Glucose 116 H Random Glucose 137 H Calcium 8.1 L Phosphorus 2.3 L Magnesium 1.9 Total Bilirubin 0.9 AST 37 ALT 41 Alkaline Phosphatase 118 H Total Protein 6.0 L Albumin 3.0 L - Impressions ITS Impressions Abdomen/Pelvis CT 01/14/18 10:31 CONCLUSION: 1. Cirrhosis and portal hypertension with large volume of ascites. 2. Bilateral lower lobe consolidation. Paracentesis Ultrasound 01/15/18 00:00 CONCLUSION: 1. Uncomplicated ultrasound-guided paracentesis. Discharge Plan - Discharge Disposition Patient Disposition: /Home Health Service - Discharge Condition Condition: Stable - Discharge Order Discharge Orders: Discharge Order (Routine); Ordered 01/18/18 Ordered By: Malena Orellana - Discharge Details Anticipated Discharge Date: 01/18/18 - Physicians Team Primary Care Provider: Isaias Monzon V Attending Provider: Malena Orellana Other Providers: Sabino Fuchs MD
[2018-01-20 18:10] VITALS: BP 95/52; PULSE 74; TEMP 98.4; O2SAT 96
== END 2018-01-18 13:00 | disposition home health service (06) ==
LOC: NEPC 23:22 → NEDA 01-12 01:54 → HIMC 01-12 03:30
PROVIDERS: ADMIT Hospitalist; ATTEND Hospitalist
PROC: PANENDO (2018-01-12 11:48)

== ENCOUNTER 2018-08-09 23:12 | Inpatient (IN) ==
[2018-08-09] MEDS ORDERED: Pantoprazole Inj 80 MG in Sodium Chlor 0.9% Inj 50 ML IV.SIG ONE (23:34)
[2018-08-09] MEDS: Sod Chloride 0.9% Inj 1,000 ML IV.CONT SCH (23:55)
[2018-08-10 00:03] LABS: Baso % (Auto) 0.5 % (0.0-2.0); Eos % (Auto) 0.1 % (0.0-4.0); Hematocrit 23.7 % (35.0-46.0); Hemoglobin 7.9 gm/dL (11.6-15.3); Lymph % (Auto) 12.6 % (9.0-44.0); Mean Corpuscular HGB Conc 33.5 % (32.0-36.0); Mean Corpuscular Hemoglobin 28.2 pg (27.0-34.0); Mean Corpuscular Volume 84.1 fL (80.0-100.0); Mean Platelet Volume 8.1 fL (7.0-11.0); Mono # (Auto) 0.8 th/mm3 (0.0-0.9); Mono % (Auto) 10.1 % (0.0-8.0); Neut # (Auto) 5.8 th/mm3 (1.8-7.7); Neut % (Auto) 76.7 % (16.0-70.0); Platelet Count 111 th/mm3 (150-450); Red Blood Count 2.82 mil/mm3 (4.00-5.30); White Blood Count 7.6 th/mm3 (4.0-11.0)
--- NOTE | 2018-08-10 00:03 | XR ---
EXAM DATE: 08/09/2018 11:59 PM EST AGE/SEX: 72 years / Female INDICATIONS: Vomiting today. CLINICAL DATA: This is the patient's initial encounter. Patient reports that signs and symptoms have been present for 1 day and indicates a pain score of 2/10. MEDICAL/SURGICAL HISTORY: . Cirrhosis. Hepatitis A. . Hysterectomy. Total knee replacement, l eft. Cholecystectomy. Back surgery. COMPARISON: [facility] – [place], CHEST PA & LAT, 07/30/2010. . FINDINGS: A single AP view of the chest demonstrates the lungs to be symmetrically aerated without evidence of mass, infiltrate or effusion. The cardiomediastinal contours are unremarkable. Osseous structures a re intact. CONCLUSION: No acute intracranial abnormality Electronically signed by: Karan Echavarria MD Board Certified Radiologist 08/10/2018 12:01 AM EST
[2018-08-10 00:15] LABS: Activated Partial Thrombo Time 27.2 sec (23.4-31.7); INR 1.3 Ratio; Prothrombin Time 13.6 sec (9.8-11.6)
[2018-08-10 00:24] LABS: Alanine Aminotransferase 43 U/L (10-53); Albumin 2.9 g/dL (3.4-5.0); Anion Gap 11 meq/L (5-15); Aspartate Aminotransferase 47 U/L (15-37); Blood Urea Nitrogen 66 mg/dL (7-18); Calcium 8.3 mg/dL (8.5-10.1); Carbon Dioxide 24.9 meq/L (21.0-32.0); Chloride 94 meq/L (98-107); Glomerular Filtration Rate 56 mL/min (>89); Glucose,Random 159 mg/dL (74-106); Lipase 347 U/L (73-393); Magnesium 2.1 mg/dL (1.5-2.5); Potassium 4.4 meq/L (3.5-5.1); Sodium 130 meq/L (136-145)
[2018-08-10 00:28] LABS: Alkaline Phosphatase 108 U/L (45-117); Total Protein 6.8 g/dL (6.4-8.2); Troponin I 0.03 ng/mL (0.02-0.05)
[2018-08-10] MEDS: Pantoprazole Inj 80 MG in Sodium Chlor 0.9% Inj 100 ML IV.CONT SCH ×3 (00:41→21:46)
[2018-08-10] MEDS: Octreotide Inj 500 MCG in Sodium Chlor 0.9% Inj 500 ML IV.CONT SCH ×3 (00:41→21:46)
--- NOTE | 2018-08-10 00:44 | ED ---
HPI General Chief complaint: Nausea/Vomiting/Diarrhea Stated complaint: bleeding Time Seen by Provider: 08/09/18 23:31 History of Present Illness HPI narrative: The patient is a 72 year old female who presents to the [facility] emergency department with a history of reportedly having intermittent sharp abdominal pains that began yesterday. She reports that they seem to come and go randomly, however they were associated with eating at times, therefore she did try eliminating certain foods without any improvement. She reports that the pain is sharp in character. She reports that the most painful areas along the lower abdomen, however when it happens it is diffuse. She reports that this evening she had a black tarry stool, and one episode of vomiting that consisted of coffee-ground emesis with 2 small blood clots. The patient's past medical history is complicated by having cirrhosis with a history of peptic ulcer disease and varices. She reports that she had a small variceal bleed 2 weeks ago that is post banding at the [facility]. She reports that she was in the process of doing a bowel prep today to have another endoscopy done tomorrow. She reports feeling fatigued. She denies having any chest pain, chest pressure, or shortness of breath. She is unsure when she last had a blood transfusion, however she believes it was sometime last year. The patient reports that her cirrhosis is related to a prior history of hepatitis A and prior alcohol use. She reports that she quit drinking alcohol 2 years ago. She denies taking any anti-inflammatory medications. She denies being on any blood thinners or taking aspirin daily. On review of systems otherwise, the patient denies having any recent fevers, congestion, neck pain, urinary symptoms , or neurologic symptoms. Related Data Home Medications Medication Instructions Recorded Confirmed amantadine HCl 100 mg PO BID 01/12/18 08/09/18 furosemide 80 mg PO DAILY 01/12/18 08/09/18 lactulose 10 g PO BID 01/12/18 08/09/18 sertraline 50 mg PO DAILY 01/12/18 08/09/18 spironolactone 200 mg PO DAILY 01/12/18 08/09/18 valacyclovir 1,000 mg PO BID 01/12/18 08/09/18 Previous Rx's Medication Instructions Recorded furosemide 20 mg PO DAILY #30 tab 01/18/18 pantoprazole 40 mg PO DAILY #30 tab 01/18/18 propranolol 20 mg PO DAILY #30 tab 01/18/18 spironolactone 50 mg PO DAILY #30 tab 01/18/18 Allergies Allergy/AdvReac Type Severity Reaction Status Date / Time No Known Allergies Allergy Verified 08/09/18 23:23 Review of Systems ROS: all other systems reviewed are negative [facility] Medical History Medical History Cirrhosis of liver (Acute) H/O: hysterectomy (Acute) Hepatitis A (Acute) Surgical History Surgical History History of back surgery (Acute) History of left knee replacement (Acute) Hx of cholecystectomy (Acute) Social History Social History Substance History: No History of Abuse Second Hand Smoke Exposure: No Smoking Status: Former smoker How Often Do You Have a Drink Containing Alcohol: Never Recent Travel in [facility] within the Last 8 Weeks: No Recent Out of Country Travel within the Last 8 Weeks: No Immunization History Tetanus Immunization: Unsure Exam Const General: cooperative, no acute distress and well developed Nutritional Appearance: well nourished Orientation: alert, awake and oriented x3 HENMT Head: normocephalic and atraumatic Nose: no nasal discharge and no epistaxis Mouth: moist mucous membranes Throat: posterior oropharynx normal and uvula midline Eyes Sclera: normal sclerae Pupils: PERRL Neck Neck: no meningeal signs, trachea midline and no JVD Resp Effort & Inspection: no use of accessory muscles Auscultation: clear to auscultation bilaterally Cardio Rate: tachycardic (Sinus tachycardia in the low 100s. No pulse deficits to the extremities on simultaneous auscultation and palpation of her radial artery) Rhythm: regular rhythm Heart Sounds: no gallops, no murmurs and no rubs GI Inspection: non-distended Palpation: soft, no hepatosplenomegaly, no guarding, not rigid and tender ( Reported diffuse tenderness on palpation, however the patient's abdomen is soft , without guarding, rebound, or rigidity.) with no rebound tenderness Auscultation: normal bowel sounds Rectal Exam: visual inspection normal, heme positive stool (The patient's stool is black. Stool is Hemoccult positive.), No mass and No tenderness Back/Spine/Pelvis Back: no CVA tenderness Skin General: dry skin (warm) Neuro General: alert, awake, oriented x3 and other (Grossly nonfocal) Speech: speech normal Motor: no movement abnormalities noted Extrem General: normal to inspection (2+ pulses in all 4 extremities.), no calf tenderness, no clubbing, no cyanosis and no edema Psych Mood: congruent mood Affect: normal affect Judgment: judgment good Course Initial Documented Vital Signs Temperature 97.6 F 08/09/18 23:18 Pulse Rate 90 08/09/18 23:18 Respiratory Rate 18 08/09/18 23:18 Blood Pressure 127/60 08/09/18 23:18 Pulse Oximetry 96 08/09/18 23:18 Last Documented Vital Signs Temperature 98.2 F 08/10/18 16:00 Pulse Rate 94 H 08/10/18 17:00 Respiratory Rate 16 08/10/18 16:00 Blood Pressure 125/60 08/10/18 16:00 Pulse Oximetry 99 08/10/18 16:00 Critical Care Time Critical Care Time: Yes Total Critical Care Time: 38 Attestation: Aggregate critical care time was 38 minutes. Time to perform other separately billable procedures was not included in the critical care time. My time did not include minutes spent treating any other patients simultaneously or on activities that did not directly contribute to the patient's treatment. The services I provided to this patient were to treat and/or prevent clinically significant deterioration that could result in: Hemorrhagic shock, versus respiratory failure from crystalloid resuscitation , versus I provided critical care services requiring my management, as noted below: Chart data review, documentation time, medication orders and management, vital sign assessments/reviewing monitor data, ordering and reviewing lab tests, ordering and interpreting/reviewing x-rays and diagnostic studies, care of the patient and discussion of the patient with the admitting physicians. Medical Decision Making MDM Narrative Medical decision making narrative: During the course of the patient's emergency department visit, the patient's history, examination, and differential diagnosis were reviewed with the patient. The patient was placed on a ekg monitor with oximetry and frequent blood pressure monitoring. The patient had IV access obtained and blood work sent for analysis. A diagnostic evaluation was started regarding this patient's upper GI bleed associated with melanotic stools. The patient was initially provided normal saline 125 mL/h, octreotide as a drip was started. The patient was given Protonix 80 mg IV followed by a Protonix drip. The patient was given Zofran for nausea. The patient was typed and screened in case blood was necessary to be administered. The patient's diagnostic studies are remarkable for a white count of 7.6, hemoglobin 7.9 which is decreased from an 8.9 on January 19, 2018, the patient was typed and crossmatched for 4 units of packed red blood cells, 1 unit will be administered currently due to the patient's comorbid medical conditions and current symptomatic anemia with continued bleeding represented by melanotic stools, platelets are 111, neutrophils 76.7, monocytes 10.1. PT is 13.6, INR 1.3, PTT 27.2, chemistries remarkable for sodium 130, potassium 4.4, chloride 94 , BUN 66, GFR 56, calcium 8.3, total bilirubin 1.1, AST is 47, ammonia level is elevated at 55, albumin 2.9, lipase within normal limits. Urinalysis shows hazy urine moderate leukocyte esterase, 1 RBC, 12 WBCs. The patient was given Rocephin 1 g IV. The patient's chest x-ray revealed no acute cardiopulmonary disease. CT scan of the abdomen and pelvis revealed cirrhosis with splenomegaly and minimal ascites, diverticulosis without diverticulitis, stomach distended and contains fluid/debris, 1 cm nodule right upper lobe that is stable follow-up CT scan of the chest in 6 months to evaluate for stability. The patient's case including history, pertinent physical examination findings, and laboratory studies were discussed with Dr. Uriarte. It was agreed that the patient would be admitted to the hospitalist service. The patient's results were discussed with the patient, including the plan of care. I explained that further testing and/ or monitoring is indicated based on the patient's history, examination, and/ or laboratory findings. Therefore, I recommended admission for additional evaluation. The patient expressed understanding and was agreeable with this plan. The patient was admitted to the hospital in guarded condition and sent to a bed under the care of the [facility] service. Medical Screen Exam Complete: Yes Emergency Medical Condition: Yes Differential Diagnosis Differential Diagnosis: Variceal bleed, versus peptic ulcer bleed, versus AVM malformation, versus Danielle-Mosley tear Medical Records Medical records reviewed: Yes I reviewed the patient's medical records. Lab Data Lab results reviewed: Yes I reviewed the patient's lab results. Result diagrams: 08/10/18 17:43 08/09/18 23:50 Lab Results 08/09/18 08/09/18 08/09/18 Range/Units 23:50 23:50 23:50 WBC 7.6 (4.0-11.0) th/mm3 RBC 2.82 L (4.00-5.30) mil/mm3 Hgb 7.9 L (11.6-15.3) gm/dL Hct 23.7 L (35.0-46.0) % MCV 84.1 (80.0-100.0) fL MCH 28.2 (27.0-34.0) pg MCHC 33.5 (32.0-36.0) % RDW 20.0 H (11.6-17.2) % Plt Count 111 L (150-450) th/mm3 MPV 8.1 (7.0-11.0) fL Neut % (Auto) 76.7 H (16.0-70.0) % Lymph % (Auto) 12.6 (9.0-44.0) % Sully % (Auto) 10.1 H (0.0-8.0) % Eos % (Auto) 0.1 (0.0-4.0) % Baso % (Auto) 0.5 (0.0-2.0) % Neut # (Auto) 5.8 (1.8-7.7) th/mm3 Lymph # (Auto) 1.0 (1.0-4.8) th/mm3 Sully # (Auto) 0.8 (0.0-0.9) th/mm3 Eos # (Auto) 0.0 (0.0-0.4) th/mm3 Baso # (Auto) 0.0 (0.0-0.2) th/mm3 WBC Differential . Differential Comment Auto diff final PT 13.6 H (9.8-11.6) sec INR 1.3 Ratio APTT 27.2 (23.4-31.7) sec Sodium 130 L (136-145) meq/L Potassium 4.4 (3.5-5.1) meq/L Chloride 94 L (98-107) meq/L Carbon Dioxide 24.9 (21.0-32.0) meq/L Anion Gap 11 (5-15) meq/L BUN 66 H (7-18) mg/dL Creatinine 0.98 (0.50-1.00) mg/dL Estimated GFR 56 L (>89) mL/min Random Glucose 159 H (74-106) mg/dL Calcium 8.3 L (8.5-10.1) mg/dL Magnesium 2.1 (1.5-2.5) mg/dL Total Bilirubin 1.1 H (0.2-1.0) mg/dL AST 47 H (15-37) U/L ALT 43 (10-53) U/L Alkaline Phosphatase 108 (45-117) U/L Ammonia (11-32) mcmol/L Troponin I 0.03 (0.02-0.05) ng/mL Total Protein 6.8 (6.4-8.2) g/dL Albumin 2.9 L (3.4-5.0) g/dL Lipase 347 (73-393) U/L Urine Color (Yellw/Straw) Urine Clarity (Clear) Urine pH (5.0-8.5) Ur Specific Tyler (1.002-1.035) Urine Protein (Neg-Trace) mg/dL Urine Glucose (UA) (Negative) mg/dL Urine Ketones (Negative) mg/dL Urine Occult Blood (Negative) Urine Nitrate (Negative) Urine Bilirubin (Negative) Urine Urobilinogen (Less than 2) mg/dL Ur Leukocyte Esterase (Negative) Urine RBC (0-3) /hpf Urine WBC (0-5) /hpf Ur Squamous Epith Cells (0-5) /hpf Hyaline Casts (0-3) /lpf Micro UA Comment Ur Microscopic Review Urine Culture Comments Blood Type Blood Type Recheck Antibody Screen MTS Gel Crossmatch 08/09/18 08/09/18 08/10/18 Range/Units 23:50 23:50 00:42 WBC (4.0-11.0) th/mm3 RBC (4.00-5.30) mil/mm3 Hgb (11.6-15.3) gm/dL Hct (35.0-46.0) % MCV (80.0-100.0) fL MCH (27.0-34.0) pg MCHC (32.0-36.0) % RDW (11.6-17.2) % Plt Count (150-450) th/mm3 MPV (7.0-11.0) fL Neut % (Auto) (16.0-70.0) % Lymph % (Auto) (9.0-44.0) % Sully % (Auto) (0.0-8.0) % Eos % (Auto) (0.0-4.0) % Baso % (Auto) (0.0-2.0) % Neut # (Auto) (1.8-7.7) th/mm3 Lymph # (Auto) (1.0-4.8) th/mm3 Sully # (Auto) (0.0-0.9) th/mm3 Eos # (Auto) (0.0-0.4) th/mm3 Baso # (Auto) (0.0-0.2) th/mm3 WBC Differential Differential Comment PT (9.8-11.6) sec INR Ratio APTT (23.4-31.7) sec Sodium (136-145) meq/L Potassium (3.5-5.1) meq/L Chloride (98-107) meq/L Carbon Dioxide (21.0-32.0) meq/L Anion Gap (5-15) meq/L BUN (7-18) mg/dL Creatinine (0.50-1.00) mg/dL Estimated GFR (>89) mL/min Random Glucose (74-106) mg/dL Calcium (8.5-10.1) mg/dL Magnesium (1.5-2.5) mg/dL Total Bilirubin (0.2-1.0) mg/dL AST (15-37) U/L ALT (10-53) U/L Alkaline Phosphatase (45-117) U/L Ammonia 55 H (11-32) mcmol/L Troponin I (0.02-0.05) ng/mL Total Protein (6.4-8.2) g/dL Albumin (3.4-5.0) g/dL Lipase (73-393) U/L Urine Color (Yellw/Straw) Urine Clarity (Clear) Urine pH (5.0-8.5) Ur Specific Tyler (1.002-1.035) Urine Protein (Neg-Trace) mg/dL Urine Glucose (UA) (Negative) mg/dL Urine Ketones (Negative) mg/dL Urine Occult Blood (Negative) Urine Nitrate (Negative) Urine Bilirubin (Negative) Urine Urobilinogen (Less than 2) mg/dL Ur Leukocyte Esterase (Negative) Urine RBC (0-3) /hpf Urine WBC (0-5) /hpf Ur Squamous Epith Cells (0-5) /hpf Hyaline Casts (0-3) /lpf Micro UA Comment Ur Microscopic Review Urine Culture Comments Blood Type O Positive Blood Type Recheck Not needed Antibody Screen Negative MTS Gel Crossmatch See Detail 08/10/18 08/10/18 08/10/18 Range/Units 01:05 06:21 08:51 WBC (4.0-11.0) th/mm3 RBC (4.00-5.30) mil/mm3 Hgb 8.9 L 8.6 L (11.6-15.3) gm/dL Hct 26.2 L 25.5 L (35.0-46.0) % MCV (80.0-100.0) fL MCH (27.0-34.0) pg MCHC (32.0-36.0) % RDW (11.6-17.2) % Plt Count (150-450) th/mm3 MPV (7.0-11.0) fL Neut % (Auto) (16.0-70.0) % Lymph % (Auto) (9.0-44.0) % Sully % (Auto) (0.0-8.0) % Eos % (Auto) (0.0-4.0) % Baso % (Auto) (0.0-2.0) % Neut # (Auto) (1.8-7.7) th/mm3 Lymph # (Auto) (1.0-4.8) th/mm3 Sully # (Auto) (0.0-0.9) th/mm3 Eos # (Auto) (0.0-0.4) th/mm3 Baso # (Auto) (0.0-0.2) th/mm3 WBC Differential Differential Comment PT (9.8-11.6) sec INR Ratio APTT (23.4-31.7) sec Sodium (136-145) meq/L Potassium (3.5-5.1) meq/L Chloride (98-107) meq/L Carbon Dioxide (21.0-32.0) meq/L Anion Gap (5-15) meq/L BUN (7-18) mg/dL Creatinine (0.50-1.00) mg/dL Estimated GFR (>89) mL/min Random Glucose (74-106) mg/dL Calcium (8.5-10.1) mg/dL Magnesium (1.5-2.5) mg/dL Total Bilirubin (0.2-1.0) mg/dL AST (15-37) U/L ALT (10-53) U/L Alkaline Phosphatase (45-117) U/L Ammonia (11-32) mcmol/L Troponin I (0.02-0.05) ng/mL Total Protein (6.4-8.2) g/dL Albumin (3.4-5.0) g/dL Lipase (73-393) U/L Urine Color Yellow (Yellw/Straw) Urine Clarity Hazy H (Clear) Urine pH 5.0 (5.0-8.5) Ur Specific Tyler 1.017 (1.002-1.035) Urine Protein Negative (Neg-Trace) mg/dL Urine Glucose (UA) Negative (Negative) mg/dL Urine Ketones Negative (Negative) mg/dL Urine Occult Blood Negative (Negative) Urine Nitrate Negative (Negative) Urine Bilirubin Negative (Negative) Urine Urobilinogen Less than 2 (Less than 2) mg/dL Ur Leukocyte Esterase Moderate H (Negative) Urine RBC 1 (0-3) /hpf Urine WBC 12 H (0-5) /hpf Ur Squamous Epith Cells 2 (0-5) /hpf Hyaline Casts 8 (0-3) /lpf Micro UA Comment Culture indicated Ur Microscopic Review Not Reportable Urine Culture Comments Culture indicated Blood Type Blood Type Recheck Antibody Screen MTS Gel Crossmatch 08/10/18 Range/Units 17:43 WBC (4.0-11.0) th/mm3 RBC (4.00-5.30) mil/mm3 Hgb 9.0 L (11.6-15.3) gm/dL Hct 26.0 L (35.0-46.0) % MCV (80.0-100.0) fL MCH (27.0-34.0) pg MCHC (32.0-36.0) % RDW (11.6-17.2) % Plt Count (150-450) th/mm3 MPV (7.0-11.0) fL Neut % (Auto) (16.0-70.0) % Lymph % (Auto) (9.0-44.0) % Sully % (Auto) (0.0-8.0) % Eos % (Auto) (0.0-4.0) % Baso % (Auto) (0.0-2.0) % Neut # (Auto) (1.8-7.7) th/mm3 Lymph # (Auto) (1.0-4.8) th/mm3 Sully # (Auto) (0.0-0.9) th/mm3 Eos # (Auto) (0.0-0.4) th/mm3 Baso # (Auto) (0.0-0.2) th/mm3 WBC Differential Differential Comment PT (9.8-11.6) sec INR Ratio APTT (23.4-31.7) sec Sodium (136-145) meq/L Potassium (3.5-5.1) meq/L Chloride (98-107) meq/L Carbon Dioxide (21.0-32.0) meq/L Anion Gap (5-15) meq/L BUN (7-18) mg/dL Creatinine (0.50-1.00) mg/dL Estimated GFR (>89) mL/min Random Glucose (74-106) mg/dL Calcium (8.5-10.1) mg/dL Magnesium (1.5-2.5) mg/dL Total Bilirubin (0.2-1.0) mg/dL AST (15-37) U/L ALT (10-53) U/L Alkaline Phosphatase (45-117) U/L Ammonia (11-32) mcmol/L Troponin I (0.02-0.05) ng/mL Total Protein (6.4-8.2) g/dL Albumin (3.4-5.0) g/dL Lipase (73-393) U/L Urine Color (Yellw/Straw) Urine Clarity (Clear) Urine pH (5.0-8.5) Ur Specific Tyler (1.002-1.035) Urine Protein (Neg-Trace) mg/dL Urine Glucose (UA) (Negative) mg/dL Urine Ketones (Negative) mg/dL Urine Occult Blood (Negative) Urine Nitrate (Negative) Urine Bilirubin (Negative) Urine Urobilinogen (Less than 2) mg/dL Ur Leukocyte Esterase (Negative) Urine RBC (0-3) /hpf Urine WBC (0-5) /hpf Ur Squamous Epith Cells (0-5) /hpf Hyaline Casts (0-3) /lpf Micro UA Comment Ur Microscopic Review Urine Culture Comments Blood Type Blood Type Recheck Antibody Screen MTS Gel Crossmatch Imaging Data Radiologist's impression: Chest X-Ray 08/09/18 23:34 CONCLUSION: No acute intracranial abnormality Abdomen/Pelvis CT 08/10/18 00:46 CONCLUSION: 1. Cirrhosis with splenomegaly and minimal ascites. 2. Diverticulosis without diverticulitis. 3. Stomach is distended and contains fluid/debris. 4. 1 cm nodule right lower lobe, stable. Follow-up CT chest in 6 months recommended for stability. Discharge Plan Discharge Disposition Patient Disposition: ED Admit(ED Internal Use Only) Discharge Order Discharge Orders: ED Use Only Admit Order (Routine); Ordered 08/10/18 Ordered By: Charity Tena Discharge Details Diagnosis: GI bleed Physicians Team ED Provider: Charity Tena Primary Care Provider: Primary Care Zak,Katrina Attending Provider: Malena Orellana Other Providers: Isaias Monzon V Status ED Status: Left Department Discharge Information Discharge Date/Time: 08/10/18 04:42
[2018-08-10] MEDS ORDERED: Sodium Chlor 0.9% Inj 250 ML IV.SIG SCH (01:00)
[2018-08-10 01:33] LABS: Bilirubin,Urine Negative (Negative); Clarity,Urine Hazy (Clear); Color,Urine Yellow (Yellw/Straw); Glucose,Urine (UA) Negative (Negative); Hyaline Casts,Urine 8 /lpf (0-3); Leukocyte Esterase,Urine Moderate (Negative); Nitrite,Urine Negative (Negative); Specific Gravity,Urine 1.017 (1.002-1.035); Squamous Epithelial Cell,Urine 2 /hpf (0-5)
--- NOTE | 2018-08-10 01:44 | CT ---
EXAM DATE: 08/10/2018 1:35 AM EST AGE/SEX: 72 years / Female INDICATIONS: Patient complains of abdominal pain worsening in the past few days. Vomiting blood X o ne month. CLINICAL DATA: This is the patient's initial encounter. Patient reports that signs and symptoms have been present for 1 month and indicates a pain score of 6/10. MEDICAL/SURGICAL HISTORY: Hepatitis A. Cirrhosis. Hysterectomy. Cholecystectomy. back surgery ORAL CONTRAST: No oral contrast ingested. RADIATION DOSE: 6.71 CTDI (mGy) COMPARISON: [facility] – [place] ABDOMEN & PELVIS W CONTRAST, 01/14/2018. . TECHNIQUE: Multiple contiguous axial images were obtained through the abdomen and pelvis following b olus infusion of 80 ml Omnipaque 350 (iohexol) nonionic water-soluble contrast as a single exam dos e. No oral contrast ingested. Using automated exposure control and adjustment of the mA and/or kV ac cording to patient size, radiation dose was kept as low as reasonably achievable to obtain optimal di agnostic quality images. DICOM format image data is available electronically for review and comparis on. FINDINGS: Lower Lungs: The visualized lower lungs are clear. A 10 mm nodule right lower lobe is seen. Liver: The liver is nodular without space-occupying lesion. There is no dilation of the biliary tree. Minimal ascites. Spleen: Homogeneous density with mild enlargement. Pancreas: Unremarkable without mass or calcification. Kidneys: Normal in size and shape. No evidence of mass or hydronephrosis. Adrenal Glands: Unremarkable. Aorta: The aorta and proximal iliac vessels are grossly unremarkable without aneurysmal dilation. Bowel/Mesentery: Diverticulosis with: Without diverticulitis. Mild distention of the stomach contain ing fluid/debris. Abdominal Wall: Intact. Retroperitoneum: No evidence of adenopathy in the retrocrural, para-aortic, or deep pelvic regions. Bladder: Contours are smooth. Reproductive Organs: No abnormal masses or calcifications seen. Inguinal: The inguinal region is unremarkable without evidence of adenopathy. Bony Structures: Scoliosis of the thoracolumbar spine and degenerative changes. CONCLUSION: 1. Cirrhosis with splenomegaly and minimal ascites. 2. Diverticulosis without diverticulitis. 3. Stomach is distended and contains fluid/debris. 4. 1 cm nodule right lower lobe, stable. Follow-up CT chest in 6 months recommended for stability. Electronically signed by: Karan Echavarria MD Board Certified Radiologist 08/10/2018 1:43 AM EST
[2018-08-10 06:38] LABS: Hematocrit 26.2 % (35.0-46.0); Hemoglobin 8.9 gm/dL (11.6-15.3)
[2018-08-10] MEDS: Sod Chloride 0.9% Inj 1,000 ML IV.CONT SCH ×5 (06:41→21:48)
[2018-08-10 09:22] LABS: Hematocrit 25.5 % (35.0-46.0); Hemoglobin 8.6 gm/dL (11.6-15.3)
--- NOTE | 2018-08-10 12:12 | P.CONGI ---
History of Present Illness Consult date: 08/10/18 Consult reason: GI bleed History of liver disease Chief complaint: GI Bleed History of Present Illness: This patient is a pleasant 72-year-old female with past medical history significant for cirrhosis and hepatitis A. Patient also has medical history of prior alcohol abuse. Surgical history significant for hysterectomy, back surgery, knee replacement and cholecystectomy. Patient presented to [facility] emergency room overnight with report of generalized weakness and melena stools with one episode of coffee-ground emesis. Patient spouse reports blood clots noted in emesis as well. Patient's past history includes liver cirrhosis and peptic ulcer disease with varices. Family reports patient had variceal bleeds banded at the [facility] 2 weeks ago. Prior to that she had variceal bleeding banded in April 2018. Of note, patient is currently being followed as a patient at the [facility] in [place] for possible liver transplant. Patient was due to have both EGD and colonoscopy done today at the [facility] and was prepping for same yesterday with Varun. Patient states her cirrhosis is related to her prior history of hepatitis a and prior alcohol use. Patient states that she stopped drinking alcohol 2 years ago. Patient denies any use of anti- inflammatory drugs, NSAIDs, blood thinners. States that she was instructed by her physicians at the [facility] to utilize Tylenol for any issues with pain. Hemoglobin 7.9 hematocrit 23.7 on arrival. This a.m. hemoglobin 8.6 and hematocrit 25.5. Patient has had no further episodes of bleeding. Patient currently on octreotide and pantoprazole drip. Last EGD performed April 2018 at the [facility] in [place] revealed varices that were banded. Colonoscopy at that time revealed poor prep and patient was rescheduled to have same done today. Again, patient endorses the cessation of alcohol use times 2 years and states she quit smoking 47 years ago. Our service has been consulted to evaluate patient for GI bleeding in the presence of cirrhotic history. Review of Systems All other systems reviewed negative except as stated in HPI PMFSH - History History Provided By: Patient, Medical Record - Medical History Medical History: Medical History (Last Reviewed 01/19/18 @ 19:43 by Sussy Kat RN) Cirrhosis of liver H/O: hysterectomy Hepatitis A - Surgical History Surgical History: Surgical History (Last Reviewed 01/19/18 @ 19:43 by Sussy Kat RN) History of back surgery History of left knee replacement Hx of cholecystectomy - Tobacco History Second Hand Smoke Exposure: No Tobacco Use In Past 30 Days: No Smoking Status: Former smoker - Alcohol History How Often Do You Have a Drink Containing Alcohol: Never - Substance Use History Substance History: No History of Abuse - Travel History Recent Travel in the [place] Within the Last 8 Weeks: No Recent Travel Out of the Country Within the Last 8 Weeks: No - Immunization History Tetanus Immunization: Unsure Hx Influenza Vaccine This Season: Yes Medications and Allergies Active Medications: Active Medications Octreotide Acetate 500 mcg/ (Sodium Chloride) 500.5 mls @ 50.05 mls/hr IV.CONT .Q10H SHARAN Last Admin: 08/10/18 00:41 Dose: 50 mcg/hr, 50.05 mls/hr Sodium Chloride (Ns Inj) 1,000 mls @ 125 mls/hr IV.CONT .Q8H SHARAN Last Admin: 08/10/18 09:42 Dose: 125 mls/hr Pantoprazole Sodium 80 mg/ (Sodium Chloride) 100 mls @ 10 mls/hr IV.CONT CONT SHARAN Last Admin: 08/10/18 00:41 Dose: 10 mls/hr Sodium Chloride (Ns Inj) 250 mls @ 15 mls/hr IV.SIG ONCE SHARAN Stop: 08/10/18 17:39 Last Admin: 08/10/18 03:04 Dose: 15 mls/hr Sodium Chloride (Ns Inj) 1,000 mls @ 100 mls/hr IV.CONT .Q10H SHARAN Last Admin: 08/10/18 06:41 Dose: Not Given Ceftriaxone Sodium 1,000 mg/ (Sodium Chloride) 100 mls @ 200 mls/hr IV.SIG Q24H SHARAN Sodium Chloride (Ns Flush) 2 ml IV.FLUSH PRN PRN PRN Reason: FLUSH AFTER USING IV ACCESS Sodium Chloride (Ns Flush) 2 ml IV.FLUSH BID SHARAN Last Admin: 08/10/18 09:42 Dose: Not Given Sodium Chloride (Ns Flush) 2 ml IV.FLUSH PRN PRN PRN Reason: FLUSH AFTER USING IV ACCESS Allergies Allergy/AdvReac Type Severity Reaction Status Date / Time No Known Allergies Allergy Verified 08/09/18 23:23 Home Medications Medication Instructions Recorded Confirmed Type amantadine HCl 100 mg PO BID 01/12/18 08/09/18 History furosemide 80 mg PO DAILY 01/12/18 08/09/18 History lactulose 10 g PO BID 01/12/18 08/09/18 History sertraline 50 mg PO DAILY 01/12/18 08/09/18 History spironolactone 200 mg PO DAILY 01/12/18 08/09/18 History valacyclovir 1,000 mg PO BID 01/12/18 08/09/18 History Exam Vital signs: Vital Signs 08/09/18 23:18 08/09/18 23:37 08/09/18 23:38 Temperature 97.6 F Pulse Rate 90 103 H Respiratory Rate 18 Blood Pressure 127/60 Pulse Oximetry 96 100 08/09/18 23:39 08/10/18 00:42 08/10/18 02:37 Temperature 98.0 F Pulse Rate 84 93 H Respiratory Rate 16 15 Blood Pressure 94/51 L 147/63 H Pulse Oximetry 100 96 97 08/10/18 02:53 08/10/18 02:57 08/10/18 03:53 Temperature 98.2 F 98.2 F 97.9 F Pulse Rate 95 H 95 H 106 H Respiratory Rate 16 16 19 Blood Pressure 133/62 133/62 140/65 Pulse Oximetry 99 99 99 08/10/18 04:00 08/10/18 07:00 08/10/18 07:36 Temperature 97.9 F Pulse Rate 92 H 97 H Respiratory Rate 16 Blood Pressure 125/60 Pulse Oximetry 100 93 L 08/10/18 08:00 08/10/18 09:36 08/10/18 11:00 Temperature 97.9 F Pulse Rate 83 83 95 H Respiratory Rate 16 Blood Pressure 126/58 L Pulse Oximetry 99 Intake & Output 08/09/18 08/10/18 08/10/18 18:59 06:59 18:59 Intake Total 550 / 550 1000 / 1000 Balance 550 / 550 1000 / 1000 Weight 54.3 kg Intake: IV 150 / 150 1000 / 1000 NS Inj 1,000 ML @ 125 mls/hr IV 1000 / 1000 .CONT .Q8H SHARAN Rx#:[id number] Protonix Inj 80 MG In NS Inj 50 50 / 50 ML @ 600 mls/hr IV.SIG BOLUS ONE Rx#:[id number] Rocephin Inj 1,000 MG In NS Inj 100 / 100 100 ML @ 200 mls/hr IV.SIG ONCE ONE Rx#:[id number] Intake (Blood Product) Amt 400 / 400 Rbc As-3 Leukoreduced Unit 400 / 400 [id number] Other: Date of Last Bowel Movement 08/10/18 Weight On Admission 54.5 kg - Constitutional no acute distress, chronically ill appearing, cooperative - Routine HEENT Exam Head: Present: normocephalic Eye: Absent: conjunctival icterus ENT: Present: mucous membranes moist - Routine Neck Exam Present: supple, trachea midline - Routine Respiratory Exam Present: CTA bilaterally. Absent: accessory muscle use - Routine Cardiovascular Exam Present: RRR, S1, S2 - Routine Abdominal Exam Present: soft, normoactive bowel sounds. Absent: tenderness, distended, guarding, firm - Routine Extremities Exam Absent: edema - Routine Skin Exam Present: dry, warm. Absent: pallor - Routine Neurological Exam Present: alert, oriented X3 Results - Labs CBC & Chem 7: 08/10/18 08:51 08/09/18 23:50 Labs: Laboratory Results - last 24 hr 08/09/18 08/09/18 08/09/18 23:50 23:50 23:50 WBC 7.6 RBC 2.82 L Hgb 7.9 L Hct 23.7 L MCV 84.1 MCH 28.2 MCHC 33.5 RDW 20.0 H Plt Count 111 L MPV 8.1 Neut % (Auto) 76.7 H Lymph % (Auto) 12.6 Parker % (Auto) 10.1 H Eos % (Auto) 0.1 Baso % (Auto) 0.5 Neut # (Auto) 5.8 Lymph # (Auto) 1.0 Parker # (Auto) 0.8 Eos # (Auto) 0.0 Baso # (Auto) 0.0 WBC Differential . Differential Comment Auto diff final PT 13.6 H INR 1.3 APTT 27.2 Sodium 130 L Potassium 4.4 Chloride 94 L Carbon Dioxide 24.9 Anion Gap 11 BUN 66 H Creatinine 0.98 Estimated GFR 56 L Random Glucose 159 H Calcium 8.3 L Magnesium 2.1 Total Bilirubin 1.1 H AST 47 H ALT 43 Alkaline Phosphatase 108 Ammonia Troponin I 0.03 Total Protein 6.8 Albumin 2.9 L Lipase 347 Urine Color Urine Clarity Urine pH Ur Specific [place] Urine Protein Urine Glucose (UA) Urine Ketones Urine Occult Blood Urine Nitrate Urine Bilirubin Urine Urobilinogen Ur Leukocyte Esterase Urine RBC Urine WBC Ur Squamous Epith Cells Hyaline Casts Micro UA Comment Ur Microscopic Review Urine Culture Comments Blood Type Blood Type Recheck Antibody Screen MTS Gel Crossmatch 08/09/18 08/09/18 08/10/18 23:50 23:50 00:42 WBC RBC Hgb Hct MCV MCH MCHC RDW Plt Count MPV Neut % (Auto) Lymph % (Auto) Parker % (Auto) Eos % (Auto) Baso % (Auto) Neut # (Auto) Lymph # (Auto) Parker # (Auto) Eos # (Auto) Baso # (Auto) WBC Differential Differential Comment PT INR APTT Sodium Potassium Chloride Carbon Dioxide Anion Gap BUN Creatinine Estimated GFR Random Glucose Calcium Magnesium Total Bilirubin AST ALT Alkaline Phosphatase Ammonia 55 H Troponin I Total Protein Albumin Lipase Urine Color Urine Clarity Urine pH Ur Specific [place] Urine Protein Urine Glucose (UA) Urine Ketones Urine Occult Blood Urine Nitrate Urine Bilirubin Urine Urobilinogen Ur Leukocyte Esterase Urine RBC Urine WBC Ur Squamous Epith Cells Hyaline Casts Micro UA Comment Ur Microscopic Review Urine Culture Comments Blood Type O Positive Blood Type Recheck Not needed Antibody Screen Negative MTS Gel Crossmatch See Detail 08/10/18 08/10/18 08/10/18 01:05 06:21 08:51 WBC RBC Hgb 8.9 L 8.6 L Hct 26.2 L 25.5 L MCV MCH MCHC RDW Plt Count MPV Neut % (Auto) Lymph % (Auto) Parker % (Auto) Eos % (Auto) Baso % (Auto) Neut # (Auto) Lymph # (Auto) Parker # (Auto) Eos # (Auto) Baso # (Auto) WBC Differential Differential Comment PT INR APTT Sodium Potassium Chloride Carbon Dioxide Anion Gap BUN Creatinine Estimated GFR Random Glucose Calcium Magnesium Total Bilirubin AST ALT Alkaline Phosphatase Ammonia Troponin I Total Protein Albumin Lipase Urine Color Yellow Urine Clarity Hazy H Urine pH 5.0 Ur Specific [place] 1.017 Urine Protein Negative Urine Glucose (UA) Negative Urine Ketones Negative Urine Occult Blood Negative Urine Nitrate Negative Urine Bilirubin Negative Urine Urobilinogen Less than 2 Ur Leukocyte Esterase Moderate H Urine RBC 1 Urine WBC 12 H Ur Squamous Epith Cells 2 Hyaline Casts 8 Micro UA Comment Culture indicated Ur Microscopic Review Not Reportable Urine Culture Comments Culture indicated Blood Type Blood Type Recheck Antibody Screen MTS Gel Crossmatch - Imaging Impressions Chest X-Ray 08/09/18 23:34 CONCLUSION: No acute intracranial abnormality Abdomen/Pelvis CT 08/10/18 00:46 CONCLUSION: 1. Cirrhosis with splenomegaly and minimal ascites. 2. Diverticulosis without diverticulitis. 3. Stomach is distended and contains fluid/debris. 4. 1 cm nodule right lower lobe, stable. Follow-up CT chest in 6 months recommended for stability. Assessment and Plan (1) Upper gastrointestinal hemorrhage Status: Acute Code(s): K92.2 - Gastrointestinal hemorrhage, unspecified (2) GI bleed Status: Acute Code(s): K92.2 - Gastrointestinal hemorrhage, unspecified - Plan This patient is a pleasant 72-year-old female with past medical history significant for cirrhosis and hepatitis A. Patient also has medical history of prior alcohol abuse. Surgical history significant for hysterectomy, back surgery, knee replacement and cholecystectomy. Patient presented to [facility] emergency room overnight with report of generalized weakness and melena stools with one episode of coffee-ground emesis. Patient spouse reports blood clots noted in emesis as well. Patient's past history includes liver cirrhosis and peptic ulcer disease with varices. Family reports patient had variceal bleeds banded at the [facility] 2 weeks ago. Prior to that she had variceal bleeding banded in April 2018. Of note, patient is currently being followed as a patient at the [facility] in [place] for possible liver transplant. Patient was due to have both EGD and colonoscopy done today at the [facility] and was prepping for same yesterday with GoLJENNYLY. Patient states her cirrhosis is related to her prior history of hepatitis a and prior alcohol use. Patient states that she stopped drinking alcohol 2 years ago. Patient denies any use of anti- inflammatory drugs, NSAIDs, blood thinners. States that she was instructed by her physicians at the [facility] to utilize Tylenol for any issues with pain. Hemoglobin 7.9 hematocrit 23.7 on arrival. This a.m. hemoglobin 8.6 and hematocrit 25.5. Patient has had no further episodes of bleeding. Patient currently on octreotide and pantoprazole drip. Last EGD performed April 2018 at the [facility] in [place] revealed varices that were banded. Colonoscopy at that time revealed poor prep and patient was rescheduled to have same done today. Again, patient endorses the cessation of alcohol use times 2 years and states she quit smoking 47 years ago. Our service has been consulted to evaluate patient for GI bleeding in the presence of cirrhotic history. GI bleed Coffee-ground emesis History of cirrhosis and hepatitis A Melena stools History of peptic ulcer disease and esophageal varices Patient presents to [facility] history of cirrhosis and hepatitis A. Patient endorses generalized weakness with melanotic stools and one episode of coffee-ground emesis. Patient has history of esophageal varices with banding most recent done 2 weeks ago at the [facility]. Last EGD performed 2017 at the [facility] in [place] revealed varices that were banded. 01/13/2018 EGD revealed the following : ESOPHAGUS: There were 2 columns of small varices in the distal esophagus. There was evidence of prior scarring. STOMACH: There was erythematous moderate gastritis in the gastric antrum. A biopsy was performed using cold forceps. Sample sent for histology. Moderate portal hypertensive gastropathy was found in the gastric antrum and gastric fundus. DUODENUM: The duodenal mucosa appeared normal in the bulb and second portion of the duodenum. WBC 7.6 hemoglobin 8.6 hematocrit 25.5 INR 1.3 Total bilirubin 1.1 AST 47 ALT 43 alk phos 108 ammonia 55 Plan -N.p.o. -Obtain consent for EGD -Monitor for active bleeding -Monitor hemoglobin hematocrit -Octreotide infusion at 50 mcg/h -Pantoprazole infusion -Avoid anticoagulants -Avoid NSAIDs -Avoid hepatotoxins -Resume home medications including lactulose propranolol and diuretics -Supportive care -Further recommendations to follow This patient has been seen by myself and this note is written on his back - Attending Attestation Dr. Monzon (2) GI bleed Qualifiers: GI bleed type/associated pathology: unspecified gastrointestinal hemorrhage type Qualified Code(s): K92.2 - Gastrointestinal hemorrhage, unspecified
--- NOTE | 2018-08-10 12:28 | P.PNIM ---
Physical Exam Vital signs: Vital Signs 08/09/18 23:18 08/09/18 23:37 08/09/18 23:38 Temperature 97.6 F Pulse Rate 90 103 H Respiratory Rate 18 Blood Pressure 127/60 Pulse Oximetry 96 100 08/09/18 23:39 08/10/18 00:42 08/10/18 02:37 Temperature 98.0 F Pulse Rate 84 93 H Respiratory Rate 16 15 Blood Pressure 94/51 L 147/63 H Pulse Oximetry 100 96 97 08/10/18 02:53 08/10/18 02:57 08/10/18 03:53 Temperature 98.2 F 98.2 F 97.9 F Pulse Rate 95 H 95 H 106 H Respiratory Rate 16 16 19 Blood Pressure 133/62 133/62 140/65 Pulse Oximetry 99 99 99 08/10/18 04:00 08/10/18 07:00 08/10/18 07:36 Temperature 97.9 F Pulse Rate 92 H 97 H Respiratory Rate 16 Blood Pressure 125/60 Pulse Oximetry 100 93 L 08/10/18 08:00 08/10/18 09:36 08/10/18 11:00 Temperature 97.9 F Pulse Rate 83 83 95 H Respiratory Rate 16 Blood Pressure 126/58 L Pulse Oximetry 99 08/10/18 12:00 Temperature 97.8 F Pulse Rate 95 H Respiratory Rate 16 Blood Pressure 131/68 Pulse Oximetry 100 Intake & Output 08/09/18 08/10/18 08/10/18 18:59 06:59 18:59 Intake Total 550 / 550 1600.5 / 1600.5 Balance 550 / 550 1600.5 / 1600.5 Weight 54.3 kg Intake: IV 150 / 150 1600.5 / 1600.5 SandoSTATIN Inj 500 MCG In NS 500.5 / 500.5 Inj 500 ML @ 50 MCG/HR 50.05 mls/hr IV.CONT .Q10H SHARAN Rx#: [id number] Protonix Inj 80 MG In NS Inj 100 / 100 100 ML @ 10 mls/hr IV.CONT CONT SHARAN Rx#:[id number] NS Inj 1,000 ML @ 125 mls/hr IV 1000 / 1000 .CONT .Q8H SHARAN Rx#:[id number] Protonix Inj 80 MG In NS Inj 50 50 / 50 ML @ 600 mls/hr IV.SIG BOLUS ONE Rx#:[id number] Rocephin Inj 1,000 MG In NS Inj 100 / 100 100 ML @ 200 mls/hr IV.SIG ONCE ONE Rx#:[id number] Intake (Blood Product) Amt 400 / 400 Rbc As-3 Leukoreduced Unit 400 / 400 [id number] Other: Date of Last Bowel Movement 08/10/18 08/10/18 Weight On Admission 54.5 kg Results Labs CBC & Chem 7: 08/10/18 08:51 08/09/18 23:50 Labs: Microbiology 08/10/18 01:05 Clean Catch Urine Urine Culture - Preliminary Results Pending Imaging Imaging: Impressions Chest X-Ray 08/09/18 23:34 CONCLUSION: No acute intracranial abnormality Abdomen/Pelvis CT 08/10/18 00:46 CONCLUSION: 1. Cirrhosis with splenomegaly and minimal ascites. 2. Diverticulosis without diverticulitis. 3. Stomach is distended and contains fluid/debris. 4. 1 cm nodule right lower lobe, stable. Follow-up CT chest in 6 months recommended for stability. Assessment and Plan (1) Upper gastrointestinal hemorrhage: Code(s): K92.2 - Gastrointestinal hemorrhage, unspecified Status: Acute (2) GI bleed: Code(s): K92.2 - Gastrointestinal hemorrhage, unspecified Status: Acute Progress Note: Quality VTE Deep Vein Thrombosis/Pulmonary Embolism Present on Admission: No _ (1) GI bleed Qualifiers: GI bleed type/associated pathology: unspecified gastrointestinal hemorrhage type Gastritis type: Qualified Code(s): K92.2 - Gastrointestinal hemorrhage, unspecified
--- NOTE | 2018-08-10 13:55 | P.HPIM ---
History of Present Illness Primary Care Physician: No Primary Care Physician Chief Complaint: black stool History of Present Illness: This patient is a pleasant 72-year-old female with past medical history significant for cirrhosis and hepatitis A. Patient also has medical history of prior alcohol abuse. Surgical history significant for hysterectomy, back surgery, knee replacement and cholecystectomy. Patient presented to [facility] emergency room overnight with report of generalized weakness and melena stools with one episode of coffee-ground emesis. Patient spouse reports blood clots noted in emesis as well. Patient's past history includes liver cirrhosis and peptic ulcer disease with varices. Family reports patient had variceal bleeds banded at the [facility] 2 weeks ago. Prior to that she had variceal bleeding banded in April 2018. Of note, patient is currently being followed as a patient at the [facility] in [place] for possible liver transplant. Patient was due to have both EGD and colonoscopy done today at the [facility] and was prepping for same yesterday with Varun. Patient states her cirrhosis is related to her prior history of hepatitis a and prior alcohol use. Patient states that she stopped drinking alcohol 2 years ago. Patient denies any use of anti- inflammatory drugs, NSAIDs, blood thinners. States that she was instructed by her physicians at the [facility] to utilize Tylenol for any issues with pain. Hemoglobin 7.9 hematocrit 23.7 on arrival. This a.m. hemoglobin 8.6 and hematocrit 25.5. Patient has had no further episodes of bleeding. Patient currently on octreotide and pantoprazole drip. Last EGD performed April [address] [facility] in [place] revealed varices that were banded. Colonoscopy at that time revealed poor prep and patient was rescheduled to have same done today. Cessation of alcohol use 2 years ago and states she quit smoking 47 years ago. The patient is tired. Diagnosis (1) Upper gastrointestinal hemorrhage: (2) GI bleed: Inpatient Certification Inpatient Certification: I certify that the inpatient services were ordered in accordance with Medicare regulations governing the order. This includes certification that hospital inpatient services are reasonable and necessary and in the case of services not specified as inpatient-only under 42 CFR 419.22(n), that they are appropriately provided as inpatient services in accordance to with the 2-midnight benchmark under 43 CFR 412.3(e) Estimated Total Length of Stay (Days): 2 Plans for Post Hospital Care: Home Review of Systems Review of Systems: all other systems reviewed are negative [facility] Medical History Medical History Cirrhosis of liver (Acute) H/O: hysterectomy (Acute) Hepatitis A (Acute) Surgical History Surgical History History of back surgery (Acute) History of left knee replacement (Acute) Hx of cholecystectomy (Acute) Social History Social History Substance History: No History of Abuse Second Hand Smoke Exposure: No Smoking Status: Former smoker How Often Do You Have a Drink Containing Alcohol: Never Recent Travel in [place] within the Last 8 Weeks: No Recent Out of Country Travel within the Last 8 Weeks: No Immunization History Tetanus Immunization: Unsure Hx Influenza Vaccine This Season: Yes Medications and Allergies Allergies Allergy/AdvReac Type Severity Reaction Status Date / Time No Known Allergies Allergy Verified 08/09/18 23:23 Home Medications Medication Instructions Recorded Confirmed Type amantadine HCl 100 mg PO BID 01/12/18 08/09/18 History furosemide 80 mg PO DAILY 01/12/18 08/09/18 History lactulose 10 g PO BID 01/12/18 08/09/18 History sertraline 50 mg PO DAILY 01/12/18 08/09/18 History spironolactone 200 mg PO DAILY 01/12/18 08/09/18 History valacyclovir 1,000 mg PO BID 01/12/18 08/09/18 History Active Medications: Active Medications Octreotide Acetate 500 mcg/ (Sodium Chloride) 500.5 mls @ 50.05 mls/hr IV.CONT .Q10H SHARAN Last Admin: 08/10/18 12:17 Dose: 50 mcg/hr, 50.05 mls/hr Sodium Chloride (Ns Inj) 1,000 mls @ 125 mls/hr IV.CONT .Q8H SHARAN Last Admin: 08/10/18 09:42 Dose: 125 mls/hr Pantoprazole Sodium 80 mg/ (Sodium Chloride) 100 mls @ 10 mls/hr IV.CONT CONT SHARAN Last Infusion: 08/10/18 12:17 Dose: Infused Sodium Chloride (Ns Inj) 250 mls @ 15 mls/hr IV.SIG ONCE SHARAN Stop: 08/10/18 17:39 Last Admin: 08/10/18 03:04 Dose: 15 mls/hr Sodium Chloride (Ns Inj) 1,000 mls @ 100 mls/hr IV.CONT .Q10H SHARAN Last Admin: 08/10/18 12:17 Dose: 100 mls/hr Ceftriaxone Sodium 1,000 mg/ (Sodium Chloride) 100 mls @ 200 mls/hr IV.SIG Q24H [facility] Sodium Chloride (Ns Flush) 2 ml IV.FLUSH PRN PRN PRN Reason: FLUSH AFTER USING IV ACCESS Sodium Chloride (Ns Flush) 2 ml IV.FLUSH BID SHARAN Last Admin: 08/10/18 09:42 Dose: Not Given Sodium Chloride (Ns Flush) 2 ml IV.FLUSH PRN PRN PRN Reason: FLUSH AFTER USING IV ACCESS Physical Exam Vital signs: Vital Signs 08/09/18 23:18 08/09/18 23:37 08/09/18 23:38 Temperature 97.6 F Pulse Rate 90 103 H Respiratory Rate 18 Blood Pressure 127/60 Pulse Oximetry 96 100 08/09/18 23:39 08/10/18 00:42 08/10/18 02:37 Temperature 98.0 F Pulse Rate 84 93 H Respiratory Rate 16 15 Blood Pressure 94/51 L 147/63 H Pulse Oximetry 100 96 97 08/10/18 02:53 08/10/18 02:57 08/10/18 03:53 Temperature 98.2 F 98.2 F 97.9 F Pulse Rate 95 H 95 H 106 H Respiratory Rate 16 16 19 Blood Pressure 133/62 133/62 140/65 Pulse Oximetry 99 99 99 08/10/18 04:00 08/10/18 07:00 08/10/18 07:36 Temperature 97.9 F Pulse Rate 92 H 97 H Respiratory Rate 16 Blood Pressure 125/60 Pulse Oximetry 100 93 L 08/10/18 08:00 08/10/18 09:36 08/10/18 11:00 Temperature 97.9 F Pulse Rate 83 83 95 H Respiratory Rate 16 Blood Pressure 126/58 L Pulse Oximetry 99 08/10/18 12:00 08/10/18 13:00 Temperature 97.8 F Pulse Rate 95 H 90 Respiratory Rate 16 Blood Pressure 131/68 Pulse Oximetry 100 Intake & Output 0208/10/18 08/10/18 18:59 06:59 18:59 Intake Total 550 / 550 1600.5 / 1600.5 Balance 550 / 550 1600.5 / 1600.5 Weight 54.3 kg Intake: IV 150 / 150 1600.5 / 1600.5 SandoSTATIN Inj 500 MCG In NS 500.5 / 500.5 Inj 500 ML @ 50 MCG/HR 50.05 mls/hr IV.CONT .Q10H SHARAN Rx#: [id number] Protonix Inj 80 MG In NS Inj 100 / 100 100 ML @ 10 mls/hr IV.CONT CONT SHRAAN Rx#:[id number] NS Inj 1,000 ML @ 125 mls/hr IV 1000 / 1000 .CONT .Q8H SHARAN Rx#:[id number] Protonix Inj 80 MG In NS Inj 50 50 / 50 ML @ 600 mls/hr IV.SIG BOLUS ONE Rx#:[id number] Rocephin Inj 1,000 MG In NS Inj 100 / 100 100 ML @ 200 mls/hr IV.SIG ONCE ONE Rx#:[id number] Intake (Blood Product) Amt 400 / 400 Rbc As-3 Leukoreduced Unit 400 / 400 [id number] Other: Date of Last Bowel Movement 08/10/18 08/10/18 Weight On Admission 54.5 kg Results Labs CBC & Chem 7: 08/10/18 08:51 08/09/18 23:50 Imaging Impressions Chest X-Ray 08/09/18 23:34 CONCLUSION: No acute intracranial abnormality Abdomen/Pelvis CT 08/10/18 00:46 CONCLUSION: 1. Cirrhosis with splenomegaly and minimal ascites. 2. Diverticulosis without diverticulitis. 3. Stomach is distended and contains fluid/debris. 4. 1 cm nodule right lower lobe, stable. Follow-up CT chest in 6 months recommended for stability. Caprini VTE Risk Assessment Caprini VTE Risk Assessment: Moderate/High Risk (score >= 2) Caprini Risk Assessment Model: Point Value = 1 Point Value = 2 Point Value = 3 Point Value = 5 Age 41-60 Minor surgery BMI > 25 kg/m2 Swollen legs Varicose veins or History of unexplained or recurrent spontaneous Oral contraceptives or hormone replacement Sepsis (< 1 month) Serious lung disease, including pneumonia (< 1 month) Abnormal pulmonary function Acute myocardial infarction Congestive heart failure (< 1 month) History of inflammatory bowel disease Medical patient at bed rest Age 61-74 Arthroscopic surgery Major open surgery (> 45 min) Laparoscopic surgery (> 45 min) Malignancy Confined to bed (> 72 hours) Immobilizing plaster cast Central venous access Age >= 75 History of VTE Family history of VTE Factor V Leiden Prothrombin [id number] Lupus anticoagulant Anticardiolipin antibodies Elevated serum homocysteine Heparin-induced thrombocytopenia Other congenital or acquired thrombophilia Stroke (< 1 month) Elective arthroplasty Hip, pelvis, or leg fracture Acute spinal cord injury (< 1 month) Prophylaxis Regimen: Total Risk Factor Score Risk Level Prophylaxis Regimen 0-1 Low Early ambulation 2 Moderate Order ONE of the following: *Sequential Compression Device (SCD) *Heparin 5000 units SQ BID 3-4 Higher Order ONE of the following medications: *Heparin 5000 units SQ TID *Enoxaparin/Lovenox 40 mg SQ daily (WT < 150 kg, CrCl > 30 mL/min) *Enoxaparin/Lovenox 30 mg SQ daily (WT < 150 kg, CrCl > 10-29 mL/min) *Enoxaparin/Lovenox 30 mg SQ BID (WT < 150 kg, CrCl > 30 mL/min) AND/OR *Sequential Compression Device (SCD) 5 or more Highest Order ONE of the following medications: *Heparin 5000 units SQ TID (Preferred with Epidurals) *Enoxaparin/Lovenox 40 mg SQ daily (WT < 150 kg, CrCl > 30 mL/min) *Enoxaparin/Lovenox 30 mg SQ daily (WT < 150 kg, CrCl > 10-29 mL/min) *Enoxaparin/Lovenox 30 mg SQ BID (WT < 150 kg, CrCl > 30 mL/min) AND *Sequential Compression Device (SCD) Assessment and Plan (1) Upper gastrointestinal hemorrhage: Code(s): K92.2 - Gastrointestinal hemorrhage, unspecified Status: Acute (2) GI bleed: Code(s): K92.2 - Gastrointestinal hemorrhage, unspecified Status: Acute Plan Patient is a 72 yo F with PMh of Hep A, liver cirrhosis, EtOH use quit 2 years ago, presents with melena, generalized weakness and one episode of coffee- ground emesis. Patient has history of esophageal varices with banding most recent done [address] [facility]. Last EGD performed [address] [facility] in [place] revealed varices that were banded. GI consulted . EGD on 08/10/18 GI bleed Coffee-ground emesis History of cirrhosis and hepatitis A Melena stools History of peptic ulcer disease and esophageal varices 01/13/2018 EGD revealed the following : ESOPHAGUS: There were 2 columns of small varices in the distal esophagus. There was evidence of prior scarring. STOMACH: There was erythematous moderate gastritis in the gastric antrum. A biopsy was performed using cold forceps. Sample sent for histology. Moderate portal hypertensive gastropathy was found in the gastric antrum and gastric fundus. DUODENUM: The duodenal mucosa appeared normal in the bulb and second portion of the duodenum. -N.p.o. Plan for EGD per GI Dr Monzon -Monitor for active bleeding -Monitor hemoglobin hematocrit, and transfuse if HGB < 7 or if symptomatic - Monitor on tele -Octreotide infusion at 50 mcg/h -Pantoprazole infusion -Avoid anticoagulants -Avoid NSAIDs -Avoid hepatotoxins -With hypotension given IVF -Resume home medications including lactulose propranolol and diuretics if blood pressure permits DVT ppx avoid chemical ppx as patient with GIB Discussed with the patient. family at bedside, nurse H&P: Quality VTE Deep Vein Thrombosis/Pulmonary Embolism Present on Admission: No _ (1) GI bleed Qualifiers: GI bleed type/associated pathology: unspecified gastrointestinal hemorrhage type Gastritis type: Qualified Code(s): K92.2 - Gastrointestinal hemorrhage, unspecified
[2018-08-10] MEDS ORDERED: Normosol-R pH 7.4 Inj 1,000 ML IV.CONT ONE (13:59)
--- NOTE | 2018-08-10 14:48 | GIPROC ---
[facility] [address] [facility]. [facility], [address] EGD PROCEDURE REPORT EXAM DATE: 08/10/2018 PATIENT NAME: Court Pierce MR #: [id number] BIRTHDATE: 1945 ATTENDING: Isaias Monzon MD ORDER #: [id number] SHIFT MANAGER: Maren Jacob Stienbarger, Terrie, and Ruben Cutler STATUS: inpatient INDICATIONS: The patient is a 72 yr old female here for an EGD due to acute post hemorrhagic anemia, hematemesis, hematochezia, and Cirrhosis PROCEDURE PERFORMED: EGD w/ band ligation of varices MEDICATIONS: Per Anesthesia and None. TOPICAL ANESTHETIC: CONSENT: The patient understands the risks and benefits of the procedure and understands that these risks include, but are not limited to: sedation, allergic reaction, infection, perforation and/or bleeding. Alternative means of evaluation and treatment include, among others: physical exam, x-rays, and/or surgical intervention. The patient elects to proceed with this endoscopic procedure. medical equipment was checked for proper function. Hand hygiene and appropriate measures for infection prevention was taken. After the risks, benefits and alternatives of the procedure were thoroughly explained, Informed consent was verified, confirmed and timeout was successfully executed by the treatment team. The patient was anesthetized with topical anesthesia and the Pentax EG-[id number] endoscope was introduced through the mouth and advanced to the second portion of the duodenum. Retroflexed views revealed No gastric varices The gastroscope was then slowly withdrawn and removed. ESOPHAGUS: There were 4 columns of medium sized varices in the mid esophagus and distal esophagus. There was evidence of prior scarring. Fresh blood clots in antrum and fundus. STOMACH: Severe portal hypertensive gastropathy was found in the entire examined stomach. DUODENUM: The duodenal mucosa appeared normal in the entire duodenum. ADVERSE EVENTS: There were no complications. IMPRESSIONS: 1. Portal hypertensive gastropathy was found in the entire examined stomach 2. Fresh blood clots in antrum and fundus 3. Grd III vrices in mid and distal esophagus s/p EBLV 4. Retroflexed views revealed No gastric varices RECOMMENDATIONS: 1. Continue PPI 2. IV Octreotide Monitor labs Supportive tx PATIENT CONDITION: stable DISPOSITION: Inpatient REPEAT EXAM: Return as needed for EGD Isaias Monzon MD eSigned: Isaias Monzon MD 08/10/2018 2:47 PM cc: PATIENT NAME: Court Pierce MR#: [id number]
[2018-08-10] MEDS: Acetaminophen 325 MG Tablet PO PRN (20:26)
[2018-08-10] MEDS: rifAXIMin 550 MG Tablet PO SCH (20:26)
[2018-08-10 21:06] LABS: Hematocrit 26.2 % (35.0-46.0); Hemoglobin 8.7 gm/dL (11.6-15.3)
[2018-08-11] MEDS: Octreotide Inj 500 MCG in Sodium Chlor 0.9% Inj 500 ML IV.CONT SCH ×2 (06:16→17:00)
[2018-08-11] MEDS: Pantoprazole Inj 80 MG in Sodium Chlor 0.9% Inj 100 ML IV.CONT SCH ×2 (06:16→17:24)
[2018-08-11] MEDS: Sod Chloride 0.9% Inj 1,000 ML IV.CONT SCH ×3 (06:18→17:25)
[2018-08-11] MEDS: rifAXIMin 550 MG Tablet PO SCH ×2 (08:58→21:18)
[2018-08-11] MEDS: Acetaminophen 325 MG Tablet PO PRN ×2 (09:02→21:18)
--- NOTE | 2018-08-11 12:33 | P.PNGI ---
Subjective Interval history: Patient awake and alert Sitting up in bed Family present No further reported bleeding Post EGD Patient reports intermittent episodes of chills with lower abdominal discomfort which began prior to admission. Physical Exam Vital signs: Vital Signs 08/10/18 13:00 08/10/18 15:00 08/10/18 16:00 Temperature 98.2 F Pulse Rate 90 99 H 90 Respiratory Rate 16 Blood Pressure 125/60 Pulse Oximetry 99 08/10/18 17:00 08/10/18 19:00 08/10/18 20:00 Temperature 98.5 F Pulse Rate 94 H 94 H 94 H Respiratory Rate 16 Blood Pressure 126/60 Pulse Oximetry 99 08/10/18 21:00 08/10/18 22:00 08/10/18 23:00 Temperature Pulse Rate 92 H 90 94 H Respiratory Rate Blood Pressure Pulse Oximetry 08/11/18 00:00 08/11/18 01:00 08/11/18 02:00 Temperature 97.8 F Pulse Rate 93 H 94 H 96 H Respiratory Rate 16 Blood Pressure 131/61 Pulse Oximetry 99 08/11/18 02:24 08/11/18 03:00 08/11/18 04:00 Temperature 98 F Pulse Rate 94 H 94 H 96 H Respiratory Rate 16 Blood Pressure 125/58 L Pulse Oximetry 99 08/11/18 05:00 08/11/18 05:35 08/11/18 07:00 Temperature Pulse Rate 93 H 95 H Respiratory Rate Blood Pressure Pulse Oximetry 100 08/11/18 08:00 08/11/18 09:23 08/11/18 10:00 Temperature 97.6 F Pulse Rate 80 78 80 Respiratory Rate 16 Blood Pressure 125/58 L Pulse Oximetry 100 08/11/18 11:00 Temperature Pulse Rate 90 Respiratory Rate Blood Pressure Pulse Oximetry Intake & Output 08/10/18 08/11/18 08/11/18 18:59 06:59 18:59 Intake Total 3020.5 / 3020.5 3791.0 / 3791.0 Output Total 1353 / 1353 500 / 500 Balance 1667.5 / 1667.5 3291.0 / 3291.0 Weight 61.5 kg Intake: IV 2600.5 / 2600.5 3551.0 / 3551.0 SandoSTATIN Inj 500 MCG In NS 500.5 / 500.5 1001.0 / 1001.0 Inj 500 ML @ 50 MCG/HR 50.05 mls/hr IV.CONT .Q10H SHARAN Rx#: [id number] Protonix Inj 80 MG In NS Inj 100 / 100 200 / 200 100 ML @ 10 mls/hr IV.CONT Q10H SHARAN Rx#:[id number] NS Inj 1,000 ML @ 100 mls/hr IV 1999 / 1999 .CONT .Q10H SHARAN Rx#:[id number] Rocephin Inj 1,000 MG In NS Inj 100 / 100 100 ML @ 200 mls/hr IV.SIG Q24H SHARAN Rx#:[id number] Oral 120 / 120 240 / 240 Anesthesia Amount 300 / 300 Output: Urine 1350 / 1350 250 / 250 Stool 3 / 3 250 / 250 Other: Date of Last Bowel Movement 08/10/18 08/11/18 08/11/18 - Constitutional chronically ill appearing, cooperative - Routine HEENT Exam Head: Present: normocephalic - Routine Respiratory Exam Present: CTA bilaterally. Absent: accessory muscle use - Routine Cardiovascular Exam Present: RRR - Routine Abdominal Exam Present: soft, normoactive bowel sounds. Absent: tenderness, distended - Routine Skin Exam Present: dry, warm. Absent: pallor - Routine Neurological Exam Present: alert, oriented X3 Results - Labs CBC & Chem 7: 08/10/18 20:07 08/09/18 23:50 Laboratory Results - last 24 hr 08/10/18 08/10/18 17:43 20:07 Hgb 9.0 L 8.7 L Hct 26.0 L 26.2 L Microbiology 08/10/18 01:05 Clean Catch Urine Urine Culture - Preliminary Results Pending Assessment and Plan (1) Upper gastrointestinal hemorrhage Status: Acute Code(s): K92.2 - Gastrointestinal hemorrhage, unspecified (2) GI bleed Status: Acute Code(s): K92.2 - Gastrointestinal hemorrhage, unspecified - Plan This patient is a pleasant 72-year-old female with past medical history significant for cirrhosis and hepatitis A. Patient also has medical history of prior alcohol abuse. Surgical history significant for hysterectomy, back surgery, knee replacement and cholecystectomy. Patient presented to [facility] emergency room overnight with report of generalized weakness and melena stools with one episode of coffee-ground emesis. Patient spouse reports blood clots noted in emesis as well. Patient's past history includes liver cirrhosis and peptic ulcer disease with varices. Family reports patient had variceal bleeds banded at the [facility] 2 weeks ago. Prior to that she had variceal bleeding banded in April 2018. Of note, patient is currently being followed as a patient at the [facility] in [place] for possible liver transplant. Patient was due to have both EGD and colonoscopy done today at the [facility] and was prepping for same yesterday with Varun. Patient states her cirrhosis is related to her prior history of hepatitis a and prior alcohol use. Patient states that she stopped drinking alcohol 2 years ago. Patient denies any use of anti- inflammatory drugs, NSAIDs, blood thinners. States that she was instructed by her physicians at the [facility] to utilize Tylenol for any issues with pain. Hemoglobin 7.9 hematocrit 23.7 on arrival. This a.m. hemoglobin 8.6 and hematocrit 25.5. Patient has had no further episodes of bleeding. Patient currently on octreotide and pantoprazole drip. Last EGD performed April 2018 at the [facility] in [place] revealed varices that were banded. Colonoscopy at that time revealed poor prep and patient was rescheduled to have same done today. Again, patient endorses the cessation of alcohol use times 2 years and states she quit smoking 47 years ago. Our service has been consulted to evaluate patient for GI bleeding in the presence of cirrhotic history. GI bleed Coffee-ground emesis History of cirrhosis and hepatitis A Melena stools History of peptic ulcer disease and esophageal varices Patient presents to [facility] history of cirrhosis and hepatitis A. Patient endorses generalized weakness with melanotic stools and one episode of coffee-ground emesis. Patient has history of esophageal varices with banding most recent done 2 weeks ago at the [facility]. Last EGD performed 2017 at the [facility] in [place] revealed varices that were banded. 01/13/2018 EGD revealed the following : ESOPHAGUS: There were 2 columns of small varices in the distal esophagus. There was evidence of prior scarring. STOMACH: There was erythematous moderate gastritis in the gastric antrum. A biopsy was performed using cold forceps. Sample sent for histology. Moderate portal hypertensive gastropathy was found in the gastric antrum and gastric fundus. DUODENUM: The duodenal mucosa appeared normal in the bulb and second portion of the duodenum. WBC 7.6 hemoglobin 8.6 hematocrit 25.5 INR 1.3 Total bilirubin 1.1 AST 47 ALT 43 alk phos 108 ammonia 55 08/11/2018 Patient states tolerating clear liquid diet well No reported nausea or vomiting no reported bleeding Reports intermittent lower abdominal cramping with chills concerned about diverticulitis. Post EGD: 1. Portal hypertensive gastropathy was found in the entire examined stomach 2. Fresh blood clots in antrum and fundus 3. Grd III varices in mid and distal esophagus s/p EBLV 4. Retroflexed views revealed No gastric varices 08/10/2018 CT abdomen and pelvis reveal the following: Diverticulosis without diverticulitis. Stomach is distended and contains fluid/debris. 1 cm nodule right lower lobe, stable. Follow-up CT chest in 6 months recommended for stability. 08/09/2018 WBC 7.6; patient afebrile 97.6 Plan Advance to full liquid diet Ensure 1 can 3 times daily Monitor for active bleeding Monitor hemoglobin and hematocrit Octreotide decreased to 25 mcg/hour Resume home Meds--patient provided [facility] information Pantoprazole infusion Avoid anticoagulants and NSAIDs Avoid hepatotoxins Supportive care Patient to follow-up with the [facility] post discharge This patient has been seen by myself and this note is written on his back - Attending Attestation Dr. Monzon (2) GI bleed Qualifiers: GI bleed type/associated pathology: unspecified gastrointestinal hemorrhage type Qualified Code(s): K92.2 - Gastrointestinal hemorrhage, unspecified
--- NOTE | 2018-08-11 18:27 | P.PNIM ---
Subjective Interval history: The patient is in bed appears sleepy. She feels tired. No abdominal pain. No n/v. Denies palpitations. no BM today. no over bleeding. Physical Exam Vital signs: Vital Signs 08/10/18 19:00 08/10/18 20:00 08/10/18 21:00 Temperature 98.5 F Pulse Rate 94 H 94 H 92 H Respiratory Rate 16 Blood Pressure 126/60 Pulse Oximetry 99 08/10/18 22:00 08/10/18 23:00 08/11/18 00:00 Temperature 97.8 F Pulse Rate 90 94 H 93 H Respiratory Rate 16 Blood Pressure 131/61 Pulse Oximetry 99 08/11/18 01:00 08/11/18 02:00 08/11/18 02:24 Temperature 98 F Pulse Rate 94 H 96 H 94 H Respiratory Rate 16 Blood Pressure 125/58 L Pulse Oximetry 99 08/11/18 03:00 08/11/18 04:00 08/11/18 05:00 Temperature Pulse Rate 94 H 96 H 93 H Respiratory Rate Blood Pressure Pulse Oximetry 08/11/18 05:35 08/11/18 07:00 08/11/18 08:00 Temperature 97.6 F Pulse Rate 95 H 80 Respiratory Rate 16 Blood Pressure 125/58 L Pulse Oximetry 100 100 08/11/18 09:23 08/11/18 10:00 08/11/18 11:00 Temperature Pulse Rate 78 80 90 Respiratory Rate Blood Pressure Pulse Oximetry 08/11/18 12:00 08/11/18 13:00 08/11/18 14:00 Temperature 97.8 F Pulse Rate 80 82 87 Respiratory Rate 18 Blood Pressure 127/57 L Pulse Oximetry 99 08/11/18 15:00 08/11/18 16:00 08/11/18 17:00 Temperature 98.2 F Pulse Rate 96 H 84 87 Respiratory Rate 18 Blood Pressure 120/56 L Pulse Oximetry 98 08/11/18 18:00 Temperature Pulse Rate 90 Respiratory Rate Blood Pressure Pulse Oximetry Intake & Output 08/10/18 08/11/18 08/11/18 18:59 06:59 18:59 Intake Total 3020.5 / 3020.5 3791.0 / 3791.0 1600.5 / 1600.5 Output Total 1353 / 1353 500 / 500 Balance 1667.5 / 1667.5 3291.0 / 3291.0 1600.5 / 1600.5 Weight 61.5 kg Intake: IV 2600.5 / 2600.5 3551.0 / 3551.0 1600.5 / 1600.5 SandoSTATIN Inj 500 MCG In NS 500.5 / 500.5 1001.0 / 1001.0 500.5 / 500.5 Inj 500 ML @ 50 MCG/HR 50.05 mls/hr IV.CONT .Q10H [facility] Rx#: [id number] Protonix Inj 80 MG In NS Inj 100 / 100 200 / 200 100 / 100 100 ML @ 10 mls/hr IV.CONT Q10H [facility] Rx#:[id number] NS Inj 1,000 ML @ 100 mls/hr IV 2000 / 1999 2000 / 2000 1000 / 1000 .CONT .Q10H [facility] Rx#:[id number] Rocephin Inj 1,000 MG In NS Inj 100 / 100 100 ML @ 200 mls/hr IV.SIG Q24H [facility] Rx#:[id number] Oral 120 / 120 240 / 240 Anesthesia Amount 300 / 300 Output: Urine 1350 / 1350 250 / 250 Stool 3 / 3 250 / 250 Other: Date of Last Bowel Movement 08/10/18 08/11/18 08/11/18 Narrative: GENERAL: Pleasant frail 72 yo female, chronically ill, appears in nad. SKIN: Pale. Warm and dry. CARDIOVASCULAR: Regular rate and rhythm. RESPIRATORY: No accessory muscle use. Clear to auscultation. Breath sounds equal bilaterally. GASTROINTESTINAL: Abdomen soft, non-tender, nondistended. Hepatic and splenic margins not palpable. MUSCULOSKELETAL: Extremities without clubbing, cyanosis, or edema. No obvious deformities. NEUROLOGICAL: Awake and alert. No obvious cranial nerve deficits. Motor grossly within normal limits. Five out of 5 muscle strength in the arms and legs. Normal speech. PSYCHIATRIC: Appropriate mood and affect; insight and judgment normal. Results Labs CBC & Chem 7: 08/10/18 20:07 08/09/18 23:50 Labs: Microbiology 08/10/18 01:05 Clean Catch Urine Urine Culture - Final 10-50,000 cfu/mL mixed gram positive lissa (probable contaminants) Assessment and Plan (1) Upper gastrointestinal hemorrhage: Code(s): K92.2 - Gastrointestinal hemorrhage, unspecified Status: Acute (2) GI bleed: Code(s): K92.2 - Gastrointestinal hemorrhage, unspecified Status: Acute Plan Patient is a 72 yo F with PMh of Hep A, liver cirrhosis, EtOH use quit 2 years ago, presents with melena, generalized weakness and one episode of coffee- ground emesis. Patient has history of esophageal varices with banding most recent done 2 weeks ago at the [facility]. Last EGD performed 2017 at the [facility] in [place] revealed varices that were banded. GI consulted . EGD on 08/10/18 GI bleed. resolving Coffee-ground emesis History of cirrhosis and hepatitis A Melena stools History of peptic ulcer disease and esophageal varices 01/13/2018 EGD revealed the following : ESOPHAGUS: There were 2 columns of small varices in the distal esophagus. There was evidence of prior scarring. STOMACH: There was erythematous moderate gastritis in the gastric antrum. A biopsy was performed using cold forceps. Sample sent for histology. Moderate portal hypertensive gastropathy was found in the gastric antrum and gastric fundus. DUODENUM: The duodenal mucosa appeared normal in the bulb and second portion of the duodenum. -S/p EGD by Dr Monzon, with 6 band ligation -Monitor for active bleeding -Monitor hemoglobin hematocrit, and transfuse if HGB < 7 or if symptomatic - Monitor on tele -Cont Octreotide infusion at 50 mcg/h -Cont Pantoprazole infusion -Avoid anticoagulants -Avoid NSAIDs -Avoid hepatotoxins -With hypotension given IVF -Resume home medications including lactulose propranolol and diuretics if blood pressure permits, so far BP has been stable Note patient has h/o of hypotension, hypovolemic shock and ICU admission DVT ppx avoid chemical ppx as patient with GIB Discussed with the patient, nurse Progress Note: Quality VTE Deep Vein Thrombosis/Pulmonary Embolism Present on Admission: No _ (1) GI bleed Qualifiers: GI bleed type/associated pathology: unspecified gastrointestinal hemorrhage type Gastritis type: Qualified Code(s): K92.2 - Gastrointestinal hemorrhage, unspecified
[2018-08-11] MEDS ORDERED: Octreotide Inj 500 MCG/ML Vial IV.CONT SCH (19:00)
[2018-08-11] MEDS ORDERED: Octreotide Inj 500 MCG in Sodium Chlor 0.9% Inj 500 ML IV.CONT SCH ×4 (21:00)
[2018-08-11] MEDS: Furosemide 40 MG Tablet PO SCH (21:18)
[2018-08-12] MEDS: Pantoprazole Inj 80 MG in Sodium Chlor 0.9% Inj 100 ML IV.CONT SCH (03:16)
[2018-08-12] MEDS: Sod Chloride 0.9% Inj 1,000 ML IV.CONT SCH ×3 (03:23→23:46)
[2018-08-12 05:20] LABS: Baso % (Auto) 0.5 % (0.0-2.0); Eos # (Auto) 0.1 th/mm3 (0.0-0.4); Eos % (Auto) 2.4 % (0.0-4.0); Hematocrit 21.6 % (35.0-46.0); Hemoglobin 7.3 gm/dL (11.6-15.3); Lymph % (Auto) 19.7 % (9.0-44.0); Mean Corpuscular HGB Conc 33.6 % (32.0-36.0); Mean Corpuscular Hemoglobin 28.8 pg (27.0-34.0); Mean Corpuscular Volume 85.8 fL (80.0-100.0); Mean Platelet Volume 7.4 fL (7.0-11.0); Mono # (Auto) 0.8 th/mm3 (0.0-0.9); Mono % (Auto) 15.8 % (0.0-8.0); Neut # (Auto) 3.1 th/mm3 (1.8-7.7); Neut % (Auto) 61.6 % (16.0-70.0); Platelet Count 68 th/mm3 (150-450); Red Blood Count 2.52 mil/mm3 (4.00-5.30); Red Cell Distribution Width 18.4 % (11.6-17.2)
[2018-08-12 05:55] LABS: Alanine Aminotransferase 47 U/L (10-53); Albumin 2.5 g/dL (3.4-5.0); Alkaline Phosphatase 90 U/L (45-117); Anion Gap 8 meq/L (5-15); Aspartate Aminotransferase 50 U/L (15-37); Blood Urea Nitrogen 20 mg/dL (7-18); Calcium 7.1 mg/dL (8.5-10.1); Carbon Dioxide 22.7 meq/L (21.0-32.0); Chloride 106 meq/L (98-107); Glomerular Filtration Rate Greater Than 89 mL/min (>89); Glucose,Random 116 mg/dL (74-106); Potassium 3.3 meq/L (3.5-5.1); Sodium 137 meq/L (136-145); Total Protein 5.9 g/dL (6.4-8.2)
[2018-08-12 08:19] LABS: Ovalocytes 1+; Platelet Morphology Normal (Normal)
[2018-08-12] MEDS: rifAXIMin 550 MG Tablet PO SCH ×2 (09:16→21:09)
[2018-08-12] MEDS: Furosemide 40 MG Tablet PO SCH (09:17)
--- NOTE | 2018-08-12 10:07 | P.PNGI ---
Subjective Interval history: Patient laying in bed eating breakfast No report of nausea and vomiting no abdominal pain Physical Exam Vital signs: Vital Signs 08/11/18 11:00 08/11/18 12:00 08/11/18 13:00 Temperature 97.8 F Pulse Rate 90 80 82 Respiratory Rate 18 Blood Pressure 127/57 L Pulse Oximetry 99 08/11/18 14:00 08/11/18 15:00 08/11/18 16:00 Temperature 98.2 F Pulse Rate 87 96 H 84 Respiratory Rate 18 Blood Pressure 120/56 L Pulse Oximetry 98 08/11/18 17:00 08/11/18 18:00 08/11/18 19:00 Temperature Pulse Rate 87 90 84 Respiratory Rate Blood Pressure Pulse Oximetry 08/11/18 20:00 08/11/18 21:00 08/11/18 21:54 Temperature 97.8 F Pulse Rate 80 89 89 Respiratory Rate 18 Blood Pressure 119/53 L Pulse Oximetry 99 08/11/18 23:00 08/12/18 00:00 08/12/18 01:00 Temperature 98.1 F Pulse Rate 91 H 86 90 Respiratory Rate 18 Blood Pressure 119/56 L Pulse Oximetry 99 08/12/18 02:00 08/12/18 03:00 08/12/18 03:19 Temperature 98.4 F Pulse Rate 89 88 90 Respiratory Rate 18 Blood Pressure 113/56 L Pulse Oximetry 99 08/12/18 04:00 08/12/18 05:00 08/12/18 05:42 Temperature Pulse Rate 89 90 89 Respiratory Rate Blood Pressure Pulse Oximetry Intake & Output 08/11/18 08/12/18 08/12/18 18:59 06:59 18:59 Intake Total 2080.5 / 2080.5 1680 / 1680 Output Total 1600 / 1600 Balance 2080.5 / 2080.5 80 / 80 Weight 63.5 kg Intake: IV 1600.5 / 1600.5 1200 / 1200 SandoSTATIN Inj 500 MCG In NS 500.5 / 500.5 0 / 0 Inj 500 ML @ 50 MCG/HR 50.05 mls/hr IV.CONT .Q10H [facility] Rx#: [id number] Protonix Inj 80 MG In NS Inj 100 / 100 100 / 100 100 ML @ 10 mls/hr IV.CONT Q10H [facility] Rx#:[id number] NS Inj 1,000 ML @ 100 mls/hr IV 1000 / 1000 1000 / 1000 .CONT .Q10H [facility] Rx#:[id number] Rocephin Inj 1,000 MG In NS Inj 100 / 100 100 ML @ 200 mls/hr IV.SIG Q24H [facility] Rx#:[id number] Oral 480 / 480 480 / 480 Output: Urine 1600 / 1600 Other: # Voids 4 Date of Last Bowel Movement 08/11/18 08/11/18 # Bowel Movements 1 - Constitutional no acute distress - Routine HEENT Exam Head: Present: normocephalic - Routine Neck Exam Present: supple - Routine Respiratory Exam Present: CTA bilaterally - Routine Cardiovascular Exam Present: RRR, S1, S2 - Routine Abdominal Exam Present: soft, normoactive bowel sounds. Absent: tenderness, distended - Routine Extremities Exam Present: pulses intact, normal capillary refill - Routine Skin Exam Present: intact, petechiae, jaundice - Routine Neurological Exam Present: alert, oriented X3 Results - Labs CBC & Chem 7: 08/12/18 04:58 08/12/18 04:58 Laboratory Results - last 24 hr 08/12/18 08/12/18 08/12/18 04:58 04:58 04:58 WBC 5.0 RBC 2.52 L Hgb 7.3 L Hct 21.6 L MCV 85.8 MCH 28.8 MCHC 33.6 RDW 18.4 H Plt Count 68 L D MPV 7.4 Prelim Diff (Auto) Slide review pending Neut % (Auto) 61.6 Lymph % (Auto) 19.7 [place] % (Auto) 15.8 H Eos % (Auto) 2.4 Baso % (Auto) 0.5 Neut # (Auto) 3.1 Lymph # (Auto) 1.0 [place] # (Auto) 0.8 Eos # (Auto) 0.1 Baso # (Auto) 0.0 WBC Differential . Diff Scan Auto diff confirmed Differential Comment . Platelet Estimate Low L Platelet Morphology Normal Ovalocytes 1+ H Sodium 137 Potassium 3.3 L Chloride 106 Carbon Dioxide 22.7 Anion Gap 8 BUN 20 H Creatinine 0.54 Estimated GFR Greater than 89 Random Glucose 116 H Calcium 7.1 L* Calcium Adj for Albumin 8.3 L Total Bilirubin 0.7 AST 50 H ALT 47 Alkaline Phosphatase 90 Ammonia 45 H Total Protein 5.9 L D Albumin 2.5 L Microbiology 08/10/18 01:05 Clean Catch Urine Urine Culture - Final 10-50,000 cfu/mL mixed gram positive lissa (probable contaminants) Assessment and Plan (1) Upper gastrointestinal hemorrhage Status: Acute Code(s): K92.2 - Gastrointestinal hemorrhage, unspecified (2) GI bleed Status: Acute Code(s): K92.2 - Gastrointestinal hemorrhage, unspecified - Plan This patient is a pleasant 72-year-old female with past medical history significant for cirrhosis and hepatitis A. Patient also has medical history of prior alcohol abuse. Surgical history significant for hysterectomy, back surgery, knee replacement and cholecystectomy. Patient presented to [facility] emergency room overnight with report of generalized weakness and melena stools with one episode of coffee-ground emesis. Patient spouse reports blood clots noted in emesis as well. Patient's past history includes liver cirrhosis and peptic ulcer disease with varices. Family reports patient had variceal bleeds banded at the [facility] 2 weeks ago. Prior to that she had variceal bleeding banded in April 2018. Of note, patient is currently being followed as a patient at the [facility] in [place] for possible liver transplant. Patient was due to have both EGD and colonoscopy done today at the [facility] and was prepping for same yesterday with Varun. Patient states her cirrhosis is related to her prior history of hepatitis a and prior alcohol use. Patient states that she stopped drinking alcohol 2 years ago. Patient denies any use of anti- inflammatory drugs, NSAIDs, blood thinners. States that she was instructed by her physicians at the [facility] to utilize Tylenol for any issues with pain. Hemoglobin 7.9 hematocrit 23.7 on arrival. This a.m. hemoglobin 8.6 and hematocrit 25.5. Patient has had no further episodes of bleeding. Patient currently on octreotide and pantoprazole drip. Last EGD performed April 2018 at the [facility] in [place] revealed varices that were banded. Colonoscopy at that time revealed poor prep and patient was rescheduled to have same done today. Again, patient endorses the cessation of alcohol use times 2 years and states she quit smoking 47 years ago. Our service has been consulted to evaluate patient for GI bleeding in the presence of cirrhotic history. GI bleed Coffee-ground emesis History of cirrhosis and hepatitis A Melena stools History of peptic ulcer disease and esophageal varices Patient presents to [facility] history of cirrhosis and hepatitis A. Patient endorses generalized weakness with melanotic stools and one episode of coffee-ground emesis. Patient has history of esophageal varices with banding most recent done 2 weeks ago at the [facility]. Last EGD performed 2017 at the [facility] in [place] revealed varices that were banded. 01/13/2018 EGD revealed the following : ESOPHAGUS: There were 2 columns of small varices in the distal esophagus. There was evidence of prior scarring. STOMACH: There was erythematous moderate gastritis in the gastric antrum. A biopsy was performed using cold forceps. Sample sent for histology. Moderate portal hypertensive gastropathy was found in the gastric antrum and gastric fundus. DUODENUM: The duodenal mucosa appeared normal in the bulb and second portion of the duodenum. WBC 7.6 hemoglobin 8.6 hematocrit 25.5 INR 1.3 Total bilirubin 1.1 AST 47 ALT 43 alk phos 108 ammonia 55 08/11/2018 Patient states tolerating clear liquid diet well No reported nausea or vomiting no reported bleeding Reports intermittent lower abdominal cramping with chills concerned about diverticulitis. Post EGD: 1. Portal hypertensive gastropathy was found in the entire examined stomach 2. Fresh blood clots in antrum and fundus 3. Grd III varices in mid and distal esophagus s/p EBLV 4. Retroflexed views revealed No gastric varices 08/10/2018 CT abdomen and pelvis reveal the following: Diverticulosis without diverticulitis. Stomach is distended and contains fluid/debris. 1 cm nodule right lower lobe, stable. Follow-up CT chest in 6 months recommended for stability. 08/09/2018 WBC 7.6; patient afebrile 97.6 08/12/2018 Assessment Liver cirrhosis with esophageal varices Hypokalemia Hyper ammonia Status post EGD with portal hypertensive gastropathy grade 3 versus mild and distal esophagus status post EB LV Patient is for liver transplant in [facility] Patient does not have any more hematemesis is tolerating clear liquid diet Labs today hemoglobin 7.3 hematocrit 26 INR 1.3 Potassium 3.3 Liver enzymes are not bad 54 AST 47 ALT Ammonia level 45 and is trending down from yesterday's of 55 Plan Full liquid diet with supplements of Ensure with meals Monitor for active bleeding Monitor labs Discontinue octreotide this morning will start Nadolol 40 mg daily Please resume home meds PPI PO BID Electrolytes replacement per attending Hold anticoagulants and avoid NSAIDs Avoid hepatotoxins Supportive care Patient to follow-up with the [facility] post discharge for liver transplant GI will sign off, pls reconsult as needed. Patient can also follow-up at the office after appointment at [place]'s clinic as needed. This patient has been seen by myself and this note is written on his back - Attending Attestation Dr Monzon (2) GI bleed Qualifiers: GI bleed type/associated pathology: unspecified gastrointestinal hemorrhage type Qualified Code(s): K92.2 - Gastrointestinal hemorrhage, unspecified
[2018-08-12] MEDS: Acetaminophen 325 MG Tablet PO PRN (11:49)
[2018-08-12] MEDS ORDERED: Potassium Phosphate 500 MG Soluble Tablet PO ONE (12:20)
--- NOTE | 2018-08-12 12:24 | P.PNIM ---
Subjective Interval history: With low K, Phos, Ca and HGB Will transfuse 1U will replace lytes The patient is in the chair family at bedside, the patient says she feels very tired. Some shortness of breath however saturating well on room air. Noted tachycardic. No nausea or vomiting. No diarrhea or constipation. Physical Exam Vital signs: Vital Signs 08/11/18 13:00 08/11/18 14:00 08/11/18 15:00 Temperature Pulse Rate 82 87 96 H Respiratory Rate Blood Pressure Pulse Oximetry 08/11/18 16:00 08/11/18 17:00 08/11/18 18:00 Temperature 98.2 F Pulse Rate 84 87 90 Respiratory Rate 18 Blood Pressure 120/56 L Pulse Oximetry 98 08/11/18 19:00 08/11/18 20:00 08/11/18 21:00 Temperature 97.8 F Pulse Rate 84 80 89 Respiratory Rate 18 Blood Pressure 119/53 L Pulse Oximetry 99 08/11/18 21:54 08/11/18 23:00 08/12/18 00:00 Temperature 98.1 F Pulse Rate 89 91 H 86 Respiratory Rate 18 Blood Pressure 119/56 L Pulse Oximetry 99 08/12/18 01:00 08/12/18 02:00 08/12/18 03:00 Temperature Pulse Rate 90 89 88 Respiratory Rate Blood Pressure Pulse Oximetry 08/12/18 03:19 08/12/18 04:00 08/12/18 05:00 Temperature 98.4 F Pulse Rate 90 89 90 Respiratory Rate 18 Blood Pressure 113/56 L Pulse Oximetry 99 08/12/18 05:42 08/12/18 10:47 Temperature Pulse Rate 89 Respiratory Rate Blood Pressure Pulse Oximetry 99 Intake & Output 08/11/18 08/12/18 08/12/18 18:59 06:59 18:59 Intake Total 2080.5 / 2080.5 1680 / 1680 Output Total 1600 / 1600 Balance 2080.5 / 2080.5 80 / 80 Weight 63.5 kg Intake: IV 1600.5 / 1600.5 1200 / 1200 SandoSTATIN Inj 500 MCG In NS 500.5 / 500.5 0 / 0 Inj 500 ML @ 50 MCG/HR 50.05 mls/hr IV.CONT .Q10H [facility] Rx#: [id number] Protonix Inj 80 MG In NS Inj 100 / 100 100 / 100 100 ML @ 10 mls/hr IV.CONT Q10H [facility] Rx#:[id number] NS Inj 1,000 ML @ 100 mls/hr IV 1000 / 1000 1000 / 1000 .CONT .Q10H [facility] Rx#:[id number] Rocephin Inj 1,000 MG In NS Inj 100 / 100 100 ML @ 200 mls/hr IV.SIG Q24H [facility] Rx#:[id number] Oral 480 / 480 480 / 480 Output: Urine 1600 / 1600 Other: # Voids 4 Date of Last Bowel Movement 08/11/18 08/11/18 # Bowel Movements 1 Narrative: GENERAL: Pleasant frail 72 yo female, chronically ill, appears in nad. SKIN: Pale. Warm and dry. CARDIOVASCULAR: Regular rate and rhythm. RESPIRATORY: No accessory muscle use. Clear to auscultation. Breath sounds equal bilaterally. GASTROINTESTINAL: Abdomen soft, non-tender, nondistended. Hepatic and splenic margins not palpable. MUSCULOSKELETAL: Extremities without clubbing, cyanosis, or edema. No obvious deformities. NEUROLOGICAL: Awake and alert. No obvious cranial nerve deficits. Motor grossly within normal limits. Five out of 5 muscle strength in the arms and legs. Normal speech. PSYCHIATRIC: Appropriate mood and affect; insight and judgment normal. Results Labs CBC & Chem 7: 08/12/18 04:58 08/12/18 04:58 Labs: Microbiology 08/10/18 01:05 Clean Catch Urine Urine Culture - Final 10-50,000 cfu/mL mixed gram positive lissa (probable contaminants) Assessment and Plan (1) Upper gastrointestinal hemorrhage: Code(s): K92.2 - Gastrointestinal hemorrhage, unspecified Status: Acute (2) GI bleed: Code(s): K92.2 - Gastrointestinal hemorrhage, unspecified Status: Acute Plan Patient is a 72 yo F with PMh of Hep A, liver cirrhosis, EtOH use quit 2 years ago, presents with melena, generalized weakness and one episode of coffee- ground emesis. Patient has history of esophageal varices with banding most recent done 2 weeks ago at the [facility]. Last EGD performed 2017 at the [facility] in [place] revealed varices that were banded. GI consulted . EGD on 08/10/18 GI bleed. resolving Coffee-ground emesis History of cirrhosis and hepatitis A Melena stools History of peptic ulcer disease and esophageal varices 01/13/2018 EGD revealed the following : ESOPHAGUS: There were 2 columns of small varices in the distal esophagus. There was evidence of prior scarring. STOMACH: There was erythematous moderate gastritis in the gastric antrum. A biopsy was performed using cold forceps. Sample sent for histology. Moderate portal hypertensive gastropathy was found in the gastric antrum and gastric fundus. DUODENUM: The duodenal mucosa appeared normal in the bulb and second portion of the duodenum. -S/p EGD by Dr Monzon : with portal hypertensive gastropathy grade 3 versus mild and distal esophagus status post EB LV Patient is for liver transplant in [facility] Patient does not have any more hematemesis is tolerating clear liquid diet Labs today hemoglobin 7.3 hematocrit 26 INR 1.3. Give 1 U PRBCs Potassium 3.3, replaced Liver enzymes reassuring, 54 AST 47 ALT Ammonia level 45 and is trending down from yesterday's of 55, continue lactulose. -Monitor for active bleeding -Monitor hemoglobin hematocrit, and transfuse if HGB < 7 or if symptomatic - Monitor on tele -Cont Octreotide infusion at 50 mcg/h -Cont Pantoprazole infusion -Avoid anticoagulants -Avoid NSAIDs -Avoid hepatotoxins -With hypotension given IVF -Resume home medications including lactulose propranolol and diuretics if blood pressure permits, so far BP has been stable Note patient has h/o of hypotension, hypovolemic shock and ICU admission DVT ppx avoid chemical ppx as patient with GIB Discussed with the patient, nurse, family at bedside. Discussed with Jacque daughter requesting labs faxed to [facility]. Will fax labs Patient will likely be DC tomorrow family plans to transport her to [facility] ER tomorrow Progress Note: Quality VTE Deep Vein Thrombosis/Pulmonary Embolism Present on Admission: No _ (1) GI bleed Qualifiers: GI bleed type/associated pathology: unspecified gastrointestinal hemorrhage type Gastritis type: Qualified Code(s): K92.2 - Gastrointestinal hemorrhage, unspecified
[2018-08-12] MEDS ORDERED: Sodium Chlor 0.9% Inj 250 ML IV.SIG SCH (13:00)
[2018-08-12] MEDS ORDERED: Calcium Gluconate Inj 1 GM in Dextrose 5% in Water Inj 100 ML IV.SIG ONE ×2 (14:00)
[2018-08-12] MEDS ORDERED: Acetaminophen 120 MG Supp RECTAL PRN (15:58)
--- NOTE | 2018-08-12 18:14 | P.DS ---
DS: Providers Date of admission: 08/10/18 02:02 Primary care physician: No Primary Care Physician Consults: 08/10/18 02:05 Consult to Gastroenterology Routine Consulting Provider: Isaias Monzon V Reason for Consultation: GIB, hx of liver disease Notified:: Service Spoke with:: dedra Date Notified:: 08/10/18 Time Notified:: 04:07 Ordering Provider: RUPERT Brief History from admission: This patient is a pleasant 72-year-old female with past medical history significant for cirrhosis and hepatitis A. Patient also has medical history of prior alcohol abuse. Surgical history significant for hysterectomy, back surgery, knee replacement and cholecystectomy. Patient presented to [facility] emergency room overnight with report of generalized weakness and melena stools with one episode of coffee-ground emesis. Patient spouse reports blood clots noted in emesis as well. Patient's past history includes liver cirrhosis and peptic ulcer disease with varices. Family reports patient had variceal bleeds banded at the [facility] 2 weeks ago. Prior to that she had variceal bleeding banded in April 2018. Of note, patient is currently being followed as a patient at the [facility] in [place] for possible liver transplant. Patient was due to have both EGD and colonoscopy done today at the [facility] and was prepping for same yesterday with Varun. Patient states her cirrhosis is related to her prior history of hepatitis a and prior alcohol use. Patient states that she stopped drinking alcohol 2 years ago. Patient denies any use of anti- inflammatory drugs, NSAIDs, blood thinners. States that she was instructed by her physicians at the [facility] to utilize Tylenol for any issues with pain. Hemoglobin 7.9 hematocrit 23.7 on arrival. This a.m. hemoglobin 8.6 and hematocrit 25.5. Patient has had no further episodes of bleeding. Patient currently on octreotide and pantoprazole drip. Last EGD performed April 2018 at the [facility] in [place] revealed varices that were banded. Colonoscopy at that time revealed poor prep and patient was rescheduled to have same done today. Cessation of alcohol use 2 years ago and states she quit smoking 47 years ago. The patient is tired. DS: Diagnosis Discharge Diagnosis (1) Upper gastrointestinal hemorrhage: Status: Acute (2) GI bleed: Status: Acute DS: Summary Patient is a 72 yo F with PMh of Hep A, liver cirrhosis, EtOH use quit 2 years ago, presents with melena, generalized weakness and one episode of coffee- ground emesis. Patient has history of esophageal varices with banding most recent done 2 weeks ago at the [facility]. Last EGD performed 2017 at the [facility] in [place] revealed varices that were banded. GI consulted . EGD on 08/10/18. The patient came with GI bleed coffee-ground emesis and melanotic stools. Patient with history of cirrhosis and hepatitis A. patient also with a history of peptic ulcer disease and esophageal varices. The patient was transfused 1 unit of blood in the emergency room. She had EGD by Dr. Dr Monzon : with portal hypertensive gastropathy grade 3 versus mild and distal esophagus status post EB LV. Patient is for liver transplant in [facility] Patient does not have any more hematemesis is tolerating clear liquid diet on 08/12 hemoglobin 7.3 hematocrit 26 INR 1.3. Give 1 U PRBCs. Potassium 3.3, replaced. Liver enzymes reassuring, 54 AST 47 ALT. Ammonia level 45 and is trending down from yesterday's of 55, continue lactulose. DC propranolol, added nadolol 40 mg daily. Also add rifaximin. Continue lasix, spironolactone. Patient is stable DC home in stable conditin to follow up as OP with PCP and consultants. Patient will follow up at [facility] for liver transplant. INR on 08/09 of 1.3 at patient baseline it seems GI bleed. Resolved Coffee-ground emesis on admission, resolved. History of cirrhosis and hepatitis A Melena stools History of peptic ulcer disease and esophageal varices 01/13/2018 EGD revealed the following : ESOPHAGUS: There were 2 columns of small varices in the distal esophagus. There was evidence of prior scarring. STOMACH: There was erythematous moderate gastritis in the gastric antrum. A biopsy was performed using cold forceps. Sample sent for histology. Moderate portal hypertensive gastropathy was found in the gastric antrum and gastric fundus. DUODENUM: The duodenal mucosa appeared normal in the bulb and second portion of the duodenum. -S/p EGD by Dr Monzon : with portal hypertensive gastropathy grade 3 versus mild and distal esophagus status post EB LV Patient is for liver transplant in [facility] Patient does not have any more hematemesis is tolerating clear liquid diet Labs today hemoglobin 7.3 hematocrit 26 INR 1.3. Give 1 U PRBCs Potassium 3.3, replaced Liver enzymes reassuring, 54 AST 47 ALT Ammonia level 45 and is trending down from yesterday's of 55, continue lactulose. -Monitor for active bleeding -Monitor hemoglobin hematocrit, and transfuse if HGB < 7 or if symptomatic - Monitor on tele -Cont Octreotide infusion at 50 mcg/h -Cont Pantoprazole infusion -Avoid anticoagulants -Avoid NSAIDs -Avoid hepatotoxins -With hypotension given IVF -Resume home medications including lactulose propranolol and diuretics if blood pressure permits, so far BP has been stable Note patient has h/o of hypotension, hypovolemic shock and ICU admission DVT ppx avoid chemical ppx as patient with GIB The patient improved, hemoglobin stable at 9. Vital signs stable. Labs faxed to [facility] per family and patient request. Patient will follow-up at [facility] with GI. Time Spent with Patient Total time spent providing and/or coordinating discharge services: > 30 min Quality: VTE Deep Vein Thrombosis/Pulmonary Embolism Present on Admission: No Exam Narrative Exam Narrative: GENERAL: Pleasant frail 72 yo female, chronically ill, appears in nad. SKIN: Pale. Warm and dry. CARDIOVASCULAR: Regular rate and rhythm. RESPIRATORY: No accessory muscle use. Clear to auscultation. Breath sounds equal bilaterally. GASTROINTESTINAL: Abdomen soft, non-tender, nondistended. Hepatic and splenic margins not palpable. MUSCULOSKELETAL: Extremities without clubbing, cyanosis, or edema. No obvious deformities. NEUROLOGICAL: Awake and alert. No obvious cranial nerve deficits. Motor grossly within normal limits. Five out of 5 muscle strength in the arms and legs. Normal speech. PSYCHIATRIC: Appropriate mood and affect; insight and judgment normal. Results Labs on day of discharge: Labs from last 24 hours 08/12/18 08/12/18 08/12/18 04:58 04:58 04:58 WBC 5.0 RBC 2.52 L Hgb 7.3 L Hct 21.6 L MCV 85.8 MCH 28.8 MCHC 33.6 RDW 18.4 H Plt Count 68 L D MPV 7.4 Prelim Diff (Auto) Slide review pending Neut % (Auto) 61.6 Lymph % (Auto) 19.7 [place] % (Auto) 15.8 H Eos % (Auto) 2.4 Baso % (Auto) 0.5 Neut # (Auto) 3.1 Lymph # (Auto) 1.0 [place] # (Auto) 0.8 Eos # (Auto) 0.1 Baso # (Auto) 0.0 WBC Differential . Diff Scan Auto diff confirmed Differential Comment . Platelet Estimate Low L Platelet Morphology Normal Ovalocytes 1+ H Sodium 137 Potassium 3.3 L Chloride 106 Carbon Dioxide 22.7 Anion Gap 8 BUN 20 H Creatinine 0.54 Estimated GFR Greater than 89 Random Glucose 116 H Calcium 7.1 L* Calcium Adj for Albumin 8.3 L Total Bilirubin 0.7 AST 50 H ALT 47 Alkaline Phosphatase 90 Ammonia 45 H Total Protein 5.9 L D Albumin 2.5 L MTS Gel Crossmatch 08/10/18 00:42 WBC RBC Hgb Hct MCV MCH MCHC RDW Plt Count MPV Prelim Diff (Auto) Neut % (Auto) Lymph % (Auto) [place] % (Auto) Eos % (Auto) Baso % (Auto) Neut # (Auto) Lymph # (Auto) [place] # (Auto) Eos # (Auto) Baso # (Auto) WBC Differential Diff Scan Differential Comment Platelet Estimate Platelet Morphology Ovalocytes Sodium Potassium Chloride Carbon Dioxide Anion Gap BUN Creatinine Estimated GFR Random Glucose Calcium Calcium Adj for Albumin Total Bilirubin AST ALT Alkaline Phosphatase Ammonia Total Protein Albumin MTS Gel Crossmatch See Detail Impressions ITS Impressions Chest X-Ray 08/09/18 23:34 CONCLUSION: No acute intracranial abnormality Abdomen/Pelvis CT 08/10/18 00:46 CONCLUSION: 1. Cirrhosis with splenomegaly and minimal ascites. 2. Diverticulosis without diverticulitis. 3. Stomach is distended and contains fluid/debris. 4. 1 cm nodule right lower lobe, stable. Follow-up CT chest in 6 months recommended for stability. Discharge Plan Discharge Disposition Patient Disposition: Disch W/Home Health Service Discharge Condition Condition: Fair Discharge Order Discharge Orders: Discharge Order (Routine); Ordered 08/13/18 Ordered By: Malena Orellana Discharge Details Anticipated Discharge Date: 08/13/18 Discharge Comment: DC when cleared by GI , tolerates food and no more bleeding Physicians Team ED Provider: Charity Tena Primary Care Provider: Primary Care Zak,Katrina Attending Provider: Malena Orellana Other Providers: Isaias Monzon V Rxs /Orders / Referrals /Forms Prescriptions: New spironolactone 100 mg Tablet 150 mg PO DAILY Qty: 30 RF: 0 rifaximin [Xifaxan] 550 mg Tablet 550 mg PO Q12HR Qty: 60 RF: 0 furosemide 40 mg Tablet 40 mg PO DAILY Qty: 30 RF: 0 nadolol 40 mg Tablet 40 mg PO DAILY Qty: 30 RF: 0 Continue amantadine HCl 100 mg Tablet 100 mg PO BID RF: 0 valacyclovir 1 gram Tablet 1,000 mg PO BID RF: 0 sertraline 50 mg Tablet 50 mg PO DAILY RF: 0 lactulose 10 gram/15 mL Solution 10 g PO BID RF: 0 pantoprazole 40 mg Tablet,Delayed Release (Dr/Ec) 40 mg PO DAILY Qty: 30 RF: 0 Discontinued spironolactone 100 mg Tablet 200 mg PO DAILY RF: 0 furosemide 80 mg Tablet 80 mg PO DAILY RF: 0 furosemide 20 mg Tablet 20 mg PO DAILY Qty: 30 RF: 0 spironolactone 50 mg Tablet 50 mg PO DAILY Qty: 30 RF: 0 propranolol 20 mg Tablet 20 mg PO DAILY Qty: 30 RF: 0 Ambulatory Orders / Order Sets / DME: CT chest w IV con (Routine) Timeframe: 6 Months Location: Determined by Patient Ordered By: Malena Orellana Referrals: Isaias Monzon MD [Physician] - See Instructions ( Please call the physician's office to book the appointment to be seen within [1 -2 weeks ]. Follow up with your GI Dr and at [facility] ) Primary Care Katrina Cerspo [Primary Care Provider] - See Instructions ( Please call the physician's office to book the appointment to be seen within [2-3 days ].) Discharge Instructions Patient Printed Instructions: Nadolol (By mouth), Spironolactone (By mouth), Furosemide (By mouth), Rifaximin (By mouth), Gastrointestinal Bleeding (DC) Status ED Status: Left Department Discharge Information Discharge Date/Time: 08/13/18 13:00
[2018-08-12] MEDS: Nadolol 40 MG Tablet PO SCH (18:41)
[2018-08-12] MEDS ORDERED: Acetaminophen 325 MG Tablet PO ONE (20:45)
[2018-08-12 23:21] VITALS: O2SAT 98
[2018-08-13 05:19] VITALS: BP 117/60; RESP 16; TEMP 98.3
[2018-08-13 06:04] VITALS: PULSE 80
[2018-08-13 06:43] LABS: Baso % (Auto) 0.3 % (0.0-2.0); Eos # (Auto) 0.1 th/mm3 (0.0-0.4); Eos % (Auto) 2.2 % (0.0-4.0); Hematocrit 26.8 % (35.0-46.0); Lymph # (Auto) 0.8 th/mm3 (1.0-4.8); Lymph % (Auto) 16.1 % (9.0-44.0); Mean Corpuscular HGB Conc 33.5 % (32.0-36.0); Mean Corpuscular Hemoglobin 29.1 pg (27.0-34.0); Mean Corpuscular Volume 86.8 fL (80.0-100.0); Mean Platelet Volume 7.8 fL (7.0-11.0); Mono # (Auto) 0.9 th/mm3 (0.0-0.9); Mono % (Auto) 18.2 % (0.0-8.0); Neut # (Auto) 3.1 th/mm3 (1.8-7.7); Neut % (Auto) 63.2 % (16.0-70.0); Platelet Count 73 th/mm3 (150-450); Red Blood Count 3.09 mil/mm3 (4.00-5.30); Red Cell Distribution Width 17.9 % (11.6-17.2); White Blood Count 4.9 th/mm3 (4.0-11.0)
[2018-08-13 07:23] LABS: Anion Gap 8 meq/L (5-15); Blood Urea Nitrogen 15 mg/dL (7-18); Calcium 7.4 mg/dL (8.5-10.1); Carbon Dioxide 25.3 meq/L (21.0-32.0); Chloride 103 meq/L (98-107); Glomerular Filtration Rate Greater Than 89 mL/min (>89); Glucose,Random 139 mg/dL (74-106); Potassium 3.4 meq/L (3.5-5.1); Sodium 136 meq/L (136-145)
[2018-08-13 07:40] LABS: Albumin 2.5 g/dL (3.4-5.0); Calcium-Albumin Corrected 8.6 mg/dL (8.5-10.1)
[2018-08-13] MEDS ORDERED: Potassium Chloride 10 MEQ ER Capsule PO ONE (10:30)
[2018-08-13] MEDS ORDERED: Acetaminophen 325 MG Tablet PO ONE (10:37)
[2018-08-13] MEDS: rifAXIMin 550 MG Tablet PO SCH (11:10)
[2018-08-13] MEDS: Nadolol 40 MG Tablet PO SCH (11:10)
[2018-08-13] MEDS: Furosemide 40 MG Tablet PO SCH (11:13)
[2018-08-13] MEDS: Sod Chloride 0.9% Inj 1,000 ML IV.CONT SCH (11:53)
== END 2018-08-13 13:00 | disposition home health service (06) | DRG 369 ==
LOC: NEPE 23:12 → NEDA 08-10 02:02 → HCIS 08-10 04:00
PROVIDERS: ADMIT Hospitalist; ATTEND Hospitalist
PROC: PANENDO (2018-08-10 13:59)
DX: B15.9 Hepatitis A without hepatic coma; I95.9 Hypotension, unspecified; E87.6 Hypokalemia; K31.89 Other diseases of stomach and duodenum; Z87.11 Personal history of peptic ulcer disease; R91.8 Other nonspecific abnormal finding of lung field; Z96.652 Presence of left artificial knee joint; K74.60 Unspecified cirrhosis of liver; D62 Acute posthemorrhagic anemia; K76.6 Portal hypertension; Z76.82 Awaiting organ transplant status; I85.11 Secondary esophageal varices with bleeding; Z87.891 Personal history of nicotine dependence; R91.1 Solitary pulmonary nodule
CPT/HCPCS: 36430; 71010; 71045; 74177; 80048; 80053; 81001; 82040; 82140; 83690; 83735; 84484; 85014; 85018; 85025; 85610; 85730; 86850; 86900; 86901; 86923; 87086; 90761; 90765; 90775; 96361; 96365; 96375; 99291; C9113; J0610; J0696; J2354; J2405; J2704; J7030; J7040; J7050; P9016; Q9967